=== PATIENT | female | born 1965 | race Caucasian/White ===

== ENCOUNTER 2019-07-26 22:20 | Emergency (ER) | payer MEDICARE, SELFPAY ==
[2019-07-26 22:36] VITALS: BP 127/84; PULSE 87; RESP 20; TEMP 37.1; O2SAT 98; BMI 28.3
--- NOTE | 2019-07-26 22:51 | CT_ITS ---
PROCEDURE: CT THORACIC SPINE WO CON CLINICAL HISTORY: BACK PAIN Posttraumatic pain, right-sided back pain following injury, history of breast cancer COMPARISON: No exams were available for comparison TECHNIQUE: Axial images obtained with sagittal and coronal reformats. All CT scans at the facility use one or more dose reduction, viz: automated exposure control, ma/kV adjustment per patient size (including targeted exams where dose is matched to indication, i.e. head), or iterative reconstruction technique. FINDINGS: Normal alignment. No thoracic fracture or dislocation. There is mild degenerative disc disease from T4 to T11 with small ventral osteophytes. No lytic or blastic change. IMPRESSION: Thoracic spondylosis. No acute fracture of the thoracic spine Dictated by: Bobby Holloway MD 07/27/2019 08:50 Electronically signed by Bobby Holloway MD in [place] 07/27/2019 08:50
--- NOTE | 2019-07-26 22:51 | CT_ITS ---
PROCEDURE: CT LUMBAR SPINE WO CON CLINICAL HISTORY: BACK PAIN Posttraumatic pain right-sided back rib, history of breast cancer COMPARISON: No exams were available for comparison TECHNIQUE: Axial images obtained with sagittal and coronal reformats. All CT scans at the facility use one or more dose reduction, viz: automated exposure control, ma/kV adjustment per patient size (including targeted exams where dose is matched to indication, i.e. head), or iterative reconstruction technique. FINDINGS: Normal alignment. No fracture or dislocation. Mild bulging disc at L3-L4 with mild facet and ligamentum hypertrophy and mild bilateral foraminal narrowing. Bulging disc at L4-5 with facet and ligamentum hypertrophy with bilateral foraminal narrowing and mild bilateral lateral recess narrowing with borderline narrowing of the canal. L5-S1: Bulging disc with facet ligamentum hypertrophic change. IMPRESSION: 1. No acute fracture. 2. Bulging disc from L3-S1 with facet ligamentum hypertrophy Dictated by: Bobby Holloway MD 07/27/2019 08:48 Electronically signed by Bobby Holloway MD in [facility] 07/27/2019 08:48
--- NOTE | 2019-07-26 23:01 | CT_ITS ---
PROCEDURE: CT ABDOMEN PELVIS W CON CLINICAL INDICATION: fall from hammock Posttraumatic pain, fall with injury and pain, blunt trauma, contusion or hematoma, increasing pain, history of breast cancer COMPARISON: ABDPELW/O CT ABD PELVIS W/O CONTRAST from 11/02/2015 TECHNIQUE: IV Contrast: 75ML OPTIRAY 350 Oral Contrast 20ml Gastroview Axial images obtained with sagittal and coronal reformats. All CT scans at the facility use one or more dose reduction, viz: automated exposure control, ma/kV adjustment per patient size (including targeted exams where dose is matched to indication, i.e. head), or iterative reconstruction technique. FINDINGS: There are atelectatic changes in the right lower lobe. There is a nondisplaced right 10th rib fracture posteriorly. No evidence of basilar pneumothorax. Breast implants are present. The liver has an unremarkable appearance. There are post cholecystectomy changes. No perihepatic fluid collection or hepatic laceration. The spleen has an unremarkable appearance. The adrenal glands are unremarkable. There is a 1 cm hypodensity of the right kidney suggesting a renal cyst. Sub cm hypodensity left kidney also suggesting a cyst. Too small to categorize. There is a 5 mm hypodensity in the head of the pancreas anteriorly image 41 series 3 and may be due to small cyst probably unchanged. No intestinal obstruction or free air. No evidence of appendicitis or diverticulitis. No localized fluid collections. No pelvic mass or abnormal fluid collection in the pelvis. Nondisplaced right 10th rib fracture. No other acute bony anomalies evident. IMPRESSION: 1. Nondisplaced right 10th rib fracture. 2. 5 mm hypodensity of the pancreatic head. Recommend six-month follow-up CT or MRI with pancreatic protocol to confirm short term stability Dictated by: Bobby Holloway MD 07/27/2019 08:44 Electronically signed by Bobby Holloway MD in [facility] 07/27/2019 08:44
--- NOTE | 2019-07-26 23:07 | HMH.EDFALL ---
ED Disposition Clinical Impression: Lumbar pain Rib fracture Qualifiers: Encounter type: subsequent encounter Rib fracture type: single rib Fracture type: closed Laterality: right Fracture healing: with routine healing Qualified Code(s): S22.31XD - Fracture of one rib, right side, subsequent encounter for fracture with routine healing Strain of lumbar region Qualifiers: Encounter type: initial encounter Qualified Code(s): S39.012A - Strain of muscle, fascia and tendon of lower back, initial encounter Disposition: Home, Self-Care Condition on Discharge: Good Instructions: DI for Low Back Pain, DI for Rib Fracture Additional Instructions: call pcp in am for follow up Prescriptions: Ketorolac Tromethamine [Toradol 10mg tablet] 10 mg PO Q6H 3 Days #12 tab Transmission Status: Pending to [facility] #[id number] Referrals: Alessandro Trejo [Primary Care Provider] - - Critical Care Critical Care Time: No Attestation: On 07/26/19, the high probability of a clinically significant, sudden or life threatening deterioration of the following system(s) required my full and direct attention, intervention and personal management. The time I documented below is in addition to time spent performing reported procedures but includes the following listed in this critical care notation. Medical Decision Making - Medical Records Medical records reviewed: Yes: I reviewed the patient's medical records. - Jeevan Inquiry Pt receiving controlled substance: No Vital Signs: 07/26/19 22:36 Temperature 98.8 F Temperature Source Oral Pulse Rate [Left Brachial] 87 Respiratory Rate 20 Blood Pressure [Left Arm] 127/84 Blood Pressure Mean [Left Arm] 98 Blood Pressure Source [Left Arm] Automatic Cuff Blood Pressure Position [Left Arm] Sitting 02 Sat by Pulse Oximetry 98 Oxygen Delivery Method Room Air - Lab Data Lab results reviewed: Yes: I reviewed the patient's lab results. Lab Results 07/26/19 23:05: WBC 7.2, RBC 4.84, Hgb 14.0, Hct 40.8, MCV 84.4, MCH 28.9, MCHC 34.2, RDW 14.8, Plt Count 227, MPV 7.3 L, Neut % (Auto) 67.7, Lymph % (Auto) 23.8, Boyd % (Auto) 4.6, Eos % (Auto) 3.5, Baso % (Auto) 0.5, Neut # (Auto) 4.9, Lymph # (Auto) 1.7, Boyd # (Auto) 0.3, Eos # (Auto) 0.3, Baso # (Auto) 0.0 07/26/19 23:05: Sodium 140, Potassium 4.1, Chloride 105, Carbon Dioxide 28, Anion Gap 11.1, BUN 13, Creatinine 0.50 L, Estimated Creat Clear 155, Estimated GFR 128, Est GFR ( Amer) 155, Glucose 112 H, Calcium 9.4, Total Bilirubin 0.3, AST 23, ALT 24, Alkaline Phosphatase 98, Total Protein 7.3, Albumin 4.3, Globulin 3.0, Albumin/Globulin Ratio 1.4 Result diagrams: 07/26/19 23:05 07/26/19 23:05 Orders (Tests/Meds): ED MEDICATIONS Discontinued Medications Generic Name Dose Route Start Last Admin Trade Name Freq PRN Reason Stop Dose Admin Ioversol 75 ml 07/27/19 00:04 07/27/19 00:05 Rad-Optiray 350 100ml Vial IV 07/27/19 00:05 75 ml ONCE ONE Administration Protocol Ketorolac Tromethamine 30 mg 07/26/19 23:10 07/26/19 23:16 Toradol 30mg/Ml Vial IV 07/26/19 23:11 30 mg ONCE ONE Administration Sodium Chloride 10 ml 07/27/19 00:04 07/27/19 00:05 Rad-Saline Flush 10ml Syringe IV 07/27/19 00:05 10 ml ONCE ONE Administration ORDERS Category Date Time Status CT abdomen pelvis w con Stat Cat Scan 07/26/19 23:[address] lumbar spine wo con Stat Cat Scan 07/26/19 22:[address] thoracic spine wo con Stat Cat Scan 07/26/19 22:51 Taken XR pelvis 1-2V Stat Exams 07/27/19 00:01 Taken XR ribs RT min 3V w CXR1V Stat Exams 07/27/19 00:01 Taken Urinalysis and Microscopic Stat Lab 07/26/19 23:01 Ordered - Radiology Data #1 Image(s): Chest, Pelvis Image Reviewed: Yes I reviewed the patient's radiology image Preliminary Findings: Normal/NAD - CT Data CT Scan: Abdomen, Pelvis, T-Spine, L-Spine Time Received: 00:[address] Reviewed: Yes: I have viewed the radiologist
[2019-07-26 23:13] LABS: Basophils % 0.5 % (0.1-2.0); Eosinophils # 0.3 K/mm3 (0.0-0.4); Eosinophils % 3.5 % (0.1-12.0); Hematocrit 40.8 % (37.0-47.0); Lymphocytes # 1.7 K/mm3 (0.7-4.5); Lymphocytes % 23.8 % (10-50); Mean Corpuscular HGB Conc 34.2 g/dL (31.8-35.4); Mean Corpuscular Hemoglobin 28.9 pg (27.0-31.2); Mean Corpuscular Volume 84.4 fl (81-99); Mean Platelet Volume 7.3 fl (7.4-10.4); Monocytes # 0.3 K/mm3 (0.1-1.0); Monocytes % 4.6 % (1.7-9.3); Neutrophils # 4.9 K/mm3 (1.8-7.8); Neutrophils % 67.7 % (37.0-80.0); Platelet Count 227 K/mm3 (142-424); Red Blood Count 4.84 M/mm3 (4.20-5.40); Red Cell Distribution Width 14.8 % (11.5-17.5); White Blood Count 7.2 K/mm3 (4.8-10.8)
[2019-07-26 23:23] LABS: Alanine Aminotransferase 24 U/L (12-78); Albumin Level 4.3 g/dl (3.5-5.0); Albumin/Globulin Ratio 1.4 (1.1-1.8); Alkaline Phosphatase 98 U/L (38-126); Anion Gap 11.1 mEq/L (5-15); Aspartate Amino Transferase 23 U/L (14-36); Bilirubin,Total 0.3 mg/dl (0.2-1.3); Blood Urea Nitrogen 13 mg/dl (7-17); Calcium 9.4 mg/dl (8.4-10.2); Carbon Dioxide 28 mmol/L (22.0-30.0); Chloride 105 mmol/L (98-107); Creatinine Clearance Estimated 155 mL/min (50-200); Estimated Glomerular Filt Rate 128 ml/min (>60); GFR (African American) 155 ML/MIN (>60); Glucose 112 mg/dl (74-100); Potassium 4.1 mmoL/L (3.5-5.1); Sodium 140 mmol/L (136-145); Total Protein,Serum 7.3 g/dl (6.3-8.2)
--- NOTE | 2019-07-27 00:01 | XR_ITS ---
PROCEDURE: XR PELVIS 1-2V CLINICAL INDICATION: fell from hammock Posttraumatic pain COMPARISON: No exams were available for comparison TECHNIQUE: XR Pelvis AP View FINDINGS: No fracture or dislocation is evident. No significant degenerative change. Contrast is present within the urinary bladder both kidneys and ureters. No evidence of contrast extravasation IMPRESSION: No acute findings. Dictated by: Bobby Holloway MD 07/27/2019 08:13 Electronically signed by Bobby Holloway MD in [place] 07/27/2019 08:13
--- NOTE | 2019-07-27 00:01 | XR_ITS ---
PROCEDURE: XR RIBS RT MIN 3V W CXR1V CLINICAL INDICATION: PAIN Worsening right-sided rib pain following injury COMPARISON: CT ABDOMEN PELVIS W CON from 07/26/2019 FINDINGS: Frontal view of the chest shows mild atelectatic changes in the right lower lobe. No displaced fractures are apparent. Six CT abdomen demonstrated nondisplaced fracture of the right 10th rib which is below limits of resolution on these images. IMPRESSION: Right basilar atelectasis. No displaced fractures evident. Known right 10th rib fracture nondisplaced not well delineated on these images Dictated by: Bobby Holloway MD 07/27/2019 08:15 Electronically signed by Bobby Holloway MD in [place] 07/27/2019 08:15
[2019-07-27 00:55] VITALS: BP 127/84; PULSE 87; RESP 20; TEMP 37.1; O2SAT 98
== END 2019-07-27 01:07 | disposition home or self-care (01) ==
PROVIDERS: Emergency Provider Emergency Medicine; PCP Pediatrics
DX: S22.31XA Fracture of one rib, right side, initial encounter for closed fracture (principal); S39.012A Strain of muscle, fascia and tendon of lower back, initial encounter; W08.XXXA Fall from other furniture, initial encounter; Y92.017 Garden or yard in single-family (private) house as the place of occurrence of the external cause; F17.210 Nicotine dependence, cigarettes, uncomplicated; Z88.2 Allergy status to sulfonamides; Z88.5 Allergy status to narcotic agent
CPT/HCPCS: 71101; 72128; 72131; 72170; 74177; 80053; 85025; 96374; 99284; Q9967

== ENCOUNTER → 2021-03-14 15:20 | Outpatient (CLI) | payer MEDICARE, SELFPAY | PROVIDERS: PCP Pediatrics; Visit Provider Nurse Practitioner | DX: U07.1 COVID-19 (principal) | CPT/HCPCS: C9803; U0003; U0005 ==

== ENCOUNTER 2021-03-15 13:20 | Emergency (ER) | payer MEDICARE, SELFPAY ==
[2021-03-15 13:50] VITALS: BP 138/89; PULSE 89; RESP 17; TEMP 36.8; O2SAT 98; BMI 27.8
--- NOTE | 2021-03-15 14:16 | HMH.EDUTC ---
[facility] Disposition Clinical Impression: COVID-19 Disposition: Home, Self-Care Condition on Discharge: Good Instructions: DI for COVID-19 (Suspected or Confirmed ), Preventing the Spread of Coronavirus Discharge Instructions Additional Instructions: ? Start antibiotic today. Be sure to complete entire prescription even if feeling better ? Monitor temp. Tylenol every 4 hours as needed and / or ibuprofen every 6 hours as needed ( As long as your primary care physician has told you that it ok to take both. For fever/aches/pains ER if no less than 101 despite Tylenol or Motrin ? Humidifier/vaporizer or hot steamy shower ? Inhaler every 4-6 hours as needed like we discussed. If unsure how to use it, ask pharmacist to demonstrate how. Should help open airways and improve cough, wheezing, and shortness of breath ? Mucinex for your cough Be sure to drink lots of water. Follow up IMMEDIATELY for new or worsening of symptoms OR no noticeable improvement over the next 48-72 hours. 911 immediately for any life threatening symptoms such as chest pain or difficulty breathing Prescriptions: Albuterol Sulfate [Proventil-HFA 90mcg/puff Inh] 1 - 2 puffs IH Q6HP PRN #1 each PRN Reason: Shortness Of Breath Transmission Status: Pending to [facility] guaiFENesin [Mucinex] 1,200 mg PO Q12HP PRN #10 tab PRN Reason: Congestion Transmission Status: Pending to [facility] methylPREDNISolone [Medrol 4mg tab] 4 mg PO DIRECTED #21 tab Transmission Status: Pending to [facility] Referrals: Alessandro Trejo [Primary Care Provider] - As needed Forms: Work/School Release Time of Disposition: 14:29 Medical Decision Making - Jeevan Inquiry Pt receiving controlled substance: No Jeevan was queried for this patient: No Vital Signs: 03/15/21 13:50 Temperature 98.3 F Temperature Source Oral Pulse Rate [Right Brachial] 89 Respiratory Rate 17 Blood Pressure [Right Arm] 138/89 Blood Pressure Mean [Right Arm] 105 Blood Pressure Source [Right Arm] Automatic Cuff Blood Pressure Position [Right Arm] Sitting 02 Sat by Pulse Oximetry 98 [facility] HPI - General Stated complaint: h/a, congestion Time Seen by Provider: 03/15/21 14:16 Mode of Arrival: Ambulatory Source of Information: Patient Limitations: No Limitations Description of Symptoms (Recalled from Triage Doc. by RN): PATIENT C/O FEVER, CHEST CONGESTION, FATIGUE, AND DIARRHEA SINCE SATURDAY HEENT Symptoms (Recalled from RN notes): Yes Resp Symptoms (Recalled from RN notes): No Skin Symptoms (Recalled from RN notes): No MS Symptoms (Recalled from RN notes): No Functional Status (Recalled from RN notes): WNL - History of Present Illness Provider Complaint: Patient states that she has been having headache, fever on and off and diarrhea since Saturday States that she also feels like she is having some chest congestion States that she was tested for COVID yesterday but hasnt heard anything so she came in to get checked out States that she is suppose to be using an inhaler for asthma but is out - Related Data Home Medications Medication Instructions Recorded Confirmed Bisoprolol Fumarate [Bisoprolol 5 mg PO DAILY 07/26/19 07/26/19 5mg Tablet] Previous Rx's Medication Instructions Recorded Ketorolac Tromethamine [Toradol 10 mg PO Q6H 3 Days #12 tab 07/27/19 10mg tablet] Albuterol Sulfate [Proventil-HFA 1 - 2 puffs IH Q6HP PRN #1 each 03/15/21 90mcg/puff Inh] guaiFENesin [Mucinex] 1,200 mg PO Q12HP PRN #10 tab 03/15/21 methylPREDNISolone [Medrol 4mg 4 mg PO DIRECTED #21 tab 03/15/21 tab] Allergies Allergy/AdvReac Type Severity Reaction Status Date / Time codeine [CODEINE] Allergy Unknown ITCHING Verified 03/23/19 12:28 hydromorphone [From DILAUDID] Allergy Unknown CHEST PAIN Verified 03/23/19 12:28 morphine [MORPHINE] Allergy Unknown ITCHING Verified 03/23/19 12:28 sulfamethoxazole Allergy Unknown UNKNOWN Verified 03/23/19 12:28 [From BACTRI
[2021-03-15 14:38] VITALS: BP 138/89; PULSE 89; RESP 17; TEMP 36.8; O2SAT 98
== END 2021-03-15 15:03 | disposition home or self-care (01) ==
PROVIDERS: Emergency Provider Nurse Practitioner; PCP Pediatrics
DX: U07.1 COVID-19 (principal); Z88.2 Allergy status to sulfonamides; Z88.5 Allergy status to narcotic agent
CPT/HCPCS: G0463; 99202

== ENCOUNTER 2021-07-01 17:54 | Emergency (ER) | payer MEDICARE, SELFPAY ==
[2021-07-01 17:55] VITALS: BP 140/70; PULSE 89; RESP 18; TEMP 36.7; O2SAT 97; BMI 28.3
--- NOTE | 2021-07-01 18:09 | XR_ITS ---
PROCEDURE INFORMATION: Exam: XR Left Hand Exam date and time: 07/01/21 06:07 PM Age: 55 years old Clinical indication: Injury or trauma; Other: Smashed finger; Laceration; Left; Patient HX: Lac to ring finger, smashed it with window TECHNIQUE: Imaging protocol: XR Left hand. Views: 3 or more views. COMPARISON: No relevant prior studies available. FINDINGS: Bones/joints: Normal. Soft tissues: Normal. IMPRESSION: No acute findings.
[2021-07-01 18:24] VITALS: BP 140/70; PULSE 87; O2SAT 97
[2021-07-01 18:30] VITALS: BP 128/75; PULSE 93; O2SAT 97
--- NOTE | 2021-07-01 18:36 | HMH.EDWNDL ---
ED Disposition Clinical Impression: Laceration of left ring finger with damage to nail Qualifiers: Encounter type: initial encounter Foreign body presence: without foreign body Qualified Code(s): S61.315A - Laceration without foreign body of left ring finger with damage to nail, initial encounter Disposition: Home, Self-Care Condition on Discharge: Good Instructions: DI for Laceration Repair Additional Instructions: folow up Ortho/Hand in 7 -10 days, return for worse Prescriptions: Amoxicillin/Potassium Clav [Amox-Clav 875-125 mg Tablet] 1 tab PO BID #20 tab Transmission Status: Received by [facility] Mupirocin [Bactroban 2% Ointment 22gm tube] 1 applicatio TP TID #22 gm Transmission Status: Received by [facility] Referrals: Alessandro Trejo [Primary Care Provider] - Chivo Nugent MD [Staff Physician] - - Critical Care Critical Care Time: No Attestation: On 07/01/21, the high probability of a clinically significant, sudden or life threatening deterioration of the following system(s) required my full and direct attention, intervention and personal management. The time I documented below is in addition to time spent performing reported procedures but includes the following listed in this critical care notation. Medical Decision Making - Medical Records Medical records reviewed: Yes: I reviewed the patient's medical records. - Jeevan Inquiry Pt receiving controlled substance: No Vital Signs: 07/01/21 17:55 07/01/21 18:24 07/01/21 18:30 Temperature 98.1 F Temperature Source Oral Pulse Rate 87 93 H Pulse Rate [Left Radial] 89 Respiratory Rate 18 Blood Pressure 140/70 128/75 Blood Pressure [Right Arm] 140/70 Blood Pressure Mean 104 94 Blood Pressure Mean [Right Arm] 93 Blood Pressure Source [Right Arm] Automatic Cuff Blood Pressure Position [Right Arm] Sitting 02 Sat by Pulse Oximetry 97 97 97 Oxygen Delivery Method Room Air 07/01/21 19:02 Temperature 98.0 F Temperature Source Oral Pulse Rate 83 Pulse Rate [Left Radial] Respiratory Rate 18 Blood Pressure 121/74 Blood Pressure [Right Arm] Blood Pressure Mean Blood Pressure Mean [Right Arm] Blood Pressure Source [Right Arm] Blood Pressure Position [Right Arm] 02 Sat by Pulse Oximetry Oxygen Delivery Method Orders (Tests/Meds): ED MEDICATIONS Discontinued Medications Generic Name Dose Route Start Last Admin Trade Name Freq PRN Reason Stop Dose Admin Amoxicillin/Clavulanate Potassium 1 each 07/01/21 18:40 07/01/21 18:47 Amoxicillin/Pot Clavulan 500mg Tablet PO 07/01/21 18:41 1 each ONCE ONE Administration Bacitracin 1 each 07/01/21 18:40 07/01/21 18:47 Bacitracin Oint 0.9gm Udp TP 07/01/21 18:41 1 each ONCE ONE Administration Tetanus/Reduced Diphtheria/Acell Pertussis 0.5 ml 07/01/21 18:38 07/01/21 18:40 Tet/Diphth/Pert-Adult 0.5ml Syringe IM 07/01/21 18:39 0.5 ml .ONCE ONE Administration Medical Decision Narrative: left ring finger distal phalynx digital block lido 1% plain left ring finger distal phalynx nail removal left ring finger 1.5 laceration distal phalync irrig well, no exposed bone, 4-0 nylon x4 Wound/Laceration HPI - General Chief Complaint: Wound/Laceration Stated Complaint: AO05/14 @1730 left ring finger injury Time Seen by Provider: 07/01/21 17:54 Mode of Arrival: Ambulatory Limitations: No Limitations Description of Symptoms (Recalled from ER Triage Doc. by RN): c/o nail coming off left index finger after getting it smashed by window before arrival. - History of Present Illness HPI narrative: left ring fingernail laceration from window drop/smash [employer] Associated symptoms: pain - Related Data Home Medications Medication Instructions Recorded Confirmed Bisoprolol Fumarate [Bisoprolol 5 mg PO DAILY 07/26/19 07/26/19 5mg Tablet] Previous Rx's Medication Instructions Recorded Ketorolac Tromethamine [Tor
[2021-07-01 19:02] VITALS: BP 121/74; PULSE 83; RESP 18; TEMP 36.7; O2SAT 97
== END 2021-07-01 19:13 | disposition home or self-care (01) ==
PROVIDERS: Emergency Provider Emergency Medicine; PCP Pediatrics
DX: S61.315A Laceration without foreign body of left ring finger with damage to nail, initial encounter (principal); W23.0XXA Caught, crushed, jammed, or pinched between moving objects, initial encounter; Z23 Encounter for immunization
CPT/HCPCS: 11730; 12001; 73130; 90471; 90715; 99283

== ENCOUNTER 2022-01-16 18:21 | Emergency (ER) | payer MEDICARE, SELFPAY ==
--- NOTE | 2022-01-16 20:01 | EXP.UTC ---
Discharge Plan Disposition Patient Disposition: Home, Self-Care Condition: Good Prescriptions Prescriptions: New benzonatate [benzonatate] 100 mg capsule 100 mg PO TIDP PRN (Reason: Cough) Qty: 30 0RF oseltamivir [Tamiflu] 75 mg capsule 75 mg PO BID Qty: 10 0RF methylprednisolone 4 mg Tablets,Dose Pack 4 mg PO DIRECTED Qty: 21 0RF No Action methylprednisolone 4 MG tablet 4 mg PO DIRECTED Qty: 21 0RF Rx Instructions: Take as directed on package instructions albuterol sulfate 200 PUFFS HFA aerosol inhaler 1 - 2 puffs IH Q6HP PRN (Reason: Shortness Of Breath) Qty: 1 0RF guaifenesin 1,200 MG tablet extended release 12hr 1,200 mg PO Q12HP PRN (Reason: Congestion) Qty: 10 0RF bisoprolol fumarate 5 MG tablet 5 mg PO DAILY ketorolac 10 MG tablet 10 mg PO Q6H 3 Days Qty: 12 0RF amoxicillin-pot clavulanate 1 EACH tablet 1 tab PO BID Qty: 20 0RF mupirocin 22 GM ointment 1 applicatio TP TID Qty: 22 0RF Referrals Follow up/Referrals: Alessandro Trejo [Primary Care Provider] - See instructions Activity Restrictions/Add. Instructions Additional Instructions/Restrictions: Drink plenty of fluids. Take tylenol or ibuprofen for pain or fever. Take the medications as directed. Follow up with your regular doctor. GO TO THE ER FOR ANY WORSENING SYMPTOMS Clinical Impressions Clinical Impression: Acute viral syndrome Stand Alone Forms Stand Alone Forms: Work/School Release Instructions Patient Instructions: DI for Influenza -- Adult, DI for Viral Syndrome, Oseltamivir Discharge ED Provider: Dilshad Cardoza [facility] General Stated complaint: DIZZY, CONGESTION, COUGH Time Seen by Provider: 01/16/22 20:01 History of Present Illness Provider Complaint: She states that for the past 2 days she has had body aches, chills, chest congestion and she has felt bad. she has a history of asthma. Related Data Home Medications Medication Instructions Recorded Confirmed bisoprolol fumarate 5 mg tablet 5 mg PO DAILY HEART 07/26/19 07/26/19 Previous Rx's Medication Instructions Recorded ketorolac 10 mg tablet 10 mg PO Q6H 3 days #12 tabs 07/27/19 albuterol sulfate 90 mcg/actuation 1 - 2 puffs IH Q6HP PRN Shortness 03/15/21 aerosol inhaler Of Breath #1 ea guaifenesin 1,200 mg tablet, 1,200 mg PO Q12HP PRN Congestion 03/15/21 extended release 12 hr #10 tabs methylprednisolone 4 mg tablet 4 mg PO DIRECTED #21 tabs 03/15/21 amoxicillin 875 mg-potassium 1 tab PO BID #20 tabs 07/01/21 clavulanate 125 mg tablet mupirocin 2 % topical ointment 1 applicatio topical TID ##22 07/01/21 benzonatate 100 mg capsule 100 mg PO TIDP PRN Cough #30 caps 01/16/22 methylprednisolone 4 mg tablets in 4 mg PO DIRECTED #21 tabs 01/16/22 a dose pack oseltamivir 75 mg capsule (Tamiflu) 75 mg PO BID #10 caps 01/16/22 Allergies Allergy/AdvReac Type Severity Reaction Status Date / Time codeine [CODEINE] Allergy Unknown ITCHING Verified 01/16/22 20:15 hydromorphone [From DILAUDID] Allergy Unknown CHEST PAIN Verified 01/16/22 20:15 morphine [MORPHINE] Allergy Unknown ITCHING Verified 01/16/22 20:15 sulfamethoxazole Allergy Unknown UNKNOWN Verified 01/16/22 20:15 [From BACTRIM] trimethoprim [From BACTRIM] Allergy Unknown UNKNOWN Verified 01/16/22 20:15 Sulfa (Sulfonamide Allergy Verified 01/16/22 20:15 Antibiotics) [facility] Social History Smoking Status: Current every day smoker alcohol intake: never substance use type: denies use current occupational status: other Travel in the last 8 weeks: None household members: family housing: house ROS Obtained: Yes All systems reviewed & no additional complaints except as documented Constitutional Constitutional: Reports chills and Reports fever(s) Eyes Eyes: Denies eye discharge ENT Ears, Nose, Mouth, and Throat: Reports as per HPI Cardi
[2022-01-16 20:13] VITALS: BP 128/73; PULSE 72; RESP 18; TEMP 36.8; O2SAT 96; BMI 29.4
[2022-01-16 20:28] LABS: UTC Influenza A Antigen Negative (Negative); UTC Strep Screen (Rapid) Negative (Negative)
[2022-01-16 20:29] LABS: UTC Influenza B Antigen Negative (Negative)
[2022-01-16 20:48] VITALS: BP 128/73; PULSE 72; RESP 18; TEMP 36.8
[2022-01-16 20:53] LABS: Adenovirus,PCR Not Detected (NotDetected); Bordetella Pertussis Not Detected (NotDetected); Chlamydophila Pneumoniae, PCR Not Detected (NotDetected); Coronavirus 19, PCR Not Detected (NotDetected); Coronavirus 229E Not Detected (NotDetected); Coronavirus NL63 Not Detected (NotDetected); Coronavirus OC43 Not Detected (NotDetected); Coronovirus HKU1,PCR Not Detected (NotDetected); Human Metapneumovirus Not Detected (NotDetected); Influenza A, PCR Not Detected (NotDetected); Influenza AH1, 2009 Not Detected (NotDetected); Influenza AH1, PCR Not Detected (NotDetected); Influenza AH3,PCR Not Detected (NotDetected); Influenza B, PCR Not Detected (NotDetected); Mycoplasma Pneumoniae, PCR Not Detected (NotDetected); Parainfluenza 1, PCR Not Detected (NotDetected); Parainfluenza 2, PCR Not Detected (NotDetected); Parainfluenza 3, PCR Not Detected (NotDetected); Parainfluenza 4, PCR Not Detected (NotDetected); Respiratory Syncytial Virus Not Detected (NotDetected); Rhinovirus/Enterovirus Not Detected (NotDetected)
== END 2022-01-16 20:49 | disposition home or self-care (01) ==
PROVIDERS: Emergency Provider Nurse Practitioner Family; PCP Pediatrics
DX: R42 Dizziness and giddiness (principal); R50.9 Fever, unspecified; R06.02 Shortness of breath; M19.90 Unspecified osteoarthritis, unspecified site; R09.81 Nasal congestion; R05.9 Cough, unspecified; Z20.822 Contact with and (suspected) exposure to COVID-19; J45.909 Unspecified asthma, uncomplicated; F17.200 Nicotine dependence, unspecified, uncomplicated; Z79.51 Long term (current) use of inhaled steroids; Z79.52 Long term (current) use of systemic steroids; Z79.899 Other long term (current) drug therapy; Z88.2 Allergy status to sulfonamides; Z88.5 Allergy status to narcotic agent; Z88.6 Allergy status to analgesic agent; Z88.8 Allergy status to other drugs, medicaments and biological substances
CPT/HCPCS: 87581; 87632; 87798; 87804; 87880; 99213; C9803; G0463; U0003; U0005

== ENCOUNTER 2023-04-12 18:05 | Emergency (ER) | payer MEDICARE, SELFPAY ==
[2023-04-12 18:46] VITALS: BMI 25.0
[2023-04-12 18:47] LABS: Apearance,Urine Cloudy (Clear); Bilirubin,Urine Negative (Negative); Blood, Urine Negative (Negative); Color,Urine Yellow (Yellow); Glucose,Urine (UA) Negative (Negative); Ketones,Urine Negative (Negative); PH,Urine 5.5 (5.0-8.5); Protein,Urine Trace (Negative); Specific Gravity, Urine >= 1.030 (1.005-1.030); UTC Leukocyte Esterase,Urine Negative (Negative); UTC Nitrate,Urine Positive (Negative); Urobilinogen,Urine 0.2 EU/dl (0.2)
[2023-04-12 19:05] VITALS: BP 127/84; PULSE 103; RESP 19; TEMP 36.8; O2SAT 99; BMI 28.2
--- NOTE | 2023-04-12 19:08 | EXP.UTC ---
Discharge Plan Disposition Patient Disposition: Home, Self-Care Condition: Good Prescriptions Prescriptions: New phenazopyridine [Pyridium] 200 mg tablet 200 mg PO Q8H 2 Days Qty: 6 0RF ciprofloxacin HCl [Cipro] 500 mg tablet 500 mg PO BID 7 Days Qty: 14 0RF ondansetron 4 mg Tablet,Disintegrating 4 mg PO Q8H PRN (Reason: Nausea) Qty: 8 0RF nitrofurantoin monohyd/m-cryst [Macrobid] 100 mg Capsule 100 mg PO BID Qty: 10 0RF Rx Instructions: must administer with a meal/food Referrals Follow up/Referrals: Alessandro Trejo [Primary Care Provider] - See instructions Activity Restrictions/Add. Instructions Additional Instructions/Restrictions: Drink plenty of fluids. Take tylenol or ibuprofen for pain or fever. Take the medications as directed. Follow up with your regular doctor. GO TO THE ER FOR ANY WORSENING SYMPTOMS The pyridium will make your urine turn orange, this is an expected side effect. It will stain your clothes if it comes into contact with them. We will culture the urine. That will tell what bacteria is causing your infection and which antibiotics will treat it best. Sometimes the first antibiotic we prescribe turns out to not work against different bacteria. So, make sure you follow up within 3 days if you are not getting better. Clinical Impressions Clinical Impression: UTI (urinary tract infection) Instructions Patient Instructions: Urinary Tract Infection, Urine Culture, DI for Urinary Tract Infection (UTI), Ondansetron, Phenazopyridine Discharge ED Provider: Dilshad Cardoza [facility] General Stated complaint: possible uti Time Seen by Provider: 04/12/23 19:08 History of Present Illness Provider Complaint: She states that for the past 2 days she has had low back pain, dysuria, and urinary frequency. Related Data Previous Rx's Medication Instructions Recorded ciprofloxacin HCl 500 mg tablet 500 mg PO BID 7 days #14 tabs 04/12/23 (Cipro) ondansetron 4 mg disintegrating 4 mg PO Q8H PRN Nausea #8 tabs 04/12/23 tablet phenazopyridine 200 mg tablet 200 mg PO Q8H 2 days #6 tabs 04/12/23 (Pyridium) nitrofurantoin 100 mg PO BID #10 caps 04/14/23 monohydrate/macrocrystals 100 mg capsule (Macrobid) Allergies Allergy/AdvReac Type Severity Reaction Status Date / Time codeine [CODEINE] Allergy Unknown ITCHING Verified 01/16/22 20:15 hydromorphone [From DILAUDID] Allergy Unknown CHEST PAIN Verified 01/16/22 20:15 morphine [MORPHINE] Allergy Unknown ITCHING Verified 01/16/22 20:15 sulfamethoxazole Allergy Unknown UNKNOWN Verified 01/16/22 20:15 [From BACTRIM] trimethoprim [From BACTRIM] Allergy Unknown UNKNOWN Verified 01/16/22 20:15 Sulfa (Sulfonamide Allergy Verified 01/16/22 20:15 Antibiotics) [facility] Disclaimer: The information contained in this section may have been updated after the patient was seen, as this information can be updated by other users. Medical History (Updated 04/12/23 @ 19:31 by Dilshad Cardoza APRN) Asthma Migraine Urinary tract infection Social History Smoking Status: Current every day smoker alcohol intake: never substance use type: denies use current occupational status: other Travel in the last 8 weeks: None household members: family housing: house ROS Obtained: Yes All systems reviewed & no additional complaints except as documented Constitutional Constitutional: Reports system reviewed and no additional complaints, except as documented, Denies chills and Denies fever(s) Eyes Eyes: Denies eye discharge ENT Ears, Nose, Mouth, and Throat: Denies dysphagia, Denies sore throat and Denies throat swelling Cardiovascular Cardiovascular: Denies chest pain and Denies dyspnea Respiratory Respiratory: Denies chest congestion, Denies cough and Denies dyspnea Gastrointestinal Gastrointestingal: Denies abdominal pain, constipation, diarrhea, dysphagia, nausea or vomiting Genitourinary Female Genitourinary: Reports as per HPI, Reports dysuria, Reports urinary frequency, Denies urinary incontinence, Reports urinary hesitancy and Reports urinary urgency Musculoskeletal Musculoskeletal: Denies arthralgias and Reports back pain Integumentary/Breasts Skin/Breast: Denies rash Neurologic Neurologic: Denies paresthesias Allergic/Immunologic Allergic/Immunologic: Denies throat swelling Physical Exam General General appearance: alert and in no apparent distress Head Head exam: atraumatic and normocephalic Eye Eye exam: Present normal appearance, PERRL and EOMI ENT ENT exam: Present normal exam, mucous membranes moist, TM's normal bilaterally and normal external ear exam Neck Neck exam: Present normal inspection, full ROM and trachea midline; Absent tenderness, meningismus or lymphadenopathy Chest Chest inspection: Present normal inspection and symmetric chest wall rise; Absent tenderness Respiratory Respiratory exam: Present normal lung sounds bilaterally; Absent respiratory distress, wheezes or stridor Cardiovascular Cardiovascular exam: Present regular rate, normal rhythm and normal heart sounds Abdominal Exam Abdominal exam: Present soft and normal bowel sounds; Absent distention, tenderness, guarding, rebound, rigidity, incision, psoas sign, obturator sign, heel tap sign, Chin's sign, Rovsing's sign or tenderness at McBurney's Point Extremities Exam Extremities exam: Present normal inspection, full ROM and normal capillary refill; Absent tenderness, edema, joint swelling, calf tenderness or cyanosis Back Exam Back exam: Present normal inspection and full ROM; Absent tenderness, CVA tenderness (R) or CVA tenderness (L) Neurological Exam Neurological exam: Present alert, oriented X3 and normal gait Psychiatric Psychiatric exam: Present normal affect and normal mood Skin Skin exam: Present warm, dry, intact and normal color Lymphatic Lymphatic Findings: no adenopathy Medical Decision Making Medical Records Medical records reviewed: No I reviewed the patient's medical records. Jeevan Inquiry Pt receiving controlled substance: No Lab Data Lab results reviewed: Yes I reviewed the patient's lab results. Lab Results 04/12/23 18:46: Urine Color Yellow, Urine Appearance Cloudy, Urine pH 5.5, Ur Specific [place] >= 1.030, Urine Protein Trace, Urine Glucose (UA) Negative, Urine Ketones Negative, Urine Blood Negative, Urine Nitrate Positive A, Urine Bilirubin Negative, Urine Urobilinogen 0.2, Ur Leukocyte Esterase Negative Orders (Tests/Meds): ORDERS Category Date Time Status Urine Culture Stat Micro 04/12/23 18:46 Ordered
[2023-04-12 19:32] VITALS: BP 127/84; PULSE 103; RESP 19; TEMP 36.8; O2SAT 99
[2023-04-12] MEDS: levoFLOXacin 500MG TAB 500 MG PO (19:39)
== END 2023-04-12 19:40 | disposition home or self-care (01) ==
PROVIDERS: Emergency Provider Nurse Practitioner Family; PCP Pediatrics
DX: N39.0 Urinary tract infection, site not specified (principal); M54.59 Other low back pain; F17.210 Nicotine dependence, cigarettes, uncomplicated
CPT/HCPCS: 81003; 87086; 99212; 99214; G0463

== ENCOUNTER 2023-12-16 12:31 | Emergency (ER) | payer MEDICARE, SELFPAY ==
[2023-12-16 12:32] VITALS: BP 140/87; PULSE 85; RESP 16; TEMP 36.9; O2SAT 96; BMI 28.3
--- NOTE | 2023-12-16 12:33 | ECG_ITS ---
APPROVED REPORT Exam: Resting ECG HR:87 bpm ECG Measurements Heart Rate 87 AXES MO 137 P 54 QRSd 78 QRS 71 QT 347 T 71 QTc 391 Conclusion SINUS RHYTHM NORMAL ECG UNCONFIRMED REPORT Electronically signed by : MIYA RUSSELL, 12/17/2023 05:27:19
--- NOTE | 2023-12-16 12:40 | XR_ITS ---
PROCEDURE INFORMATION: Exam: XR Chest Exam date and time: 12/16/2023 1:01 PM Age: 58 years old Clinical indication: Shortness of breath; Additional info: Chest tightness, SOB TECHNIQUE: Imaging protocol: Radiologic exam of the chest. Views: 2 views. COMPARISON: CR XR RIBS RT MIN 3V W CXR1V 07/27/2019 12:04 AM FINDINGS: Lungs: Stable 3 mm right upper lobe nodule likely a granuloma. No consolidation. Pleural spaces: Unremarkable. No pleural effusion. No pneumothorax. Heart/Mediastinum: Unremarkable. No cardiomegaly. Bones/joints: Unremarkable. IMPRESSION: No acute findings.
[2023-12-16 12:49] LABS: Basophils % 0.7 % (0.1-2.0); Eosinophils # 0.1 K/mm3 (0.0-0.4); Eosinophils % 2.3 % (0.1-12.0); Hematocrit 45.2 % (37.0-47.0); Hemoglobin 15.1 g/dL (12.2-16.2); Lymphocytes # 1.5 K/mm3 (0.7-4.5); Lymphocytes % 26.8 % (10-50); Mean Corpuscular HGB Conc 33.5 g/dL (31.8-35.4); Mean Corpuscular Hemoglobin 28.1 pg (27.0-31.2); Mean Corpuscular Volume 83.9 fl (81-99); Mean Platelet Volume 7.3 fl (7.4-10.4); Monocytes # 0.3 K/mm3 (0.1-1.0); Monocytes % 5.1 % (1.7-9.3); Neutrophils # 3.6 K/mm3 (1.8-7.8); Neutrophils % 65.2 % (37.0-80.0); Platelet Count 201 K/mm3 (142-424); Red Blood Count 5.38 M/mm3 (4.20-5.40); Red Cell Distribution Width 15.5 % (11.5-17.5); White Blood Count 5.5 K/mm3 (4.8-10.8)
--- NOTE | 2023-12-16 12:54 | PC.NURSE ---
Dr Azevedo at bedside. skin pink warm and dry Resp full and easy Pt states she has no recent fever or coughs worse than normal Pt in sinus rythm per continuous heart monitor. FELDER x4 Pedal pulses strong and equal no peripheral edama noted.
[2023-12-16 12:57] LABS: Albumin Level 4.4 g/dl (3.5-5.0); Chloride 108 mmol/L (98-107); Potassium 3.8 mmoL/L (3.5-5.1); Sodium 140 mmol/L (136-145)
[2023-12-16 13:00] LABS: Alanine Aminotransferase 44 U/L (12-78); Albumin/Globulin Ratio 1.5 (1.1-1.8); Alkaline Phosphatase 115 U/L (38-126); Anion Gap 11.8 mEq/L (5-15); Aspartate Amino Transferase 32 U/L (14-36); Bilirubin,Total 0.6 mg/dl (0.2-1.3); Blood Urea Nitrogen 11 mg/dl (7-17); Calcium 9.1 mg/dl (8.4-10.2); Carbon Dioxide 24 mmol/L (22.0-30.0); Creatinine Clearance Estimated 146 mL/min (50-200); Estimated Glomerular Filt Rate 126 ml/min (>60); GFR (African American) 152 ML/MIN (>60); Glucose 82 mg/dl (74-100); Total Protein,Serum 7.4 g/dl (6.3-8.2)
[2023-12-16] MEDS: IBUPROFEN 600 MG TABLET PO (13:03)
[2023-12-16 13:10] LABS: NT Pro Brain Natriuretic Pep. < 20.0 pg/mL (0-125)
[2023-12-16 13:19] LABS: Troponin I < 0.01 ng/ml (0.00-0.034)
[2023-12-16 13:30] VITALS: BP 126/71; PULSE 77; RESP 13; O2SAT 95
[2023-12-16 14:00] VITALS: BP 124/74; PULSE 74; RESP 18; O2SAT 93
[2023-12-16 14:18] LABS: HIV (1&2) Antibody Rapid NONREACTIVE (NONREACTIVE)
--- NOTE | 2023-12-16 14:37 | ED_ITS ---
Discharge Plan Disposition Patient Disposition: Home, Self-Care Condition: Good Prescriptions Prescriptions: No Action phenazopyridine [Pyridium] 200 mg tablet 200 mg PO Q8H 2 Days Qty: 6 0RF ciprofloxacin HCl [Cipro] 500 mg tablet 500 mg PO BID 7 Days Qty: 14 0RF ondansetron 4 mg Tablet,Disintegrating 4 mg PO Q8H PRN (Reason: Nausea) Qty: 8 0RF nitrofurantoin monohyd/m-cryst [Macrobid] 100 mg Capsule 100 mg PO BID Qty: 10 0RF Rx Instructions: must administer with a meal/food Referrals Follow up/Referrals: Provider,Referral, MD [Primary Care Provider] - See instructions Clinical Impressions Clinical Impression: Upper respiratory infection, viral, Acute viral syndrome, Chest tightness Print Language Print Language: Greenlandic Discharge ED Provider: Christopher Azevedo HPI General Chief Complaint: Chest Pain Stated Complaint: Chest Pain Time Seen by Provider: 12/16/23 12:35 Mode of Arrival: Ambulatory Source of Information: Patient Limitations: No Limitations Description of Symptoms (Recalled from ER Triage Doc. by RN): Pt states she had mid sternal chest pain on Saturday and today feels weaker and more short of breath than normal. Describes chest tightness a 0 on a 1-10 scale History of Present Illness HPI narrative: 58yoF patient presents with a chief complaint of chest tightness that began on Saturday. She describes experiencing chest and side pain on the same day, though the pain has since subsided. Currently, the patient reports a sensation of her heart beating harder than usual. Additionally, the patient has been feeling weaker than usual, with symptoms including shortness of breath and increased fatigue starting from Saturday. She also experienced diarrhea last Saturday, which has resolved and is not considered related to her current symptoms. The patient's past medical history includes cardiomyopathy, being 14 years cancer-free from breast cancer, and asthma. She suspects she may have early- onset dementia, although this has not been formally diagnosed. She denies any history of blood clots or leg swelling. Lifestyle factors include smoking. The patient has not received vaccinations for flu, pneumonia, or COVID-19. She reports a cough, which she describes as consistent with her usual cough, and denies recent fevers, runny nose, or stuffy nose. Related Data Previous Rx's ?Medication ?Instructions ?Recorded ciprofloxacin HCl 500 mg tablet 500 mg PO BID 7 days #14 tabs 04/12/23 (Cipro) ondansetron 4 mg disintegrating 4 mg PO Q8H PRN Nausea #8 tabs 04/12/23 tablet phenazopyridine 200 mg tablet 200 mg PO Q8H 2 days #6 tabs 04/12/23 (Pyridium) nitrofurantoin 100 mg PO BID #10 caps 04/14/23 monohydrate/macrocrystals 100 mg capsule (Macrobid) Allergies Allergy/AdvReac Type Severity Reaction Status Date / Time codeine [CODEINE] Allergy Unknown ITCHING Verified 01/16/22 20:15 hydromorphone [From DILAUDID] Allergy Unknown CHEST PAIN Verified 01/16/22 20:15 morphine [MORPHINE] Allergy Unknown ITCHING Verified 01/16/22 20:15 sulfamethoxazole Allergy Unknown UNKNOWN Verified 01/16/22 20:15 [From BACTRIM] trimethoprim [From BACTRIM] Allergy Unknown UNKNOWN Verified 01/16/22 20:15 Sulfa (Sulfonamide Allergy Verified 01/16/22 20:15 Antibiotics) [facility] Disclaimer: The information contained in this section may have been updated after the patient was seen, as this information can be updated by other users. Medical History (Updated 12/16/23 @ 14:46 by Christopher Azevedo DO) Urinary tract infection Migraine Asthma Social History Smoking Status: Current every day smoker alcohol intake: never substance use type: denies use current occupational status: other Travel in the last 8 weeks: None household members: family housing: house Other Medical History Have you received the Flu Vaccine for this season: No Have you received the Pneumonia Vaccine: No ROS Obtained: Yes Systems reviewed as appropriate & no additional complaints except as documented Physical Exam General General appearance: alert and in no apparent distress Head Head exam: atraumatic and normocephalic Eye Eye exam: Present normal appearance and EOMI ENT ENT exam: Present normal exam Neck Neck exam: Present normal inspection Chest Chest inspection: Present normal inspection and symmetric chest wall rise; Absent tenderness Respiratory Respiratory exam: Present normal lung sounds bilaterally; Absent respiratory distress Cardiovascular Cardiovascular exam: Present regular rate, normal rhythm and normal heart sounds Abdominal Exam Abdominal exam: Present soft and normal bowel sounds; Absent distention, tenderness or guarding Extremities Exam Extremities exam: Present normal inspection, full ROM and normal capillary refill; Absent tenderness or edema Back Exam Back exam: Present normal inspection Neurological Exam Neurological exam: Present alert and oriented X3 Psychiatric Psychiatric exam: Present normal affect and normal mood Skin Skin exam: Present warm, dry, intact and normal color; Absent rash HEART Score HEART Score HEART Score assessment performed?: Yes History (anamnesis): Slightly suspicious ECG: Normal Age: >65 years Risk factors: 1-2 risk factors Troponin: </= normal limit HEART Score: 3 Critical Care Critical Care Time Critical Care Time: No Medical Decision Making Medical Records Medical records reviewed: Yes I reviewed the patient's medical records. Jeevan Inquiry Pt receiving controlled substance: No Jeevan was queried for this patient: No Vital Signs Vital Signs: 12/16/23 12:32 12/16/23 13:30 12/16/23 14:00 Temperature 98.4 F Temperature Source Oral Pulse Rate 77 74 Pulse Rate [Brachial] 85 Respiratory Rate 16 13 18 Blood Pressure 126/71 124/74 Blood Pressure [Left Arm] 140/87 Blood Pressure Mean [Left Arm] 104 Blood Pressure Source Blood Pressure Source [Left Arm] Automatic Cuff Blood Pressure Position 02 Sat by Pulse Oximetry 96 95 93 L Oxygen Delivery Method Room Air Room Air Room Air 12/16/23 14:46 Temperature 98.7 F Temperature Source Oral Pulse Rate 84 Pulse Rate [Brachial] Respiratory Rate 18 Blood Pressure 129/73 Blood Pressure [Left Arm] Blood Pressure Mean [Left Arm] Blood Pressure Source Automatic Cuff Blood Pressure Source [Left Arm] Blood Pressure Position Supine 02 Sat by Pulse Oximetry Oxygen Delivery Method Room Air Lab Data Labs: Lab Results 12/16/23 12:36: WBC 5.5, RBC 5.38, Hgb 15.1, Hct 45.2, MCV 83.9, MCH 28.1, MCHC 33.5, RDW 15.5, Plt Count 201, MPV 7.3 L, Neut % (Auto) 65.2, Lymph % (Auto) 26.8, [place] % (Auto) 5.1, Eos % (Auto) 2.3, Baso % (Auto) 0.7, Neut # (Auto) 3.6, Lymph # (Auto) 1.5, [place] # (Auto) 0.3, Eos # (Auto) 0.1, Baso # (Auto) 0.0, Sodium 140, Potassium 3.8, Chloride 108 H, Carbon Dioxide 24, Anion Gap 11.8, BUN 11, Creatinine 0.50 L, Estimated Creat Clear 146, Estimated GFR 126, Est GFR ( Amer) 152, Glucose 82, Calcium 9.1, Total Bilirubin 0.6, AST 32, ALT 44, Alkaline Phosphatase 115, Troponin I < 0.01, NT-Pro-B Natriuret Pep < 20.0, Total Protein 7.4, Albumin 4.4, Globulin 3.0, Albumin/Globulin Ratio 1.5, HIV 1&2 Antibody Rapid Nonreactive 12/16/23 14:44: SARS-CoV-2 (PCR) Not detected, Influenza A Untype (PCR) Not detected, Influenza Type B (PCR) Not detected 12/16/23 12:36 12/16/23 12:36 Response Orders (Tests/Meds): ED MEDICATIONS Discontinued Medications Generic Name Dose Route Start Last Admin Trade Name Freq PRN Reason Stop Dose Admin Ibuprofen 600 mg 12/16/23 12:40 12/16/23 13:03 Ibuprofen 600 Mg Tablet PO 12/16/23 12:41 600 mg ONCE ONE Administration ORDERS Category Date Time Status XR chest 2V Stat Exams 12/16/23 12:40 Completed Complete Blood Count Auto Diff Stat Lab 12/16/23 12:36 Completed Comprehensive Metabolic Panel Stat Lab 12/16/23 12:36 Completed HIV (1&2) Antibody Rapid Stat Lab 12/16/23 12:36 Completed Hep C Ab with Reflex to RNA Stat Lab 12/16/23 12:36 Received NT Pro Brain Natriuretic Pep. Stat Lab 12/16/23 12:36 Completed Rapid PCR Covid and Flu A/B Stat Lab 12/16/23 14:44 Completed Troponin I Stat Lab 12/16/23 12:36 Completed ECG Data Tracing #1: Attestation: I reviewed this ECG and interpreted as documented below: ECG Narrative: Normal sinus rhythm, normal axis, normal intervals, no noted ST elevation MDM Narrative Medical Decision Narrative: Patient with history and exam per above presenting for evaluation of shortness of breath, chest tightness Diagnoses considered include ACS, upper respiratory virus, PE?patient low risk Wells score, pneumonia ED workup and treatment included: As above Labs were independently interpreted by me, significant for no significant electrolyte abnormality, negative troponin, BNP negative, no noted leukocytosis, no anemia Imaging was independently visualized and interpreted by me, significant for no noted acute cardiopulmonary process on chest x-ray Please refer to radiology report for full details. My clinical impression at this time is most consistent with upper respiratory virus, viral syndrome. Immediately prior to discharge patient requested COVID- 19 swab, this has been ordered. ED staff will call patient with results. Patient agreeable with this plan. Given instructions to follow-up with primary care provider. Patient to return to ED if symptoms worsen. Patient agreeable. Discharged home in hemodynamically stable vitals I discussed my clinical impression with patient and answered all questions. At this time, the evidence for any other entities in the differential is insufficient to warrant any further testing or ED observation. This was explained to the patient. The patient was advised that persistent or worsening symptoms require further evaluation.
[2023-12-16 14:46] VITALS: BP 129/73; PULSE 84; RESP 18; TEMP 37.1; O2SAT 95
[2023-12-16 14:48] LABS: Coronavirus 19, PCR Not Detected (NotDetected); Influenza A, PCR Not Detected (NotDetected); Influenza B, PCR Not Detected (NotDetected)
[2023-12-17 09:38] LABS: HCV Ab Non Reactive (Non Reactive)
== END 2023-12-16 14:51 | disposition home or self-care (01) ==
PROVIDERS: Emergency Provider Student in an Organized Health Care Education/Training Program
DX: B34.9 Viral infection, unspecified (principal); J06.9 Acute upper respiratory infection, unspecified; R07.89 Other chest pain; R07.9 Chest pain, unspecified; R06.02 Shortness of breath; R53.1 Weakness; R53.83 Other fatigue
CPT/HCPCS: 71046; 80053; 83880; 84484; 85025; 86803; 87389; 87636; 93005; 99284

== ENCOUNTER 2024-01-22 19:20 | Emergency (ER) | payer MEDICARE, SELFPAY ==
--- OUTSIDE RECORDS SUMMARY | 2024-01-22 19:50 | XMS_ITS | Clinical Summary ---
Author Organization [facility] Address [address] [place] [address] Care Team Providers Care Development Planner Name Role Phone Alessandro Trejo MD Primary Care Provider + [phone] Allergies Active Allergy Reactions Criticality Noted Date Comments Sulfamethoxazole-Trimethoprim Other (See Comments) Medium 11/07/2015 pruritus Codeine Nausea Only Medium 11/07/2015 Lisinopril Other (See Comments) Low 11/07/2015 fatigue Acebutolol Hcl Other (See Comments) Low 11/07/2015 fatigue Medications multivitamin with minerals tablet tablet Take 1 tablet by mouth Daily. Active cholecalciferol (VITAMIN D3) 25 MCG (1000 UT) tablet Take 1 tablet by mouth Daily. Active vitamin B-12 (CYANOCOBALAMIN) 100 MCG tablet Take 50 mcg by mouth Daily. Active bisoprolol (ZEBeta) 5 MG tablet Take 1 tablet by mouth Daily. 30 tablet 11 07/27/2021 Active Active Problems Problem Noted Date Diagnosed Date Dizziness 05/10/2022 Palpitations 05/10/2022 Tobacco use 07/27/2021 Nonischemic cardiomyopathy Overview (11/07/2015): 1. 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 Echocardiogram, 2004, revealing mild intra-atrial septal aneurysm, normal valves and ejection fraction of 50% to 55%. b. Echocardiogram, November 2007, Dr. Allison, revealing mild mitral regurgitation, mild tricuspid regurgitation, normal ejection fraction with frequent premature ventricular contractions. No evidence of atrial septal defect. c. Limited 2-dimensional echocardiogram revealing ejection fraction of 25% to 30%. d. Echocardiogram, 06/28/2008: Left ventricular ejection fraction of 40% to 45% with mild mitral regurgitation and mild tricuspid regurgitation. e. Echocardiogram, 09/30/2008: Left ventricular ejection fraction of 40% to 45% with trace mitral regurgitation and trace tricuspid regurgitation. f. Stress echocardiogram 02/06/2010: Expected exercise duration of 8 minutes and 30 seconds with an actual duration of 6 minutes and 20 seconds. Normal left ventricular systolic function and wall motion. g. Echocardiogram 04/07/2013: LVEF 55% to 60% with trace MR, trace TR. Lower extremity edema Carcinoma of right breast Overview (11/07/2015): 1. Right breast carcinoma: a. Diagnosis by abnormal mammogram. b. Mastectomy, 02/05/2009. c. 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 Thoracic outlet syndrome Family History * Patient is adopted Medical History Relation Name Comments Cancer Father Breast cancer Maternal Aunt 1 40'S Ovarian cancer Maternal Aunt 2 40'S Arrhythmia Mother Relation Name Status Comments Brother Alive Father Maternal Aunt 1 Maternal Aunt 2 Mother Social History Tobacco Use Types Packs/Day Years Used Date Smoking Tobacco: Every Day Cigarettes Smokeless Tobacco: Never Alcohol Use Standard Drinks/Week Comments No 0 (1 standard drink = 0.6 oz pur e alcohol) Abuse Screen Answer Date Recorded Unsafe at Home or Work/School Not on file Feels Threatened by Someone? Not on file 10/2022 Does Anyone Keep You from Co ntacting Others or Doint Things Outside the Home? Not on file 11/26/2022 Physical Sign of Abuse Present Not on file 1 Housing Stability Answer Date Recorded Current Living Arrangements Not on file 10/2022 Potentially Unsafe Housing Conditions Not on juan e 11/26/2022 Family and Community Support Answer Nicola e Recorded Help with Day-to-Day Activities Not on file 11/26/2022 Lonely or Isolated Not on file 11/26/2022 Employment Answer Date Recorded Do you want help finding or keeping work or a keagan b? Not on file 11/26/2022 Disabilities Answer Date Recorded Concentrating, Remembering, or Making Decisions Difficulty Not on file 11/26/2022 Doing Errands Independently Difficulty Not on fi le 11/26/2022 Education Answer Date Recorded Help with school or training? Not on file Preferred Language Not on file 11/26/2022 Comments No Sex and Gender Information Value Date Recorded Sex Assigned at Not on file Legal Sex Female 10:15 AM EDT Gender Identity Not on file Sexual Orientation Not on file Last Filed Vital Signs Vital Sign Reading Time Taken Comments Blood Pressure 140/92 06/07/2022 9:07 AM EDT Pulse 105 05/10/2022 10:08 AM EDT Temperature - - Respiratory Rate - - Oxygen Saturation 95% 05/10/2022 10: 08 AM EDT Inhaled Oxygen Concentration - - Weight 80.6 kg (177 lb 11.1 oz) 06/07/2022 9:07 AM EDT Height 166.4 cm (5' 5.51 ) 06/07/2022 9:07 AM ED T Body Mass Index 29.11 06/07/2022 9:07 AM EDT Plan of Treatment Health Maintenance Due Date Last Done Comments Annual Gynecologic Pelvic an d Breast Exam 1965 COLOGUARD 1965 COLON CANCER SCREENING 5 YEA R SIGMOIDOSCOPY 1963 COLONOSCOPY 1963 COLORECTAL CANCER SCREENING 1963 CT COLONOGRAPHY 1963 FECAL OCCULT BLOOD TEST 1963 FIT Testing (1 year) 1965 Pneumococcal Vaccine 0-64 (1 of 2 - PCV) 10/08/1969 ZOSTER VACCINE (1 of 2) 10/08/2013 ANNUAL WELLNESS VISIT 09/11/2017 HEPATITIS C SCREENING 09/11/2017 PAP SMEAR 09/11/2017 MAMMOGRAM 11/15/2022 11/15/2020, 09/19, 06/06/2016 INFLUENZA VACCINE 08/19/2023 COVID-19 Vaccine ( season) 2023 TDAP/TD VACCINES (3 - Td or Tdap) 07/02/2031 022, 10/15/2017 Procedures Procedure Name Priority Date/Time Associated Diagnosis Comments MAMMO DIAGNOSTIC DIGITAL TOMOSYNTHESIS LEFT W CAD Routine 11/15/2020 2:08 PM EDT Abnormal mammogram from Last 3 Months or Most Recently Relevant to Health Maintenance Results * (ABNORMAL) Mammo Diagnostic Digital Tomosynthesis Left With CAD (11/15/2020 2:08 PM EDT) Anatomical Region Laterality Modality Breast Left Mammography 11/15/2020 3:01 PM EDT Impressions 11/15/2020 4:11 PM EDT 1. Persistent 0.6 cm mass in the left lower outer quadrant periareolar region. This correlates to a 0.6 cm mass sonographically. This could represent an area of fibrocystic change but does appear new or increased on the mammogram and therefore further evaluation with ultrasound-guided core biopsy is recommended. 2. 0.5 cm mass in the left 3:00 position is felt to correlate to a small cyst on ultrasound imaging. RECOMMENDATION: ??Recommend ultrasound-guided core biopsy of a 0.6 cm mass in the left 4:00 position as described above. ACR BI-RADS CATEGORY: ??4, SUSPICIOUS. CAD was utilized. The standard false-negative rate of mammography is between 10% and 25%. Complex patterns or increased breast density will markedly elevate the false-negative rate of mammography. ?? A letter, in lay terminology, with the results of this exam was given to the patient at the time of the visit. At our facility, a triangular marker is positioned over a palpable area of concern indicated by the patient. A [place] marker is placed over a visible skin lesion. A linear marker indicates a scar. Physician Order Ultrasound Guided Breast Biopsy Diagnosis: Abnormal Mammogram This report was finalized on 11/15/2020 4:[address] Anuradha Wood MD. Narrative 11/15/2020 4:11 PM EDT LEFT DIAGNOSTIC MAMMOGRAM WITH TOMOSYNTHESIS AND A LEFT BREAST ULTRASOUND: CLINICAL INDICATION: ??55-year-old patient recalled from screening study done on 10/13/2020 for further evaluation of the left breast. TECHNIQUE: Left MLO focal compression views were performed as well as a left ML view with tomosynthesis. Also, ultrasound imaging of the left breast was performed. COMPARISON: 10/13/2020, 06/06/2016, 06/10/2014, 12/09/2013, 06/09/2013. FINDINGS: ??There is a persistent mildly lobulated isodense mass with partially obscured borders present in the anterior-inferior breast. This is not as well seen on the CC projection but appears to be located slightly laterally based on the tomographic views. It measures approximately 0.6 cm in size. There is also a persistent oval isodense mass with partially obscured borders in the mid approximately 3:00 position measuring approximately 0.5 cm in size. No spiculated masses or areas of architectural distortion are seen. Ultrasound imaging of the left breast was also performed for further evaluation. Located in the 3:00 position, 4 cm from the nipple, is a 0.5 cm cyst. This is felt to correlate to the mammographic mass in this region. Located in the 4:00 position, 2 cm from the nipple, is an oval slightly hypoechoic mass with circumscribed borders measuring 0.6 cm in size. This is felt to correlate to the mass noted on the mammogram. Anabel Meier MD IMG MAMMOGRAPHY ORDERABLES Fi nal Result from Last 3 Months or Most Recently Relevant to Health Maintenance Insurance Care Teams Development Planner Relationship Specialty Start Date End Date Alessandro Trejo MD PCP - General 10/12/14
--- OUTSIDE RECORDS SUMMARY | 2024-01-22 19:50 | XMS_ITS | Encounter Summary ---
[facility] Address [address] [place] [address] Care Team Providers Care Parent Partner Name Role Phone Alessandro Trejo MD Primary Care Provider + [phone] Encounter Details Date Type Department Care Team (Late st Contact Info) Description 06/14/2022 Documentation [facility] [address] [facility] [address] [place] [address] Ivette Collins, STEPHAN [address] [facility] [address] [place] [address] Social History Tobacco Use Types Packs/Day Years Used Date Smoking Tobacco: Every Day Cigarettes Smokeless Tobacco: Never Alcohol Use Standard Drinks/Week Comments No 0 (1 standard drink = 0.6 oz pur e alcohol) Comments No Sex and Gender Information Value Date Recorded Sex Assigned at Not on file Legal Sex Female 10:15 AM EDT Gender Identity Not on file Sexual Orientation Not on file documented as of this encounter Progress Notes * Ivette Collins APRN - 06/14/2022 10:56 AM EDT I contacted Anuradha to let her know her echocardiogram was within normal limits. She wore a 2-week monitor and says it is in her car and she is forgot to mail it back in. She did wear it for a little over a week but had a reaction to the patches. She said she had 1 spell while wearing it. She has not had any further spells since. We will contact her once we know the results of the monitor. Ivette Collins APRN documented in this encounter Plan of Treatment Not on file documented as of this encounter Visit Diagnoses Not on filedocumented in this encounter Additional Health Concerns Infection Onset Date Last Indicated Resolved Time COVID Screen (preop/placement) 06/15/2021 07/10/2021 04/11/2023 12:11 PM EST documented as of this encounter Care Teams Parent Partner Relationship Specialty Start Date End Date Alessandro Trejo MD PCP - General 10/12/14 documented as of this encounter
--- OUTSIDE RECORDS SUMMARY | 2024-01-22 19:51 | XMS_ITS | Encounter Summary ---
[facility] Address [address] [place] [address] Care Team Providers Care Folder Machine Adjuster Name Role Phone Alessandro Trejo MD Primary Care Provider + [phone] Encounter Details Date Type Department Care Team (Late st Contact Info) Description 12/21/2021 Telephone [facility] [address] [place] [phone] Connie Mondragon Social History Tobacco Use Types Packs/Day Years [...] on file documented as of this encounter Miscellaneous Notes * Telephone Encounter - Connie Mondragon - 12/21/2021 11:19 AM EDTSummary: Genetic Counseling Patient failed to keep her scheduled/confrimed appointment today with the Genetic Counselor. Reached out to the patient this morning but was unable to leave a message since the voice mail was full. Of note, the patient also no showed her genetic appointment in Mar 2021. documented in this encounter Plan of Treatment Not on file documented as of this encounter Visit Diagnoses Not on filedocumented in this encounter Additional Health Concerns Infection Onset Date Last Indicated Resolved Time COVID Screen (preop/placement) 06/15/2021 07/10/2021 04/11/2023 12:11 PM EST documented as of this encounter Care Teams Folder Machine Adjuster Relationship Specialty Start Date End Date Alessandro Trejo MD PCP - General 10/12/14 documented as of this encounter
--- OUTSIDE RECORDS SUMMARY | 2024-01-22 19:51 | XMS_ITS | Encounter Summary ---
Author Organization [facility] Address [address] [place] [address] Care Team Providers Care Make Up Operator Helper Name Role Phone Alessandro Trejo MD Primary Care Provider + [phone] Reason for Referral * (Routine) - Closed Specialty Diagnoses / Procedures Referred By Tonie leigh Referred To Contact Radiology Diagnoses Benign mammary dysplasia, unspecified laterality Family history of malignant neoplasm of breast Personal history of malignant neoplasm of breast Procedures Mammo Post Clip Placement Left Fariba Wood MD Phone: tel: fax: Referral ID Status Reason Start Date Expiration Date Visits Re quested Visits Authorized [id number] Closed 07/12/2021 07/12/2022 1 1 Reason for Visit * (Routine) - Closed Specialty Diagnoses / Procedures Referred By Tonie leigh Referred To Contact Radiology Diagnoses Benign mammary dysplasia, unspecified laterality Family history of malignant neoplasm of breast Personal history of malignant neoplasm of breast Procedures Mammo Post Clip Placement Left Fariba Wood MD Phone: tel: fax: Referral ID Status Reason Start Date Expiration Date Visits Re quested Visits Authorized [id number] Closed 07/12/2021 07/12/2022 1 1 Encounter Details Date Type Department Care Team (Latest Contact Info) Description 07/12/2021 8:21 AM EDT - 07/12/2021 11:59 PM EDT Hospital Encounter [facility] [address] [place] [phone] Benign mammary dysplasia, unspecified laterality; Family history of malignant neoplasm of breast; Personal history of malignant neoplasm of breast Discharge Disposition: Home or Self Care Social History Tobacco Use Types Packs/Day Years [...] on file documented as of this encounter Medications at Time of Discharge bisoprolol (ZEBeta) 5 MG tabletIndications:No nischemic cardiomyopathy take 1 tablet by mouth once daily 90 tablet 12/11/2016 2 HYDROcodone-acetamin ophen (NORCO) 5-325 MG per tablet Take 1 tablet by mouth Every 8 (Eight) Hours As Needed. 6 tablet 07/12/2021 1:25 PM EDT 07/12/2021 2 triamterene-hydrochl orothiazide (MAXZIDE-25) 37.5-25 MG per tabletIndications:No nischemic cardiomyopathy TAKE 1 TABLET BY MOUTH DAILY 90 tablet 12/11/2016 2 documented as of this encounter Plan of Treatment Not on file documented as of this encounter Procedures Procedure Name Priority Date/Time Associated Diagnosis Comments MAMMO POST DEVICE PLACEMENT LEFT Routine 07/12/2021 9:56 AM EDT Benign mammary dysplasia, unspecified laterality Family history of malignant neoplasm of breast Personal history of malignant neoplasm of breast documented in this encounter Results * Mammo Post Clip Placement Left (07/12/2021 9:56 AM EDT) Anatomical Region Laterality Modality Breast Left Mammography 07/18/2021 11:5 0 AM EDT Narrative 07/18/2021 3:39 PM EDT STEREOTACTIC NEEDLE LOCALIZATION: LEFT BREAST (2 SITES) WITH SPECIMEN RADIOGRAPH AND POST WIRE DIAGNOSTIC LEFT MAMMOGRAM HISTORY: ??2 sites of atypia in the left anterior central breast for needle localization and excision PROCEDURE: After obtaining informed consent and performing time out the patient was placed on the stereotactic biopsy table. The left breast was prepped and draped in the usual sterile fashion. A reverse CC approach was taken for placement of 2 9 cm Kopans needle. The needles were placed to the appropriate depth adjacent to the postbiopsy marking clips located in the 4:00 position and the clip located just medial to the 4:00 clip and approximately the 5:30 to 6:00 position placed following MRI guided biopsy. A wires were placed through the needles and the needles were removed from the breast. ??Stereotactic images demonstrated the postbiopsy marking clip to be located at the distal thick portion of each wire. Full size CC, and ML digital mammographic images were then obtained. These images confirmed the clip to to be located at the distal thick portions of each wire to CM from the inferior skin edge. The patient tolerated the procedure well. No immediate complications occurred. The patient was transferred to the operating room along with her mammographic images. SPECIMEN RADIOGRAPH: Specimen radiograph revealed the wires, clips, and tissue of concern within the specimen radiograph. SUMMARY: Successful stereotactic needle localization of a post biopsy marking clips located in the inferior central left breast.. Dr. Wood will perform the surgical procedure. PATHOLOGY: Prior biopsy sites identified. Fibrocystic changes with fibrosis, focal sclerosing adenosis, small cyst formation, and usual type ductal hyperplasia. Calcifications present associated with fibrocystic change. Focal atypical lobular hyperplasia. Micropapilloma. No invasive or in situ carcinoma identified. Findings are concordant. The patient is being followed by [facility]. This report was finalized on 07/18/2021 3:[address] Anabel Meier MD. Anabel Meier MD IMG MAMMOGRAPHY ORDERABLES Fi nal Result documented in this encounter Visit Diagnoses Diagnosis Benign mammary dysplasia, unspecified laterality Family history of malignant neoplasm of breast Personal history of malignant neoplasm of breast documented in this encounter Additional Health Concerns Infection Onset Date Last Indicated Resolved Time COVID Screen (preop/placement) 06/15/2021 07/10/2021 04/11/2023 12:11 PM EST documented as of this encounter Care Teams Make Up Operator Helper Relationship Specialty Start Date End Date Alessandro Trejo MD PCP - General 10/12/14 documented as of this encounter
--- OUTSIDE RECORDS SUMMARY | 2024-01-22 19:51 | XMS_ITS | Encounter Summary ---
[facility] Address [address] [place] [address] Care Team Providers Care Conservation Or Heritage Architect Name Role Phone Alessandro Trejo MD Primary Care Provider + [phone] Encounter Details Date Type Department Care Team (Late st Contact Info) Description 06/05/2021 Telephone [place] [id number] Opal Brock, RN MSN Social History Tobacco Use Types Packs/Day Years [...] encounter Miscellaneous Notes * Telephone Encounter - pOal Brock RN MSN - 06/05/2021 10:56 AM EDT Patient notified of pathology results and recommendations. Verbalizes understanding. Denies discomfort. Denies signs and symptoms of infection. Patient desires Dr DANITA Wood for surgical consult. Patient previously made appointment on 06.08.21 @ [phone]. Patient verbalized understanding. documented in this encounter Plan of Treatment Not on file documented as of this encounter Visit Diagnoses Not on filedocumented in this encounter Care Teams Conservation Or Heritage Architect Relationship Specialty Start Date End Date Alessandro Trejo MD PCP - General 10/12/14 documented as of this encounter
--- OUTSIDE RECORDS SUMMARY | 2024-01-22 19:51 | XMS_ITS | Encounter Summary ---
[facility] Address [address] [place] [address] Care Team Providers Care Residential Carpet Installer Name Role Phone Alessandro Trejo MD Primary Care Provider + [phone] Encounter Details Date Type Department Care Team (Late st Contact Info) Description 12/26/[address] [place] [address] Pippa Chamberlain RN Social History Tobacco Use Types Packs/Day Years [...] encounter Miscellaneous Notes * Telephone Encounter - Pippa Chamberlain RN - 12/26/2020 10:02 AM EST Attempted to notify patient of surgical consult appointment with Dr. DANITA Wood. Left message for patient to return my call. documented in this encounter Plan of Treatment Not on file documented as of this encounter Visit Diagnoses Not on filedocumented in this encounter Care Teams Residential Carpet Installer Relationship Specialty Start Date End Date Alessandro Trejo MD PCP - General 10/12/14 documented as of this encounter
--- OUTSIDE RECORDS SUMMARY | 2024-01-22 19:51 | XMS_ITS | Encounter Summary ---
[facility] Address [address] [place] [address] Care Team Providers Care Rock Picker Name Role Phone Alessandro Trejo MD Primary Care Provider + [phone] Encounter Details Date Type Department Care Team (Late st Contact Info) Description 01/19/2021 Telephone [facility] [address] [phone] Jody Dean Social History Tobacco Use Types Packs/Day Years [...] encounter Miscellaneous Notes * Telephone Encounter - Jody Dean - 01/19/2021 3:50 PM ESTSummary: Second look ultrasound breast appointment confirmed Confirmed the date and time for the second look ultrasound with possible biopsy of the breast wouldwork for patient. 02/07/21 at 10:00 she is available for this appointment time. She confirmed that she is not on blood thinners. I passed this information along to Sherrie Nagel. documented in this encounter Plan of Treatment Not on file documented as of this encounter Visit Diagnoses Not on filedocumented in this encounter Care Teams Rock Picker Relationship Specialty Start Date End Date Alessandro Trejo MD PCP - General 10/12/14 documented as of this encounter
--- OUTSIDE RECORDS SUMMARY | 2024-01-22 19:51 | XMS_ITS | Encounter Summary ---
[facility] Organization [facility] Address [address] [place] [address] Care Team Providers Care Senior Manager Asset Protection Name Role Phone Alessandro Trejo MD Primary Care Provider + [phone] Encounter Details Date Type Department Care Team (Late st Contact Info) Description 03/20/2021 Telephone [facility] [address] [phone] Mine Welsh Social History Tobacco Use Types Packs/Day Years [...] encounter Miscellaneous Notes * Telephone Encounter - Mine Welsh - 03/20/2021 1:11 PM EST Called patient with MRI Breast biopsy reschedule date of 2021 at 8:00. Pt had cancelled previously due to Covid. Pt not on BT. Pt expressed understanding and was encouraged to call with any further questions or concerns. documented in this encounter Plan of Treatment Not on file documented as of this encounter Visit Diagnoses Not on filedocumented in this encounter Care Teams Senior Manager Asset Protection Relationship Specialty Start Date End Date Alessandro Trejo MD PCP - General 10/12/14 documented as of this encounter
--- OUTSIDE RECORDS SUMMARY | 2024-01-22 19:51 | XMS_ITS | Encounter Summary ---
[facility] Address [address] [place] [address] Care Team Providers Care Satellite Installation Technician Name Role Phone Alessandro Trejo MD Primary Care Provider + [phone] Reason for Referral * Diagnostic Imaging (Routine) - Closed Specialty Diagnoses / Procedures Referred By Contac t Referred To Contact Radiology Diagnoses Postmenopausal Procedures DEXA Bone Density Axial Abhay Velasquez MD [address] [place] [address] Phone: tel: fax: [place] [address] Phone: tel: Referral ID Status Reason Start Date Expiration Date Visits Re quested Visits Authorized [id number] Closed 10/10/2021 10/10/2022 1 1 Reason for Visit * Diagnostic Imaging (Routine) - Closed Specialty Diagnoses / Procedures Referred By Contac t Referred To Contact Radiology Diagnoses Postmenopausal Procedures DEXA Bone Density Axial Abhay Velasquez MD [address] [place] [address] Phone: tel: fax: [address] [address] Phone: tel: Referral ID Status Reason Start Date Expiration Date Visits Re quested Visits Authorized [id number] Closed 10/10/2021 10/10/2022 1 1 Encounter Details Date Type Department Care Team (Latest Contact Info) Description 12/18/2021 11:00 AM EDT - 12/18/2021 11:59 PM EDT Hospital Encounter [facility] [address] [place] [address] Abhay Velasquez MD [address] [place] [address] Postmenopausal Discharge Disposition: Home or Self Care Social [...] Time of Discharge bisoprolol (ZEBeta) 5 MG tablet Take 1 tablet by mouth Daily. 30 tablet 11 07/27/2021 cholecalciferol (VITAMIN D3) 25 MCG (1000 UT) tablet Take 1 tablet by mouth Daily. multivitamin with minerals tablet tablet Take 1 tablet by mouth Daily. vitamin B-12 (CYANOCOBALAMIN) 100 MCG tablet Take 50 mcg by mouth Daily. documented as of this encounter Plan of Treatment Not on file documented as of this encounter Procedures Procedure Name Priority Date/Time Associated Diagnosis Comments DEXA BONE DENSITY AXIAL Routine 12/18/2021 11:41 AM EDT Postmenopausal documented in this encounter Results * DEXA Bone Density Axial (12/18/2021 11:41 AM EDT) Anatomical Region Laterality Modality Wrist, Hip, L-spine N/A Other 12/18/2021 3:35 PM EDT Impressions 12/18/2021 4:17 PM EDT Bone mineral density results are within normal limits. The ten year fracture risk assessment was not calculated because all T scores were at or above -1.0. All the treatment decisions require clinical judgment and consideration of individual patient factors, including patient preferences, co-morbidities, previous drug use, risk factors not captured in the FRAX model (frailty, falls, vitamin D deficiency, increased bone turnover, interval significant decline in bone density) and possible under or over estimation of fracture risk by FRAX. Approaches to reduce osteoporosis related fracture risk include optimizing calcium and vitamin D status, appropriate weight bearing exercises and fall-prevention measurements. The National Osteoporosis Foundation recommends (http://www.nof.org/hcp/practice/gncvlsvj-nip-trvcrpdn-guidelines/clinic ans-guide) that FDA-approved medical therapies be considered in postmenopausal women and men aged equal or greater than 50 years with : a) hip or vertebral (clinical or morphometric) fracture; b) T-score of -2.5 or less at the spine or hip; c) Ten-year fracture probability by FRAX of greater than 3% for hip fracture of greater than 20% for major osteoporotic fracture. ?? Secondary causes of bone loss should be evaluated if clinically indicated since the etiology of low BMD cannot be determined by BMD measurement alone. FOLLOWUP: Consider repeating the study in 2-3 years to reassess the patient's status or sooner if there is some new clinical indication. INTERVAL CHANGE: ?? There were no equivalent studies available for comparison. ?? At this facility, the least significant change in the BMD at the left hip with 95% confidence is 0.495566 gm/cm2 at the hip and 0.192579 g/cm2 at the lumbar spine. This report was finalized on 12/18/2021 4:17 PM by Eliezer Murillo MD. Narrative 12/18/2021 4:17 PM EDT DUAL-ENERGY X-RAY ABSORPTIOMETRY (DXA) INDICATION: ??Postmenopausal, screening for osteoporosis, history of glucocorticoids, cancer, asthma or emphysema COMPARISON: There are no equivalent studies available for comparison PROCEDURE: A DXA scan was performed using a Hologic densitometer. The lumbar spine L1-L4 was evaluated as well as bilateral total hip. The T-score compares the patient's bone mineral density with the peak bone mass of young normal patients. ??According to criteria established by the World Health Organization, patients with T-scores ??between 1.0 and 2.5 standard deviations BELOW the mean are osteopenic (low bone mass). ??Patients with T-scores EQUAL TO OR GREATER than 2.5 standard deviations below the mean are osteoporotic. The Z-score compares the patient bone mineral density with age and sex matched peers. ??According to the International Society for Clinical Densitometry's 2007 consensus conference: ??In women prior to menopause and men less than age 50, Z-scores, not T-scores are preferred. ??A Z-score of -2.0 or lower is defined as below the expected range for age and a Z-score above -2.0 is within the expected range for age. The WHO diagnostic criteria may be applied in women in the menopausal transition. ??Osteoporosis cannot be diagnosed in men under age 50 on the basis of BMD alone. TECHNICAL QUALITY: ??The study is of good technical quality. RESULTS: Lumbar Spine: ??The BMD measured in the L1-L4 region is 1.043 g/cm2. ??The average T-score is 0.0. ??The Z-score is 1.2. Total Hip: ??The BMD measured at the left total proximal femur is 0.971 g/cm2. ??The T-score is 0.2. ??The Z-score is 1.1. Femoral Neck: ??The BMD measured at the left femoral neck is 0.785 g/cm2. The T-score is -0.6. ??The Z-score is 0.6. Total Hip: ??The BMD measured at the right total proximal femur is 0.950 g/cm2. ??The T-score is 0.1. ??The Z-score is 0.9. Femoral neck: The BMD measured at the right femoral neck is 0.779 g/cm2. The T score is -0.6. The Z score is 0.6. Procedure Note Dee Sifuentes PA - 12/18/2021 DUAL-ENERGY X-RAY ABSORPTIOMETRY (DXA) INDICATION: Postmenopausal, screening for osteoporosis, history of glucocorticoids, cancer, asthma or emphysema COMPARISON: There are no equivalent studies available for comparison PROCEDURE: A DXA scan was performed using a Hologic densitometer. The lumbar spine L1-L4 was evaluated as well as bilateral total hip. The T-score compares the patient's bone mineral density with the peak bone mass of young normal patients. According to criteria established by the World Health Organization, patients with T-scores between 1.0 and 2.5 standard deviations BELOW the mean are osteopenic (low bone mass). Patients with T-scores EQUAL TO OR GREATER than 2.5 standard deviations below the mean are osteoporotic. The Z-score compares the patient bone mineral density with age and sex matched peers. According to the International Society for Clinical Densitometry's 2007 consensus conference: In women prior to menopause and men less than age 50, Z-scores, not T-scores are preferred. A Z-score of -2.0 or lower is defined as below the expected range for age and a Z-score above -2.0 is within the expected range for age. The WHO diagnostic criteria may be applied in women in the menopausal transition. Osteoporosis cannot be diagnosed in men under age 50 on the basis of BMD alone. TECHNICAL QUALITY: The study is of good technical quality. RESULTS: Lumbar Spine: The BMD measured in the L1-L4 region is 1.043 g/cm2. The average T-score is 0.0. The Z-score is 1.2. Total Hip: The BMD measured at the left total proximal femur is 0.971 g/cm2. The T-score is 0.2. The Z-score is 1.1. Femoral Neck: The BMD measured at the left femoral neck is 0.785 g/cm2. The T-score is -0.6. The Z-score is 0.6. Total Hip: The BMD measured at the right total proximal femur is 0.950 g/cm2. The T-score is 0.1. The Z-score is 0.9. Femoral neck: The BMD measured at the right femoral neck is 0.779 g/cm2. The T score is -0.6. The Z score is 0.6. IMPRESSION: Bone mineral density results are within normal limits. The ten year fracture risk assessment was not calculated because all T scores were at or above -1.0. All the treatment decisions require clinical judgment and consideration of individual patient factors, including patient preferences, co-morbidities, previous drug use, risk factors not captured in the FRAX model (frailty, falls, vitamin D deficiency, increased bone turnover, interval significant decline in bone density) and possible under or over estimation of fracture risk by FRAX. Approaches to reduce osteoporosis related fracture risk include optimizing calcium and vitamin D status, appropriate weight bearing exercises and fall-prevention measurements. The National Osteoporosis Foundation recommends (http://www.nof.org/hcp/practice/hzuoniuu-xun-qfkyziiu-guidelines/clinic ans-guide) that FDA-approved medical therapies be considered in postmenopausal women and men aged equal or greater than 50 years with : a) hip or vertebral (clinical or morphometric) fracture; b) T-score of -2.5 or less at the spine or hip; c) Ten-year fracture probability by FRAX of greater than 3% for hip fracture of greater than 20% for major osteoporotic fracture. Secondary causes of bone loss should be evaluated if clinically indicated since the etiology of low BMD cannot be determined by BMD measurement alone. FOLLOWUP: Consider repeating the study in 2-3 years to reassess the patient's status or sooner if there is some new clinical indication. INTERVAL CHANGE: There were no equivalent studies available for comparison. At this facility, the least significant change in the BMD at the left hip with 95% confidence is 0.791017 gm/cm2 at the hip and 0.857767 g/cm2 at the lumbar spine. This report was finalized on 12/18/2021 4:17 PM by Eliezer Murillo MD. Abhay Velasquez MD IMG DXA ORDERABLES Final Res ult documented in this encounter Visit Diagnoses Diagnosis Postmenopausal Asymptomatic postmenopausal status (age-related) (natural) documented in this encounter Additional Health Concerns Infection Onset Date Last Indicated Resolved Time COVID Screen (preop/placement) 06/15/2021 07/10/2021 04/11/2023 12:11 PM EST documented as of this encounter Care Teams Satellite Installation Technician Relationship Specialty Start Date End Date Alessandro Trejo MD PCP - General 10/12/14 documented as of this encounter
--- OUTSIDE RECORDS SUMMARY | 2024-01-22 19:51 | XMS_ITS | Encounter Summary ---
[facility] [address] [place] [address] Care Team Providers Care Skein Tier Name Role Phone Alessandro Trejo MD Primary Care Provider + [phone] Encounter Details Date Type Department Care Team (Late st Contact Info) Description 03/03/2021 Telephone [facility] MRI AT [address] [phone] Mine Welsh Social History Tobacco [...] * Telephone Encounter - Mine Welsh - 03/03/2021 8:36 AM EST Called pt to move her MRI Biopsy to Mar [address] Meier being out of town. Pt understood. documented in this encounter Plan of Treatment Not on file documented as of this encounter Visit Diagnoses Not on filedocumented in this encounter Care Teams Skein Tier Relationship Specialty Start Date End Date Alessandro Trejo MD PCP - General 10/12/14 documented as of this encounter
--- OUTSIDE RECORDS SUMMARY | 2024-01-22 19:51 | XMS_ITS | Encounter Summary ---
Author Organization [facility] Address [address] [place] [address] Care Team Providers Care Material Control Associate Name Role Phone Alessandro Trejo MD Primary Care Provider + [phone] Encounter Details Date Type Department Care Team (Late st Contact Info) Description 07/26/2021 Documentation [facility] [address] [facility] [address] [place] [address] Cindy Allison MD [address] [facility] [address] [place] [address] Social History Tobacco Use Types Packs/Day Years [...] as of this encounter Progress Notes * Rose Mary Fragoso RN - 07/26/2021 10:55 AM EDT [facility] 2016- epic [place] ??- requested recs [place]- recs under media pcp under media- requested lipid Echo under media Lm on vm to call back to confirm appt documented in this encounter Plan of Treatment Not on file documented as of this encounter Visit Diagnoses Not on filedocumented in this encounter Additional Health Concerns Infection Onset Date Last Indicated Resolved Time COVID Screen (preop/placement) 06/15/2021 07/10/2021 04/11/2023 12:11 PM EST documented as of this encounter Care Teams Material Control Associate Relationship Specialty Start Date End Date Alessandro Trejo MD PCP - General 10/12/14 documented as of this encounter
--- OUTSIDE RECORDS SUMMARY | 2024-01-22 19:51 | XMS_ITS | Encounter Summary ---
Author Organization [facility] Address [address] [place] [address] Care Team Providers Care Hydraulic And Plumbing Installer Name Role Phone Alessandro Trejo MD Primary Care Provider + [phone] Reason for Visit * Diagnostic Imaging (Routine) - Closed Specialty Diagnoses / Procedures Referred By Contac t Referred To Contact Radiology Diagnoses Abnormal mammogram Procedures US Breast Bilateral Limited US Guided Breast Biopsy With & Without Device initial Fariba Wood MD Phone: tel: fax: Referral ID Status Reason Start Date Expiration Date Visits Re quested Visits Authorized [id number] Closed 01/19/2021 01/19/2022 1 1 Encounter Details Date Type Department Care Team (Latest Contact Info) Description 02/07/2021 10:00 AM EST - 02/07/2021 11:59 PM [facility] Hospital Encounter [facility] [address] [facility] [address] [place] [address] Anabel Meier MD [address] [facility] [address] [place] [address] Abnormal mammogram Discharge Disposition: Home or Self Care Social [...] mouth once daily 90 tablet 12/11/2016 2 triamterene-hydrochl orothiazide (MAXZIDE-25) 37.5-25 MG per tabletIndications:No nischemic cardiomyopathy TAKE 1 TABLET BY MOUTH DAILY 90 tablet 12/11/2016 2 documented as of this encounter Plan of Treatment Not on file documented as of this encounter Procedures Procedure Name Priority Date/Time Associated Diagnosis Comments US BREAST BILATERAL LIMITED Routine 02/07/2021 11:47 AM EST Abnormal mammogram documented in this encounter Results * (ABNORMAL) US Breast Bilateral Limited (02/07/2021 11:47 AM EST) Anatomical Region Laterality Modality Breast Bilateral Ultrasound 02/07/2021 11:4 6 AM EST Impressions 02/07/2021 11:54 AM EST Concerning lymph node in the right axilla. No definite sonographic correlate to the MRI area of concern in the subareolar region on the left. BI-RADS CATEGORY: ??4, SUSPICIOUS RECOMMENDATION: ??Ultrasound-guided fine-needle aspiration of the right axillary lymph node to be sent for flow cytometry and cytology. Attempt at MRI guided biopsy of the subareolar dominant focus as no definite correlate is seen sonographically. This would be a difficult MRI guided biopsy given the location and inability to compress, but attempt is recommended. A letter, in lay terminology, with the results of this exam was given to the patient at the time of the visit. This report was finalized on 02/07/2021 11:[address] Anabel Meier MD. Narrative 02/07/2021 11:54 AM EST BILATERAL BREAST ULTRASOUND CLINICAL INDICATION: ??Recent left 4:00 ultrasound-guided biopsy on 12/20/2020 revealing at least atypical ductal hyperplasia. The patient has a history of a right mastectomy in 2010 for invasive ductal carcinoma. Preoperative MRI on 01/18/2021 revealed a prominent level 1 axillary lymph node on the RIGHT as as well as a 6 mm subareolar dominant focus of enhancement on the LEFT. TECHNIQUE: ??Images of the area of concern at the right axilla and left subareolar region were obtained in both sagittal and transverse planes. COMPARISON: Prior sonography, most recently 12/20/2020 and 11/15/2020. Prior MRI 01/18/2021 and MRI from 05/18/2010 FINDINGS: ??The lymph node in the right axilla, noted on MRI retains a fatty hilum. However there is cortical thickening up to 1 cm. Given the history of breast cancer on the right in 2009, ultrasound-guided fine-needle aspiration is recommended to be sent for cytology and flow cytometry. On the left the area previously biopsied at the 4:00 position was labeled at the 5:30 position today. The clip was able to be seen within this mass from the previous biopsy. A definite mass in the immediate subareolar region to correlate with the dominant focus seen by MRI is not visualized sonographically. us Anabel Meier MD IMG US ORDERABLES Final Resul t documented in this encounter Visit Diagnoses Diagnosis Abnormal mammogram Abnormal mammogram, unspecified documented in this encounter Care Teams Hydraulic And Plumbing Installer Relationship Specialty Start Date End Date Alessandro Trejo MD PCP - General 10/12/14 documented as of this encounter
--- OUTSIDE RECORDS SUMMARY | 2024-01-22 19:51 | XMS_ITS | Encounter Summary ---
[facility] Organization [facility] Address [address] [place] [address] Care Team Providers Care Mortgage Loan Officer Originator Name Role Phone Alessandro Trejo MD Primary Care Provider + [phone] Encounter Details Date Type Department Care Team (Late st Contact Info) Description 05/10/2022 11:40 AM EDT Lab [facility] [address] [place] [phone] Healthcare maintenance; Nonischemic cardiomyopathy Social History Tobacco Use Types Packs/Day Years [...] on file documented as of this encounter Plan of Treatment Not on file documented as of this encounter Procedures Procedure Name Priority Date/Time Associated Diagnosis Comments CBC WITH AUTO DIFFERENTIAL Routine 05/10/2022 11:09 AM EDT Nonischemic cardiomyopathy CBC AND DIFFERENTIAL Routine 05/10/2022 11:09 AM EDT Nonischemic cardiomyopathy TSH Routine 05/10/2022 11:09 AM EDT Healthcare maintenance LIPID PANEL Routine 05/10/2022 11:09 AM EDT Healthcare maintenance COMPREHENSIVE METABOLIC PANEL Routine 05/10/2022 11:09 AM EDT Nonischemic cardiomyopathy documented in this encounter Results * (ABNORMAL) CBC Auto Differential (05/10/2022 11:09 AM EDT) WBC 9.66 3.40 - 10.80 10*3/mm3 05/10/2022 2:15 PM EDT [facility] RBC 5.02 3.77 - 5.28 10*6/mm3 05/10/2022 2:15 PM EDT [facility] Hemoglobin 13.9 12.0 - 15.9 g/dL 05/10/2022 2:15 PM EDT [facility] Hematocrit 41.4 34.0 - 46.6 % 05/10/2022 2:15 PM EDT [facility] MCV 82.5 79.0 - 97.0 fL 05/10/2022 2:15 PM EDT [facility] MCH 27.7 26.6 - 33.0 pg 05/10/2022 2:15 PM EDT [facility] MCHC 33.6 31.5 - 35.7 g/dL 05/10/2022 2:15 PM EDT [facility] RDW 14.2 12.3 - 15.4 % 05/10/2022 2:15 PM EDT [facility] RDW-SD 42.6 37.0 - 54.0 fl 05/10/2022 2:15 PM EDT [facility] MPV 9.4 6.0 - 12.0 fL 05/10/2022 2:15 PM EDT [facility] Platelets 240 140 - 450 10*3/mm3 05/10/2022 2:15 PM EDT [facility] Neutrophil % 77.6(H) 42.7 - 76.0 % 05/10/2022 2:15 PM EDT [facility] Lymphocyte % 15.7(L) 19.6 - 45.3 % 05/10/2022 2:15 PM EDT [facility] Monocyte % 5.2 5.0 - 12.0 % 05/10/2022 2:15 PM EDT [facility] Eosinophil % 0.8 0.3 - 6.2 % 05/10/2022 2:15 PM EDT [facility] Basophil % 0.3 0.0 - 1.5 % 05/10/2022 2:15 PM EDT [facility] Immature Grans % 0.4 0.0 - 0.5 % 05/10/2022 2:15 PM EDT [facility] Neutrophils, Absolute 7.49(H) 1.70 - 7.00 10*3/mm3 05/10/2022 2:15 PM EDT [facility] Lymphocytes, Absolute 1.52 0.70 - 3.10 10*3/mm3 05/10/2022 2:15 PM EDT [facility] Monocytes, Absolute 0.50 0.10 - 0.90 10*3/mm3 05/10/2022 2:15 PM EDT [facility] Eosinophils, Absolute 0.08 0.00 - 0.40 10*3/mm3 05/10/2022 2:15 PM EDT [facility] Basophils, Absolute 0.03 0.00 - 0.20 10*3/mm3 05/10/2022 2:15 PM EDT [facility] Immature Grans, Absolute 0.04 0.00 - 0.05 10*3/mm3 05/10/2022 2:15 PM EDT [facility] nRBC 0.0 0.0 - 0.2 /100 WBC 05/10/2022 2:15 PM EDT [facility] Blood Venipuncture / Unknown 05/10/2022 11:09 AM EDT 05/10/2022 11:09 AM EDT us Ivette Collins APRN LAB BLOOD ORDERABLES Madeline yohan Result [facility]
[address] [place] [address], * (ABNORMAL) Lipid Panel (05/10/2022 11:09 AM EDT) Total Cholesterol 195 0 - 200 mg/dL 05/10/2022 2:33 PM EDT [facility] Triglycerides 140 0 - 150 mg/dL 05/10/2022 2:33 PM EDT [facility] HDL Cholesterol 50 40 - 60 mg/dL 05/10/2022 2:33 PM EDT [facility] LDL Cholesterol 120(H) 0 - 100 mg/dL 05/10/2022 2:33 PM EDT [facility] VLDL Cholesterol 25 5 - 40 mg/dL 05/10/2022 2:33 PM EDT [facility] LDL/HDL Ratio 2.34 05/10/2022 2:33 PM T [facility] Blood Venipuncture / Unknown 05/10/2022 11:09 AM EDT 05/10/2022 11:09 AM EDT Narrative [facility] - 05/10/2022 2:33 PM EDT Cholesterol Reference Ranges (U.S. Department of Health and Human Services ATP III Classifications) Desirable ?<200 mg/dL Borderline High ?200-239 mg/dL High Risk ?>240 mg/dL Triglyceride Reference Ranges (U.S. Department of Health and Human Services ATP III Classifications) Normal ? <150 mg/dL Borderline High ??150-199 mg/dL High ? 200-499 mg/dL Very High ?>500 mg/dL HDL Reference Ranges (U.S. Department of Health and Human Services ATP III Classifications) Low ? <40 mg/dl (major risk factor for CHD) High ?>60 mg/dl ('negative' risk factor for CHD) LDL Reference Ranges (U.S. Department of Health and Human Services ATP III Classifications) Optimal ?<100 mg/dL Near Optimal ? 100-129 mg/dL Borderline High ??130-159 mg/dL High ? 160-189 mg/dL Very High ?>189 mg/dL us Ivette Collins ARCHEOLOGY PROFESSOR LAB BLOOD ORDERABLES Madeline almanzar Result [facility]
[address] [place] [address], * (ABNORMAL) Comprehensive Metabolic Panel (05/10/2022 11:09 AM EDT) Pathologist [facility] Glucose 86 65 - 99 mg/dL 05/10/2022 2:33 PM EDT [facility] BUN 12 6 - 20 mg/dL 05/10/2022 2:33 PM EDT [facility] Creatinine 0.56(L) 0.57 - 1.00 mg/dL 05/10/2022 2:33 PM EDT [facility] Sodium 142 136 - 145 mmol/L 05/10/2022 2:33 PM EDT [facility] Potassium 4.1 3.5 - 5.2 mmol/L 05/10/2022 2:33 PM EDT [facility] Chloride 102 98 - 107 mmol/L 05/10/2022 2:33 PM EDT [facility] CO2 26.8 22.0 - 29.0 mmol/L 05/10/2022 2:33 PM EDT [facility] Calcium 10.1 8.6 - 10.5 mg/dL 05/10/2022 2:33 PM EDT [facility] Total Protein 7.0 6.0 - 8.5 g/dL 05/10/2022 2:33 PM EDT [facility] Albumin 4.4 3.5 - 5.2 g/dL 05/10/2022 2:33 PM EDT [facility] ALT (SGPT) 27 1 - 33 U/L 05/10/2022 2:33 PM EDT [facility] AST (SGOT) 17 1 - 32 U/L 05/10/2022 2:33 PM EDT [facility] Alkaline Phosphatase 99 39 - 117 U/L 05/10/2022 2:33 PM EDT [facility] Total Bilirubin 0.4 0.0 - 1.2 mg/dL 05/10/2022 2:33 PM EDT [facility] Globulin 2.6 gm/dL 05/10/2022 2:33 PM EDT [facility] A/G Ratio 1.7 g/dL 05/10/2022 2:33 PM EDT [facility] BUN/Creatinine Ratio 21.4 7.0 - 25.0 05/10/2022 2:33 PM EDT [facility] Anion Gap 13.2 5.0 - 15.0 mmol/L 05/10/2022 2:33 PM EDT [facility] eGFR 105.9 >60.0 mL/min/1.7 3 05/10/2022 2:33 PM EDT [facility] Blood Venipuncture / Unknown 05/10/2022 11:09 AM EDT 05/10/2022 11:09 AM EDT Narrative [facility] - 05/10/2022 2:33 PM EDT GFR Normal >60 Chronic Kidney Disease <60 Kidney Failure <15 Ivette Collins ARCHEOLOGY PROFESSOR LAB BLOOD ORDERABLES Madeline l Result [facility]
[address] [place] [address], * TSH (05/10/2022 11:09 AM EDT) TSH 1.180 0.270 - 4.200 uIU/mL 05/10/2022 2:37 PM EDT [facility] Blood Venipuncture / Unknown 05/10/2022 11:09 AM EDT 05/10/2022 11:09 AM EDT Ivette Collins ARCHEOLOGY PROFESSOR LAB BLOOD ORDERABLES Madeline almanzar Result [facility]
[address] [place] [address], documented in this encounter Visit Diagnoses Diagnosis Healthcare maintenance Nonischemic cardiomyopathy Other primary cardiomyopathies documented in this encounter Additional Health Concerns Infection Onset Date Last Indicated Resolved Time COVID Screen (preop/placement) 06/15/2021 07/10/2021 04/11/2023 12:11 PM EST documented as of this encounter Care Teams Mortgage Loan Officer Originator Relationship Specialty Start Date End Date Alessandro Trejo MD PCP - General 10/12/14 documented as of this encounter
--- OUTSIDE RECORDS SUMMARY | 2024-01-22 19:51 | XMS_ITS | Encounter Summary ---
Author Organization [facility] Address [address] [place] [address] Care Team Providers Care Political Science Faculty Member Name Role Phone Alessandro Trejo MD Primary Care Provider + [phone] Encounter Details Date Type Department Care Team (Late st Contact Info) Description 12/23/[address] [place] [address] Pippa Chamberlain RN Social History Tobacco Use [...] Telephone Encounter - Pippa Chamberlain RN - 12/23/2020 5:06 PM EDT Attempted to notify patient of results and recommendation. Left message for patient to return my call. documented in this encounter Plan of Treatment Not on file documented as of this encounter Visit Diagnoses Not on filedocumented in this encounter Care Teams Political Science Faculty Member Relationship Specialty Start Date End Date Alessandro Trejo MD PCP - General 10/12/14 documented as of this encounter
--- OUTSIDE RECORDS SUMMARY | 2024-01-22 19:51 | XMS_ITS | Encounter Summary ---
[facility] Organization [facility] Address [address] [place] [address] Care Team Providers Care Textile Chemist Name Role Phone Alessandro Trejo MD Primary Care Provider + [phone] Encounter Details Date Type Department Care Team (Late st Contact Info) Description 07/10/2021 10:00 AM EDT Lab [facility] COVID19 [facility] [address] [place] [address] Encounter for screening for viral disease Social History Tobacco Use Types Packs/Day Years [...] Procedure Name Priority Date/Time Associated Diagnosis Comments COVID-19, APTIMA PANTHER 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 Range HOLOGIC PANTHER 07/10/2021 8:58 PM EDT [facility] Swab Nasopharyngeal structure / Unknown Collection / Unknown 07/10/2021 10:24 AM EDT 07/10/2021 10:25 AM EDT Narrative [facility] - 07/10/2021 8:58 PM EDT Fact sheet for providers: https://www.fda.gov/media/583578/download Fact sheet for patients: https://www.fda.gov/media/158069/download Test performed by RT PCR. us Fariba Wood MD MICROBIOLOGY - GENERAL ORDERAB LES Final Result [facility]
[address] [place] [address], documented in this encounter Visit Diagnoses Diagnosis Encounter for screening for viral disease documented in this encounter Additional Health Concerns Infection Onset Date Last Indicated Resolved Time COVID Screen (preop/placement) 06/15/2021 07/10/2021 04/11/2023 12:11 PM EST documented as of this encounter Care Teams Textile Chemist Relationship Specialty Start Date End Date Alessandro Trejo MD PCP - General 10/12/14 documented as of this encounter
--- OUTSIDE RECORDS SUMMARY | 2024-01-22 19:51 | XMS_ITS | Encounter Summary ---
Author Organization [facility] Address [address] [place] [address] Care Team Providers Care Bacteriologist Food Name Role Phone Alessandro Trejo MD Primary Care Provider + [phone] Reason for Referral * (Routine) - Closed Specialty Diagnoses / Procedures Referred By Tonie leigh Referred To Contact Radiology Diagnoses Abnormal mammogram Procedures Mammo Post Clip Placement Right Fariba Wood MD Phone: tel: fax: Referral ID Status Reason Start Date Expiration Date Visits Re quested Visits Authorized [id number] Closed 02/20/2021 02/20/2022 1 1 Reason for Visit * (Routine) - Closed Specialty Diagnoses / Procedures Referred By Tonie leigh Referred To Contact Radiology Diagnoses Abnormal mammogram Procedures Mammo Post Clip Placement Right Fariba Wood MD Phone: tel: fax: Referral ID Status Reason Start Date Expiration Date Visits Re quested Visits Authorized [id number] Closed 02/20/2021 02/20/2022 1 1 Encounter Details Date Type Department Care Team (Latest Contact Info) Description 02/20/2021 11:41 AM EST - 02/20/2021 11:59 PM EST Hospital Encounter [place] [id number] Abnormal mammogram Discharge Disposition: Home or Self [...] Associated Diagnosis Comments MAMMO POST DEVICE PLACEMENT RIGHT Routine 02/20/2021 1:00 PM EST Abnormal mammogram documented in this encounter Results * Mammo Post Clip Placement Right (02/20/2021 1:00 PM EST) Anatomical Region Laterality Modality Breast Right Mammography 02/20/2021 11:5 6 AM EST Impressions 02/22/2021 4:17 PM EST Fine needle aspiration of a level 1 right axillary lymph node. A single view right MLO was performed revealing the clip within the prominent right axillary lymph node. PATHOLOGY: Benign reactive lymph node. Six-month follow-up axillary sonogram is recommended. This report was finalized on 02/22/2021 4:[address] Anabel Meier MD. Narrative 02/22/2021 4:17 PM EST RIGHT AXILLARY LYMPH NODE ULTRASOUND GUIDED FNA WITH ULTRASOUND-GUIDED TITANIUM CLIP PLACEMENT AND POST CLIP DIAGNOSTIC RIGHT MAMMOGRAM CLINICAL INDICATION: Prominent right axillary lymph node. History of right mastectomy PROCEDURE: ??The procedure was explained to the patient and acknowledgement of understanding was made. ??A time out was observed to verify patient's identity and correct location of the breast abnormality. ??Written consent was obtained. The presence of the mass was confirmed with a 12 MHz linear transducer. The breast/axilla was prepped and draped in the usual sterile fashion. 5 mL 1% buffered Lidocaine solution without epinephrine was used for local anesthesia. A 22 gauge needle attached to a syringe was placed into the lymph node under direct sonographic guidance. ??Position within the lymph node was confirmed with orthogonal views. ??A total of 4 aspirations were then performed. ??The aspirations were placed in the appropriate fixative solution and transported to the pathology department. 2 samples were sent for cytology, 2% for flow cytometry. A titanium clip was placed under ultrasound guidance. Upon completion of the procedure, the overlying skin was cleaned with hydrogen peroxide and the biopsy site bandaged. Anabel Meier MD IMG MAMMOGRAPHY ORDERABLES Fi nal Result documented in this encounter Visit Diagnoses Diagnosis Abnormal mammogram Abnormal mammogram, unspecified documented in this encounter Care Teams Bacteriologist Food Relationship Specialty Start Date End Date Alessandro Trejo MD PCP - General 10/12/14 documented as of this encounter
--- OUTSIDE RECORDS SUMMARY | 2024-01-22 19:51 | XMS_ITS | Encounter Summary ---
[facility] Organization [facility] Address [address] [place] [address] Care Team Providers Care Appeals Nurse Name Role Phone Alessandro Trejo MD Primary Care Provider + [phone] Encounter Details Date Type Department Care Team (Late st Contact Info) Description 05/15/2022 Documentation [facility] [address] [facility] [address] [place] [address] Ivette Collins, STEPHAN [address] [facility] [address] [place] [id number] Social History Tobacco Use Types Packs/Day Years [...] Progress Notes * Ivette Collins APRN - 05/15/2022 9:11 AM EDT I contacted Anuradha to let her know the results of her blood work. All of the blood work looks good with the exception of her LDL was a little elevated at 120. She should try to eat a healthier diet. She reports still having palpitations and lightheaded spells. She had a spell after leaving our office. She has an echocardiogram ordered but has not been performed yet. I am going to mail her a 2-week monitor. I will contact her once the results are known. Ivette Collins APRN documented in this encounter Plan of Treatment Not on file documented as of this encounter Visit Diagnoses Not on filedocumented in this encounter Additional Health Concerns Infection Onset Date Last Indicated Resolved Time COVID Screen (preop/placement) 06/15/2021 07/10/2021 04/11/2023 12:11 PM EST documented as of this encounter Care Teams Appeals Nurse Relationship Specialty Start Date End Date Alessandro Trejo MD PCP - General 10/12/14 documented as of this encounter
--- OUTSIDE RECORDS SUMMARY | 2024-01-22 19:51 | XMS_ITS | Encounter Summary ---
Author Organization [facility] Address [address] [place] [address] Care Team Providers Care Geriatric Physician Name Role Phone Alessandro Trejo MD Primary Care Provider + [phone] Reason for Visit * (Routine) - Closed Specialty Diagnoses / Procedures Referred By Contac t Referred To Contact Radiology Diagnoses Benign mammary dysplasia, unspecified laterality Family history of malignant neoplasm of breast Personal history of malignant neoplasm of breast Procedures Mammo Stereotactic Breast Device Placement Initial Without Bx Mammo Breast Placement Device Initial Without Biopsy Fariba Wood MD Phone: tel: fax: Referral ID Status Reason Start Date Expiration Date Visits Re quested Visits Authorized [id number] Closed 07/03/2021 07/03/2022 1 1 Encounter Details Date Type Department Care Team (Latest Contact Info) Description 07/12/2021 8:15 AM EDT - 07/12/2021 11:59 PM EDT Hospital Encounter [facility] [address] [place] [address] Benign mammary dysplasia, unspecified laterality; Family history [...] Name Priority Date/Time Associated Diagnosis Comments MAMMO STEREOTACTIC BREAST DEVICE PLACEMENT INITIAL WO BX Routine 07/12/2021 9:53 AM EDT Benign mammary dysplasia, unspecified laterality Family history of malignant neoplasm of breast Personal history of malignant neoplasm of breast documented in this encounter Results * Mammo Stereotactic Breast Device Placement Initial Without Bx (07/12/2021 9:53 AM EDT) Anatomical Region Laterality Modality Breast N/A Mammography 07/18/2021 11:5 0 AM EDT Narrative [...] concordant. The patient is being followed by [facility]. This report was finalized on 07/18/2021 3:[address] Anabel Meier MD. Fariba Wood MD IMG MAMMOGRAPHY ORDERABLES Fin al Result documented in this encounter Visit Diagnoses Diagnosis Benign mammary dysplasia, unspecified laterality Family history of malignant neoplasm of breast Personal history of malignant neoplasm of breast documented in this encounter Additional Health Concerns Infection Onset Date Last Indicated Resolved Time COVID Screen (preop/placement) 06/15/2021 07/10/2021 04/11/2023 12:11 PM EST documented as of this encounter Care Teams Geriatric Physician Relationship Specialty Start Date End Date Alessandro Trejo MD PCP - General 10/12/14 documented as of this encounter
--- OUTSIDE RECORDS SUMMARY | 2024-01-22 19:51 | XMS_ITS | Encounter Summary ---
[facility] Address [address] [place] [address] Care Team Providers Care Steward/Stewardess Chief Cargo Vessel Name Role Phone Alessandro Trejo MD Primary Care Provider + [phone] Encounter Details Date Type Department Care Team (Late st Contact Info) Description 12/26/2020 [place] [address] Pippa Chamberlain RN Social History Tobacco Use [...] Encounter - Pippa Chamberlain RN - 12/26/2020 10:46 AM EST Pt notified of surgical consult appointment with Dr DANITA Wood on 01/04/21 @ 1400/1430 . Pt given office contact & location information. Told to bring photo ID, list of prescription & OTC medications, insurance information, must wear a mask. Encouraged pt to call back or contact surgeon's office with further questions. Pt verbalized understanding. documented in this encounter Plan of Treatment Not on file documented as of this encounter Visit Diagnoses Not on filedocumented in this encounter Care Teams Steward/Stewardess Chief Cargo Vessel Relationship Specialty Start Date End Date Alessandro Trejo MD PCP - General 10/12/14 documented as of this encounter
--- OUTSIDE RECORDS SUMMARY | 2024-01-22 19:51 | XMS_ITS | Encounter Summary ---
[facility] Address [address] [place] [address] Care Team Providers Care Drum Reel Cutter Name Role Phone Alessandro Trejo MD Primary Care Provider + [phone] Encounter Details Date Type Department Care Team (Late st Contact Info) Description 02/27/2021 Telephone [facility] MRI AT [address] [phone] Mine Welsh Social History Tobacco [...] * Telephone Encounter - Mine Welsh - 02/27/2021 9:11 AM EST Called patient with MRI Breast results. Recommended MRI Bx scheduled for 03/09 at 8:00. Pt expressedunderstanding and was encouraged to call with any further questions or concerns. documented in this encounter Plan of Treatment Not on file documented as of this encounter Visit Diagnoses Not on filedocumented in this encounter Care Teams Drum Reel Cutter Relationship Specialty Start Date End Date Alessandro Trejo MD PCP - General 10/12/14 documented as of this encounter
--- OUTSIDE RECORDS SUMMARY | 2024-01-22 19:51 | XMS_ITS | Encounter Summary ---
Author Organization [facility] Address [address] [place] [address] Care Team Providers Care Branding Specialist Name Role Phone Alessandro Trejo MD Primary Care Provider + [phone] Reason for Visit * Reason Comments Dizziness Shortness of Breath Irregular Heart Beat * Consultation (Routine) - Closed Specialty Diagnoses / Procedures Referred By Contac t Referred To Contact Cardiology Diagnoses Cardiomyopathy LOANS CONSULTANT DX CARDIOMYOPATHY REF E ANDRES (PREV CARD [facility]) Procedures NEW PATIENT Alessandro Trejo MD Phone: tel: fax: Cindy Allison MD [address] [place] [address] Phone: tel: fax: Referral ID Status Reason Start Date Expiration Date Visits Re quested Visits Authorized [id number] Closed 07/27/2021 07/27/2022 1 1 Encounter Details Date Type Department Care Team (Late st Contact Info) Description 07/27/2021 2:[address] PM EDT Office Visit [facility] C[facility]OLOG[facility] [address] [place] [address] Cindy Allison MD [address] [place] [address] Nonischemic cardiomyopathy (Primary Dx); Tobacco use Social History Tobacco Use Types Packs/Day Years [...] on file documented as of this encounter Last Filed Vital Signs Vital Sign Reading Time Taken Comments Blood Pressure 126/72 07/27/2021 2:12 PM EDT Pulse 98 07/27/2021 2:12 PM EDT Temperature - - Respiratory Rate - - Oxygen Saturation 97% 07/27/2021 2:12 PM EDT Inhaled Oxygen Concentration - - Weight 82.1 kg (181 lb) 07/27/2021 2:12 PM EDT Height 166.4 cm (5' 5.5 ) 07/27/2021 2:12 PM EDT Body Mass Index 29.66 07/27/2021 2:12 PM EDT documented in this encounter Progress Notes * Cindy Allison MD - 07/27/2021 2:00 PM EDTAssociated Order(s): ECG 12 Lead [facility] Subjective: Encounter Date:07/27/2021 Patient ID: Anuradha Cui is a 55 y.o. female. Referring provider: Alessandro Trejo MD Reason for consultation: Chief Complaint Patient presents with ??? Dizziness ??? Shortness of Breath ??? Irregular Heart Beat PROBLEM LIST: 1. 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 Echocardiogram, [...] of 8 minutes and 30 seconds with anactual duration of 6 minutes and 20 seconds. Normal left ventricular systolic function and wall motion. g. Echocardiogram 04/07/2013: LVEF 55% to 60% with trace MR, trace TR. h. Echocardiogram 05/13/14: EF 55-60%, trace MR,TR, AR i. Echo 11/29/20, [facility]: EF 55 +/- 5%, no sig VHD. 2. Hyperlipidemia 1. FLP 09/29/20: TC 216, HDL 49, LDL 128, Trig 194. 3. Right breast carcinoma: a. Diagnosis by abnormal mammogram. b. Mastectomy, 02/05/2009. c. Complication with methicillin-resistant Staphylococcus aureus infection and subsequent explantation of business performance analyst prosthesis. 4. Thoracic outlet syndrome. 5. Restless Leg Syndrome. 6. Tobacco Abuse 1. 1 ppd, started x 25 yrs (2021) 7. Surgical history: a. Endometriosis, exploratory laparoscopies in 1983 and 2003. b. Cholecystectomy in 2004. HPI: Anuradha Cui is a 55 y.o. female who is seen in consultation today at the request of Alessandro Trejo MD to reestablish care for her cardiomyopathy. She was diagnosed with cardiomyopathy duringpregnancy in 2006. She was lost to follow up and has since stopped taking her beta oh. She feels better on beta oh and notes that she was able to go up stairs with less SOA on bisoprolol. No PND, orthopnea, edema, CP, SOA. BP controlled. She continues to smoke. Medications and Allergies: Allergies Allergen Reactions ??? Bactrim [Sulfamethoxazole-Trimethoprim] Other (See Comments) pruritus ??? Codeine Nausea Only ??? Lisinopril Other (See Comments) fatigue ??? Sectral [Acebutolol Hcl] Other (See Comments) fatigue Current Outpatient Medications: ??? cholecalciferol (VITAMIN D3) 25 MCG (1000 UT) tablet, Take 1,000 Units by mouth Daily., Disp: ,Rfl: ??? multivitamin with minerals (MULTIVITAMIN ADULT PO), Take 1 tablet by mouth Daily., Disp: , Rfl: ??? vitamin B-12 (CYANOCOBALAMIN) 100 MCG tablet, Take 50 mcg by mouth Daily., Disp: , Rfl: ??? bisoprolol (ZEBeta) 5 MG tablet, Take 1 tablet by mouth Daily., Disp: 30 tablet, Rfl: 11 Social History: Social History Tobacco Use ??? Smoking status: Current Every Day Smoker Packs/day: 1.00 Types: Cigarettes ??? Smokeless tobacco: Never Used Substance Use Topics ??? Alcohol use: No Family History: family history includes Arrhythmia in her mother; Breast cancer in her maternal aunt; Cancer in herfather; Ovarian cancer in her maternal aunt. She was adopted. Review of Systems: Pertinent positives in HPI The following portions of the patient's history were reviewed and updated as appropriate: allergies, current medications and problem list. Objective: Vitals: 07/27/21 1412 BP: 126/72 Pulse: 98 SpO2: 97% GENERAL: This is a well-developed, well-nourished, female who is in no acute distress. SKIN: [place] and warm without rash or abnormality noted. HEENT: Head is normocephalic and atraumatic. Pupils are equal and reactive to light bilaterally. Mucous membranes are pink and moist. NECK: Supple without lymphadenopathy or thyromegaly. There is no jugular venous distention at 30??. LUNGS: Clear to auscultation bilaterally without wheezing, rhonchi, or rales noted. CARDIOVASCULAR: The heart has a regular rate with a normal S1 and S2. There is no murmur, gallop, rub, or click appreciated. The PMI is nondisplaced. Carotid upstrokes are 2+ and symmetrical without bruits. ABDOMEN: Soft and nondistended with positive bowel sounds x4. The patient denies tenderness of palpitation. MUSCULOSKELETAL: There are no obvious bony abnormalities. Normal range of tenderness to palpation. NEUROLOGICAL: Nonfocal. Alert and oriented x3. PERIPHERAL VASCULAR: Femoral pulses are 2+ and symmetrical without bruits. Posterior tibial and dorsalis pedis pulses are 2+ and symmetrical. There is no peripheral edema. PSYCH: Normal mood and affect. ECG 12 Lead Date/Time: 07/27/2021 2:41 PM Performed by: Denisse Villavicencio APRN Authorized by: Denisse Villavicencio APRN Previous ECG: no previous ECG available Rhythm: sinus rhythm BPM: 98 Advance Care Planning ACP discussion was declined by the patient. Patient does not have an advance directive, informationprovided. ASSESSMENT ICD-10-CM ICD-9-CM 1. Nonischemic cardiomyopathy (HCC) I42.8 425.4 2. Tobacco use Z72.0 305.1 PLAN 1. Bisoprolol 5 mg po daily for history of non ischemic cardiomyopathy and to help with rate control. 2. I have educated her on the risk of diseases from using tobacco products such as cancer, COPD andheart disease. I advised her to quit and she is not willing to quit. I spent 3 minutes counseling the patient. 3. Patient was counseled to begin aerobic exercise 30 min per day for at least 4 days per week. 4. Follow-up in Return in about 6 months (around 01/26/2022)., sooner as needed. Scribed for Cindy Allison MD by Vickie Villavicencio APRN. 07/27/2021 14:47 EDT I Cindy Allison MD personally performed the services described in this documentation as scribed by the above individual in my presence, and it is both accurate and complete. Cindy Allison MD, FACC documented in this encounter Plan of Treatment Not on file documented as of this encounter Procedures Procedure Name Priority Date/Time Associated Diagnosis Comments ECG 12-LEAD Routine 07/27/2021 Nonischemic cardiomyopathy documented in this encounter Results * ECG 12-LEAD (07/27/2021) Narrative 07/27/2021 Cindy Allison MD ? 07/27/2021 ??3:00 PM ECG 12 Lead Date/Time: 07/27/2021 2:41 PM Performed by: Denisse Villavicencio APRN Authorized by: Denisse Villavicencio APRN Previous ECG: no previous ECG available Rhythm: sinus rhythm BPM: 98 Procedure Note Cindy Allison MD - 07/27/2021 2:00 PM EDT [facility] Subjective: Encounter Date:07/27/2021 Patient ID: Anuradha Cui is a 55 y.o. female. Referring provider: Alessandro Trejo MD Reason for consultation: Chief Complaint Patient presents with ? ? Dizziness ? ? Shortness of Breath ? ? Irregular Heart Beat PROBLEM LIST: 1. 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 Echocardiogram, 2004, revealing mild intra-atrial septal aneurysm,normal valves and ejection fraction of 50% to 55%. b. Echocardiogram, November 2007, Dr. Allison, revealing mild mitralregurgitation, mild tricuspid regurgitation, normal ejection fraction withfrequent premature ventricular contractions. No evidence of atrial septaldefect. c. Limited 2-dimensional echocardiogram revealing ejection fraction of 25%to 30%. d. Echocardiogram, 06/28/2008: Left ventricular ejection fraction of 40%to 45% with mild mitral regurgitation and mild tricuspid regurgitation. e. Echocardiogram, 09/30/2008: Left ventricular ejection fraction of 40%to 45% with trace mitral regurgitation and trace tricuspidregurgitation. f. Stress echocardiogram 02/06/2010: Expected exercise duration of 8minutes and 30 seconds with an actual duration of 6 minutes and 20seconds. Normal left ventricular systolic function and wall motion. g. Echocardiogram 04/07/2013: LVEF 55% to 60% with trace MR, trace TR. h. Echocardiogram 05/13/14: EF 55-60%, trace MR,TR, AR i. Echo 11/29/20, [facility]: EF 55 +/- 5%, no sig VHD. 2. Hyperlipidemia 1. FLP 09/29/20: TC 216, HDL 49, LDL 128, Trig 194. 3. Right breast carcinoma: a. Diagnosis by abnormal mammogram. b. Mastectomy, 02/05/2009. c. Complication with methicillin-resistant Staphylococcus aureus infectionand subsequent explantation of business performance analyst prosthesis. 4. Thoracic outlet syndrome. 5. Restless Leg Syndrome. 6. Tobacco Abuse 1. 1 ppd, started x 25 yrs (2021) 7. Surgical history: a. Endometriosis, exploratory laparoscopies in 1983 and 2003. b. Cholecystectomy in 2004. HPI: Anuradha Cui is a 55 y.o. female who is seen in consultation today atthe request of Alessandro Trejo MD to reestablish care for hercardiomyopathy. She was diagnosed with cardiomyopathy during [id number]. She was lost to follow up and has since stopped taking her betablocker. She feels better on beta oh and notes that she was able togo up stairs with less SOA on bisoprolol. No PND, orthopnea, edema, CP,SOA. BP controlled. She continues to smoke. Medications and Allergies: Allergies Allergen Reactions ? ? Bactrim [Sulfamethoxazole-Trimethoprim] Other (See Comments) pruritus ? ? Codeine Nausea Only ? ? Lisinopril Other (See Comments) fatigue ? ? Sectral [Acebutolol Hcl] Other (See Comments) fatigue Current Outpatient Medications: ? ? cholecalciferol (VITAMIN D3) 25 MCG (1000 UT) tablet, Take 1,000 Unitsby mouth Daily., Disp: , Rfl: ? ? multivitamin with minerals (MULTIVITAMIN ADULT PO), Take 1 tablet bymouth Daily., Disp: , Rfl: ? ? vitamin B-12 (CYANOCOBALAMIN) 100 MCG tablet, Take 50 mcg by mouthDaily., Disp: , Rfl: ? ? bisoprolol (ZEBeta) 5 MG tablet, Take 1 tablet by mouth Daily., Disp:30 tablet, Rfl: 11 Social History: Social History Tobacco Use ? ? Smoking status: Current Every Day Smoker Packs/day: 1.00 Types: Cigarettes ? ? Smokeless tobacco: Never Used Substance Use Topics ? ? Alcohol use: No Family History: family history includes Arrhythmia in her mother; Breast cancer in hermaternal aunt; Cancer in her father; Ovarian cancer in her maternal aunt.She was adopted. Review of Systems: Pertinent positives in HPI The following portions of the patient's history were reviewed and updatedas appropriate: allergies, current medications and problem list. Objective: Vitals: 07/27/21 1412 BP: 126/72 Pulse: 98 SpO2: 97% GENERAL: This is a well-developed, well-nourished, female who is in noacute distress. SKIN: [place] and warm without rash or abnormality noted. HEENT: Head is normocephalic and atraumatic. Pupils are equal and reactiveto light bilaterally. Mucous membranes are pink and moist. NECK: Supple without lymphadenopathy or thyromegaly. There is no jugularvenous distention at 30??. LUNGS: Clear to auscultation bilaterally without wheezing, rhonchi, orrales noted. CARDIOVASCULAR: The heart has a regular rate with a normal S1 and S2.There is no murmur, gallop, rub, or click appreciated. The PMI isnondisplaced. Carotid upstrokes are 2+ and symmetrical without bruits. ABDOMEN: Soft and nondistended with positive bowel sounds x4. The patientdenies tenderness of palpitation. MUSCULOSKELETAL: There are no obvious bony abnormalities. Normal range oftenderness to palpation. NEUROLOGICAL: Nonfocal. Alert and oriented x3. PERIPHERAL VASCULAR: Femoral pulses are 2+ and symmetrical without bruits.Posterior tibial and dorsalis pedis pulses are 2+ and symmetrical. Thereis no peripheral edema. PSYCH: Normal mood and affect. ECG 12 Lead Date/Time: 07/27/2021 2:41 PM Performed by: Denisse Villavicencio APRN Authorized by: Denisse Villavicencio APRN Previous ECG: no previous ECG available Rhythm: sinus rhythm BPM: 98 Advance Care Planning ACP discussion was declined by the patient. Patient does not have anadvance directive, information provided. ASSESSMENT ICD-10-CM ICD-9-CM 1. Nonischemic cardiomyopathy (HCC) I42.8 425.4 2. Tobacco use Z72.0 305.1 PLAN 1. Bisoprolol 5 mg po daily for history of non ischemic cardiomyopathy andto help with rate control. 2. I have educated her on the risk of diseases from using tobacco productssuch as cancer, COPD and heart disease. I advised her to quit and she isnot willing to quit. I spent 3 minutes counseling the patient. 3. Patient was counseled to begin aerobic exercise 30 min per day for atleast 4 days per week. 4. Follow-up in Return in about 6 months (around 01/26/2022)., sooner asneeded. Scribed for Cindy Allison MD by Vickie Villvaicencio APRN.07/27/2021 14:47 EDT I Cindy Allison MD personally performed the services described inthis documentation as scribed by the above individual in my presence, andit is both accurate and complete. Cindy Allison MD, FACC Denisse B [employer] PUPPY TRAINER ECG ORDERABLES Final Result documented in this encounter Visit Diagnoses Diagnosis Nonischemic cardiomyopathy- Primary Other primary cardiomyopathies Tobacco use documented in this encounter Additional Health Concerns Infection Onset Date Last Indicated Resolved Time COVID Screen (preop/placement) 06/15/2021 07/10/2021 04/11/2023 12:11 PM EST documented as of this encounter Care Teams Branding Specialist Relationship Specialty Start Date End Date Alessandro Trejo MD PCP - General 10/12/14 documented as of this encounter
--- OUTSIDE RECORDS SUMMARY | 2024-01-22 19:51 | XMS_ITS | Encounter Summary ---
Author Organization [facility] Address [address] [place] [address] Care Team Providers Care Cottage Parent Name Role Phone Alessandro Trejo MD Primary Care Provider + [phone] Reason for Referral * (Routine) - Closed Specialty Diagnoses / Procedures Referred By Contac t Referred To Contact Radiology Diagnoses Benign mammary dysplasia, unspecified laterality Family history of malignant neoplasm of breast Personal history of malignant neoplasm of breast Procedures Mammo Breast Specimen Fariba Wood MD Phone: tel: fax: Referral ID Status Reason Start Date Expiration Date Visits Re quested Visits Authorized [id number] Closed 07/12/2021 07/12/2022 1 1 Reason for Visit * (Routine) - Closed Specialty Diagnoses / Procedures Referred By Contac t Referred To Contact Radiology Diagnoses Benign mammary dysplasia, unspecified laterality Family history of malignant neoplasm of breast Personal history of malignant neoplasm of breast Procedures Mammo Breast Specimen Fariba Wood MD Phone: tel: fax: Referral ID Status Reason Start Date Expiration Date Visits Re quested Visits Authorized [id number] Closed 07/12/2021 07/12/2022 1 1 Encounter Details Date Type Department Care Team (Latest Contact Info) Description 07/12/2021 8:20 AM EDT - 07/12/2021 11:59 PM EDT Hospital Encounter [facility] [address] [place] [id number] Benign mammary dysplasia, unspecified laterality; Family history [...] Name Priority Date/Time Associated Diagnosis Comments MAMMO BREAST SPECIMEN Routine 07/12/2021 12:10 PM EDT Benign mammary dysplasia, unspecified laterality Family history of malignant neoplasm of breast Personal history of malignant neoplasm of breast documented in this encounter Results * Mammo Breast Specimen (07/12/2021 12:10 PM EDT) Anatomical Region Laterality Modality Breast N/A Other 07/18/2021 11:5 0 AM EDT Narrative 07/18/2021 [...] concordant. The patient is being followed by [facility]. This report was finalized on 07/18/2021 [...] documented as of this encounter Care Teams Cottage Parent Relationship Specialty Start Date End Date Alessandro Trejo MD PCP - General 10/12/14 documented as of this encounter
--- OUTSIDE RECORDS SUMMARY | 2024-01-22 19:51 | XMS_ITS | Encounter Summary ---
Author Organization [facility] Address [address] [place] [address] Care Team Providers Care Poultry Hatchery Manager Name Role Phone Alessandro Trejo MD Primary Care Provider + [phone] Reason for Referral * Hospital - Outpatient (Routine) - Closed Specialty Diagnoses / Procedures Referred By Tonie leigh Referred To Contact Radiology Diagnoses Abnormal mammogram Procedures US Fine Needle Aspiration BX 1ST Lesion Fariba Wood MD Phone: tel: fax: Referral ID Status Reason Start Date Expiration Date Visits Re quested Visits Authorized [id number] Closed 02/07/2021 02/07/2022 1 1 Reason for Visit * Hospital - Outpatient (Routine) - Closed Specialty Diagnoses / Procedures Referred By Tonie leigh Referred To Contact Radiology Diagnoses Abnormal mammogram Procedures US Fine Needle Aspiration BX 1ST Lesion Fariba Wood MD Phone: tel: fax: Referral ID Status Reason Start Date Expiration Date Visits Re quested Visits Authorized [id number] Closed 02/07/2021 02/07/2022 1 1 Encounter Details Date Type Department Care Team (Latest Contact Info) Description 02/20/2021 10:00 AM EST - 02/20/2021 11:59 PM EST Hospital Encounter [facility] [address] [address] Abnormal mammogram Discharge Disposition: Home or Self [...] Name Priority Date/Time Associated Diagnosis Comments US FINE NEEDLE ASPIRATION BX 1ST LESION Routine 02/20/2021 11:38 AM EST Abnormal mammogram NON-GYNECOLOGIC CYTOLOGY Routine 02/20/2021 11:37 AM EST documented in this encounter Results * US Fine Needle Aspiration BX 1st Lesion (02/20/2021 11:38 AM EST) Anatomical Region Laterality Modality Ultrasound 02/20/2021 11:5 6 AM EST Impressions 02/22/2021 [...] hydrogen peroxide and the biopsy site bandaged. Fariba Wood MD [facility] ORDERABLES Final Result * Non-gynecologic Cytology (02/20/2021 11:37 AM EST) Case Report Non-gynecologi c Cytology ?Case: [id number] ? Authorizing Provider: ??Anabel Meier MD ? Collected: ? 02/20/2021 11:37 AM ? Ordering Location: ? [facility] ?? Received: ?02/20/2021 11:57 AM ? [facility] [address] ? ULTRASOUND ? Pathologist: ? Cyn Bowden DO ? Specimen: ?Lymph Node, RIGHT AXILLARY LYMPH NODE WITH CORTICAL THICKENING (HX RIGHT BREAST ? CANCER0 ? 02/22/2021 12:52 PM [facility] Final Diagnosis AXILLARY NODE FNA, RIGHT: Negative for metastatic carcinoma Slides reviewed and diagnosis rendered by Cyn Bowden D.O., F.C.A.P. Testing performed at outside laboratory. See scanned report. 02/22/2021 12:52 PM [facility] Flow Cytometry Summary Testing performed at outside laboratory and reported in the cytology report. 02/22/2021 12:52 PM [facility] Body Fluid Lymph node specimen / Unknown Collection / Unknown 02/20/2021 11:37 AM EST 02/20/2021 11:57 AM EST us Anabel Meier MD PATHOLOGY/CYTOLOGY ORDERABLES Final Result [facility]
[address] [place] [address], documented in this encounter Visit Diagnoses Diagnosis Abnormal mammogram Abnormal mammogram, unspecified documented in this encounter Administered Medications Inactive Administered Medications - up to 3 most recent administrations Medication Order MAR Action Action Date Dose Rate Site lidocaine (XYLOCAINE) 1 % injection 5 mL 5 mL, Injection, Once, On Sat02/20/21 at 1024, For 1 dose Given 02/20/2021 11:36 AM EST 5 mL documented in this encounter Care Teams Poultry Hatchery Manager Relationship Specialty Start Date End Date Alessandro Trejo MD PCP - General 10/12/14 documented as of this encounter
--- OUTSIDE RECORDS SUMMARY | 2024-01-22 19:51 | XMS_ITS | Encounter Summary ---
Author Organization [facility] Address [address] [place] [address] Care Team Providers Care Deck Molder Name Role Phone Alessandro Trejo MD Primary Care Provider + [phone] Reason for Visit * Monitoring (Routine) - Closed Specialty Diagnoses / Procedures Referred By Tonie leigh Referred To Contact Diagnoses Palpitations Procedures Holter Monitor - 72 Hour Up To 15 Days Ivette Collins APRN [facility] [address] [address] Phone: tel: fax: Referral ID Status Reason Start Date Expiration Date Visits Re quested Visits Authorized [id number] Closed 05/15/2022 05/15/2023 1 1 Encounter Details Date Type Department Care Team (Latest Contact Info) Description 05/15/2022 9:30 AM EDT Ancillary Procedure [facility] CARDIOLOG[facility] [address] [address] Palpitations Social History Tobacco Use Types Packs/Day Years [...] as of this encounter Plan of Treatment Pending Results Name Type Priority Associated Diagnoses Date /Time Holter Monitor - 72 Hour Up To 15 Days Cardiac Services Routine Palpitations 05/15/2022 9:18 AM EDT documented as of this encounter Visit Diagnoses Diagnosis Palpitations documented in this encounter Additional Health Concerns Infection Onset Date Last Indicated Resolved Time COVID Screen (preop/placement) 06/15/2021 07/10/2021 04/11/2023 12:11 PM EST documented as of this encounter Care Teams Deck Molder Relationship Specialty Start Date End Date Alessandro Trejo MD PCP - General 10/12/14 documented as of this encounter
--- OUTSIDE RECORDS SUMMARY | 2024-01-22 19:51 | XMS_ITS | Encounter Summary ---
Author Organization [facility] Address [address] [place] [address] Care Team Providers Care Pet Sitting Name Role Phone Alessandro Trejo MD Primary Care Provider + [phone] Reason for Referral * Diagnostic Imaging (Routine) - Closed Specialty Diagnoses / Procedures Referred By Tonie leigh Referred To Contact Radiology Diagnoses Personal history of malignant neoplasm of breast Family history of malignant neoplasm of breast Benign mammary dysplasia of left breast Procedures MRI Breast Biopsy Initial With & Without Device MRI Breast Biopsy Initial With & Without Device Fariba Wood MD Phone: tel: fax: Referral ID Status Reason Start Date Expiration Date Visits Re quested Visits Authorized [id number] Closed 02/27/2021 02/27/2022 1 1 Reason for Visit * Diagnostic Imaging (Routine) - Closed Specialty Diagnoses / Procedures Referred By Tonie leigh Referred To Contact Radiology Diagnoses Personal history of malignant neoplasm of breast Family history of malignant neoplasm of breast Benign mammary dysplasia of left breast Procedures MRI Breast Biopsy Initial With & Without Device MRI Breast Biopsy Initial With & Without Device Fariba Wood MD Phone: tel: fax: Referral ID Status Reason Start Date Expiration Date Visits Re quested Visits Authorized [id number] Closed 02/27/2021 02/27/2022 1 1 Encounter Details Date Type Department Care Team (Latest Contact Info) Description 06/01/2021 8:30 AM EDT - 06/01/2021 11:59 PM EDT Hospital Encounter [facility] MRI AT [address] [id number] Personal history of malignant neoplasm of breast; Family history of malignant neoplasm of breast; Benign mammary dysplasia of left breast Discharge Disposition: Home or Self Care [...] Procedure Name Priority Date/Time Associated Diagnosis Comments MRI BREAST BIOPSY INITIAL W WO DEVICE Routine 06/01/2021 10:20 AM EDT Personal history of malignant neoplasm of breast Family history of malignant neoplasm of breast Benign mammary dysplasia of left breast TISSUE PATHOLOGY EXAM Routine 06/01/2021 9:57 AM EDT documented in this encounter Results * MRI Breast Biopsy Initial With & Without Device (06/01/2021 10:20 AM EDT) Anatomical Region Laterality Modality Breast N/A Magnetic Resonan ce 06/01/2021 10:5 1 AM EDT Impressions 06/03/2021 8:52 PM EDT MRI guided core needle biopsy of the left breast as described above. ??A post biopsy marking clip was placed. The pathology results are pending at time of dictation. PATHOLOGY: Fibrocystic changes with focal atypical lobular hyperplasia. Background florid epithelial hyperplasia. Microcalcifications identified. Negative for in situ and invasive carcinoma. Findings are concordant. The patient will be referred to [facility] for excision of this as well as the previously biopsied abnormal 4:00 lesion. This report was finalized on 06/03/2021 8:[address] Anabel Meier MD. Narrative 06/03/2021 8:52 PM EDT MRI GUIDED LEFT BREAST BIOPSY: WITH POST CLIP DIAGNOSTIC LEFT MAMMOGRAM CLINICAL HISTORY: ??The patient is a 55-year-old female with a history of right mastectomy in 2009. Most recently the patient was diagnosed with at least atypical ductal hyperplasia following biopsy under ultrasound guidance of a 6 mm mass in the 4:00 position of the left breast anteriorly. A preoperative breast MRI revealed a subareolar 6 mm focus of enhancement separate from the previously biopsied 4:00 lesion. Given that this was the only abnormality seen enhancing on the left breast MRI biopsy is recommended. COMPARISON: ??The prior breast MRI 01/18/2021. Prior mammography 02/20/2021 11/15/2020 and 10/13/2020 TECHNIQUE: ??The risks and benefits of the procedure were explained to the patient and informed consent was obtained. ?? Time-out was performed to verify patient's identity and correct location of the breast abnormality. The area of concern was in a different position on today's examination, or did not enhance. The change is possibly due to positioning, and the enhancing lesion seen today and may represent the same lesion given the difference in positioning for biopsy versus diagnostic MRI. It was not in the immediate subareolar region but in the slightly lateral mid depth left breast. This was a dominant focus of enhancement on today's examination and therefore was selected for biopsy. After placement of an intravenous line the patient was placed prone of the MR scanner. The left breast was positioned with mild compression within the breast biopsy coil. ??A fixed fiducial marker was placed on the skin through the guidance grid at position C4 to aid in the determination of lesion location. ??An [employer] CAD system was utilized for biopsy planning. ??Precontrast and postcontrast images were obtained in the axial and sagittal planes. Next, dynamic views in the axial and sagittal planes were obtained following the administration of 16 ml of gadolinium. ??The lesion to undergo biopsy was confirmed on subtraction images and lesion position, including depth, was determined. ??The patient was removed from the bore of the MR magnet. ??The appropriate cube within the guidance grid was localized and the underlying skin was prepped with Betadine. ??After administration of local anesthesia (5 mL 1% lidocaine for superficial and 10 mL 1% lidocaine with epinephrine for deeper), the needle guide block was placed into the guidance grid. ??An introducer and trocar were then placed into the breast from a lateral approach to the pre-determined depth of 3.1 cm. ??The trocar was removed and a localizing obturator was placed through the introducer. ??Axial images revealed the tip of the obturator to be located [at/anterior to/posterior to] the lesion. ??The patient was again removed from the bore of the magnet. ??The obturator was removed and a 10g SenoRx MRI compatible vacuum assisted core needle biopsy device was placed through the cannula to the appropriate depth. ?A total of 6 samples were obtained. ?? A marking clip was then deployed. ??The patient tolerated the procedure and there were no immediate complications. ??Post-biopsy CC and ML views of the left breast were obtained for clip location. The clip is in the mid depth left breast slightly medial to the nipple near the clip from the prior 4:00 mass biopsy which revealed at least atypical ductal hyperplasia. Procedure Note Anabel Meier MD - 06/03/2021 MRI GUIDED LEFT BREAST BIOPSY: WITH POST CLIP DIAGNOSTIC LEFT MAMMOGRAM CLINICAL HISTORY: The patient is a 55-year-old female with a history of right mastectomy in 2009. Most recently the patient was diagnosed with at least atypical ductal hyperplasia following biopsy under ultrasound guidance of a 6 mm mass in the 4:00 position of the left breast anteriorly. A preoperative breast MRI revealed a subareolar 6 mm focus of enhancement separate from the previously biopsied 4:00 lesion. Given that this was the only abnormality seen enhancing on the left breast MRI biopsy is recommended. COMPARISON: The prior breast MRI 01/18/2021. Prior mammography 02/20/2021 11/15/2020 and 10/13/2020 TECHNIQUE: The risks and benefits of the procedure were explained to the patient and informed consent was obtained. Time-out was performed to verify patient's identity and correct location of the breast abnormality. The area of concern was in a different position on today's examination, or did not enhance. The change is possibly due to positioning, and the enhancing lesion seen today and may represent the same lesion given the difference in positioning for biopsy versus diagnostic MRI. It was not in the immediate subareolar region but in the slightly lateral mid depth left breast. This was a dominant focus of enhancement on today's examination and therefore was selected for biopsy. After placement of an intravenous line the patient was placed prone of the MR scanner. The left breast was positioned with mild compression within the breast biopsy coil. A fixed fiducial marker was placed on the skin through the guidance grid at position C4 to aid in the determination of lesion location. An [employer] CAD system was utilized for biopsy planning. Precontrast and postcontrast images were obtained in the axial and sagittal planes. Next, dynamic views in the axial and sagittal planes were obtained following the administration of 16 ml of gadolinium. The lesion to undergo biopsy was confirmed on subtraction images and lesion position, including depth, was determined. The patient was removed from the bore of the MR magnet. The appropriate cube within the guidance grid was localized and the underlying skin was prepped with Betadine. After administration of local anesthesia (5 mL 1% lidocaine for superficial and 10 mL 1% lidocaine with epinephrine for deeper), the needle guide block was placed into the guidance grid. An introducer and trocar were then placed into the breast from a lateral approach to the pre-determined depth of 3.1 cm. The trocar was removed and a localizing obturator was placed through the introducer. Axial images revealed the tip of the obturator to be located [at/anterior to/posterior to] the lesion. The patient was again removed from the bore of the magnet. The obturator was removed and a 10g SenoRx MRI compatible vacuum assisted core needle biopsy device was placed through the cannula to the appropriate depth. A total of 6 samples were obtained. A marking clip was then deployed. The patient tolerated the procedure and there were no immediate complications. Post-biopsy CC and ML views of the left breast were obtained for clip location. The clip is in the mid depth left breast slightly medial to the nipple near the clip from the prior 4:00 mass biopsy which revealed at least atypical ductal hyperplasia. IMPRESSION: MRI guided core needle biopsy of the left breast as described above. A post biopsy marking clip was placed. The pathology results are pending at time of dictation. PATHOLOGY: Fibrocystic changes with focal atypical lobular hyperplasia. Background florid epithelial hyperplasia. Microcalcifications identified. Negative for in situ and invasive carcinoma. Findings are concordant. The patient will be referred to [facility] for excision of this as well as the previously biopsied abnormal 4:00 lesion. This report was finalized on 06/03/2021 8:[address] Anabel Meier MD. us Fariba Wood MD IMG MRI ORDERABLES Final Resul t * Tissue Pathology Exam (06/01/2021 9:57 AM EDT) Case Report Surgical Pathology Report ? Case: [id number] ? Authorizing Provider: ??Anabel Meier MD ? Collected: ? 06/01/2021 09:57 AM ? Ordering Location: ? [facility] ?? Received: ?06/01/2021 01:41 PM ? MRI AT [facility] ? Pathologist: ? Roderick Leon MD ? Specimen: ?Breast, Left, Left SA Mass ? 06/02/2021 8:47 AM EDT [facility] Clinical Information Personal history of malignant neoplasm of breast, family history of malignant neoplasm of breast, benign mammary dysplasia of left breast, left subareolar mass 06/02/2021 8:47 AM EDT [facility] Final Diagnosis LEFT BREAST SUBAREOLAR MASS, MRI GUIDED CORE BIOPSY: Proliferative fibrocystic change with focal atypical lobular hyperplasia Background florid epithelial hyperplasia Microcalcification s identified Negative for in situ and invasive carcinoma 06/02/2021 8:47 AM [facility] Comment This report was sent to the radiologist at [facility] on 06/02/21. 06/02/2021 8:47 AM EDT [facility] Gross Description 1. Breast, Left. Received in formalin labeled left subareolar mass is a left MRI biopsy consisting of a 2.5 x 2 x 0.4 cm aggregate of fibroadipose breast tissue fragments, submitted entirely in block 1A. Time in formalin: 9:57 on 06/01/2021. Cold ischemic time is less than 60 minutes and total time in formalin is greater than 6 and less than 72 hours. LDP 06/02/2021 8:47 AM EDT [facility] Microscopic Description The slides are reviewed and demonstrate histopathologic features supporting the above rendered diagnosis. 06/02/2021 8:47 AM T [facility] Tissue Left breast structure / Unknown Collection / Unknown 06/01/2021 9:57 AM EDT 06/01/2021 1:41 PM EDT Comment:Left SA Mass Anabel Meier MD PATHOLOGY/CYTOLOGY ORDERABLES Final Result [facility]
[address] [place] [address], documented in this encounter Visit Diagnoses Diagnosis Personal history of malignant neoplasm of breast Family history of malignant neoplasm of breast Benign mammary dysplasia of left breast documented in this encounter Administered Medications Inactive Administered Medications - up to 3 most recent administrations Medication Order MAR Action Action Date Dose Rate Site gadobenate dimeglumine (MULTIHANCE) injection 16 mL 16 mL, Intravenous, Once in Imaging, On [place] 06/01/21 at 1141, For 1 dose, Vesicant; admin as rapid bolus; flush with 5 mL NS after admin or 20 mL for renal or aortoiliofemoral vasculature Given 06/01/2021 11:39 AM EDT 16 mL lidocaine (XYLOCAINE) 1 % injection 5 mL 5 mL, Injection, Once in Imaging, On [place] 06/01/21 at 1142, For 1 dose Given 06/01/2021 11:40 AM EDT 5 mL lidocaine 1% - EPINEPHrine 1:[id number] (XYLOCAINE W/EPI) 1 %-1:270855 injection 10 mL 10 mL, Injection, Once in Imaging, On [place] 06/01/21 at 1142, For 1 dose Given 06/01/2021 11:40 AM EDT 10 mL documented in this encounter Care Teams Pet Sitting Relationship Specialty Start Date End Date Alessandro Trejo MD PCP - General 10/12/14 documented as of this encounter
--- OUTSIDE RECORDS SUMMARY | 2024-01-22 19:51 | XMS_ITS | Encounter Summary ---
Author Organization [facility] Address [address] [place] [address] Care Team Providers Care Car Pincher Name Role Phone Alessandro Trejo MD Primary Care Provider + [phone] Encounter Details Date Type Department Care Team (Late st Contact Info) Description 12/26/2020 Telephone [place] [phone] Pippa Chamberlain RN Social History Tobacco Use [...] Encounter - Pippa Chamberlain RN - 12/26/2020 8:46 AM EST Pt notified of pathology results and recommendations. Verbalizes understanding. Denies discomfort. Denies signs and symptoms of infection. Patient desires first available surgeon between Dr Jose R Quijano and Dr DANITA Wood for surgical consult. Patient will be notified of appointment. Pt verbalized understanding. documented in this encounter Plan of Treatment Not on file documented as of this encounter Visit Diagnoses Not on filedocumented in this encounter Care Teams Car Pincher Relationship Specialty Start Date End Date Alessandro Trejo MD PCP - General 10/12/14 documented as of this encounter
--- OUTSIDE RECORDS SUMMARY | 2024-01-22 19:51 | XMS_ITS | Encounter Summary ---
Author Organization [facility] Address [address] [place] [address] Care Team Providers Care Inventory Checker Name Role Phone Alessandro Trejo MD Primary Care Provider + [phone] Reason for Referral * (Routine) - Closed Specialty Diagnoses / Procedures Referred By Tonie leigh Referred To Contact Radiology Diagnoses Abnormal mammogram Procedures Mammo Post Clip Placement Left Alessandro Trejo MD Phone: tel: fax: Referral ID Status Reason Start Date Expiration Date Visits Re quested Visits Authorized [id number] Closed 12/20/2020 12/20/2021 1 1 Reason for Visit * (Routine) - Closed Specialty Diagnoses / Procedures Referred By Tonie leigh Referred To Contact Radiology Diagnoses Abnormal mammogram Procedures Mammo Post Clip Placement Left Alessandro Trejo MD Phone: tel: fax: Referral ID Status Reason Start Date Expiration Date Visits Re quested Visits Authorized [id number] Closed 12/20/2020 12/20/2021 1 1 Encounter Details Date Type Department Care Team (Latest Contact Info) Description 12/20/2020 2:02 PM EDT - 12/20/2020 11:59 PM EDT Hospital Encounter [place] [phone] Abnormal mammogram Discharge Disposition: Home or Self [...] Comments MAMMO POST DEVICE PLACEMENT LEFT Routine 12/20/2020 3:12 PM EDT Abnormal mammogram documented in this encounter Results * Mammo Post Clip Placement Left (12/20/2020 3:12 PM EDT) Anatomical Region Laterality Modality Breast Left Mammography 12/20/2020 5:20 PM EDT Addenda Addendum by Anuradha Wood MD on 12/26/2020 10:14 AM EST PATHOLOGY: At least atypical ductal hyperplasia. Negative for invasive carcinoma. The pathology results are felt to be concordant with the imaging findings. RECOMMENDATION: ??Recommend surgical consultation for excisional biopsy. Also, recommend preoperative breast MRI. The patient will be notified of the results/recommendations by our breast imaging nurse. E: 12/23/2020 This report was finalized on 12/26/2020 10:[address] Anuradha Wood MD. Narrative 12/21/2020 10:21 AM EDT 14G ELEVATION VACUUM-ASSISTED ULTRASOUND GUIDED CORE BIOPSY LEFT BREAST: HISTORY: 0.6 cm mass 4:00 left breast. PROCEDURE: Written and verbal consent was obtained for ultrasound guided core biopsy of a 0.6 cm left breast mass located in the 4:00 position. Time out was observed to verify the patient's identity and correct location of the breast abnormality. The presence of the lesion was confirmed with ultrasound and a lateral approach was chosen. The breast was prepped and draped in the usual sterile fashion and 1% lidocaine with (3 cc) and without (4 cc) epinephrine was utilized for local anesthesia. A small skin incision was made with a scalpel and a 14-gauge needle was introduced into the breast under direct sonographic guidance. The needle was placed through the mass. A total of 4 core samples were obtained. The specimens were placed in formalin and forwarded to the pathology department. A post biopsy marking clip was placed. Post biopsy mammographic images were obtained. Upon completion of the procedure, compression was applied to the biopsy site until all appreciable bleeding subsided and a sterile dressing was applied. Post biopsy instructions were reviewed with the patient by our clinical breast imaging staff. A written copy of these instructions was also given to the patient. The patient tolerated the procedure well and no immediate complications occurred. SUMMARY: 14-gauge ultrasound guided and vacuum assisted core biopsy of a 0.6cm left breast mass located in the 4:00 position. ??A post biopsy marking clip was placed. Pathology results are pending. This report was finalized on 12/21/2020 10:[address] Anuradha Wood MD. Anuradha Wood MD IMG MAMMOGRAPHY ORDERABLES Ed ited Result - Final documented in this encounter Visit Diagnoses Diagnosis Abnormal mammogram Abnormal mammogram, unspecified documented in this encounter Care Teams Inventory Checker Relationship Specialty Start Date End Date Alessandro Trejo MD PCP - General 10/12/14 documented as of this encounter
--- OUTSIDE RECORDS SUMMARY | 2024-01-22 19:51 | XMS_ITS | Encounter Summary ---
Author Organization [facility] Address [address] [place] [address] Care Team Providers Care Jumpbasting Canvas Baster Name Role Phone Alessandro Trejo MD Primary Care Provider + [phone] Encounter Details Date Type Department Care Team (Late st Contact Info) Description 01/19/2021 Telephone [facility] MRI AT [address] [phone] Jody Dean Social History Tobacco [...] Telephone Encounter - Jody Dean - 01/19/2021 2:46 PM ESTSummary: Patient received results from MRI bilateral breast exam Patient received results from bilateral MRI breast exam. Second look ultrasound recommended. Will call patient back when appointment time for ultrasound is confirmed. Patient is aware that ultrasoundis recommended. documented in this encounter Plan of Treatment Not on file documented as of this encounter Visit Diagnoses Not on filedocumented in this encounter Care Teams Jumpbasting Canvas Baster Relationship Specialty Start Date End Date Alessandro Trejo MD PCP - General 10/12/14 documented as of this encounter
--- OUTSIDE RECORDS SUMMARY | 2024-01-22 19:51 | XMS_ITS | Encounter Summary ---
[facility] Address [address] [place] [address] Care Team Providers Care Supervisor Baking Name Role Phone Alessandro Trejo MD Primary Care Provider + [phone] Reason for Referral * Diagnostic Imaging (Routine) - Closed Specialty Diagnoses / Procedures Referred By Contac t Referred To Contact Diagnoses Nonischemic cardiomyopathy Dizziness Procedures Adult Transthoracic Echo Complete W/ Cont if Necessary Per Protocol Ivette Collins APRN [address] [facility] [address] [place] [address] Phone: tel: fax: [address] [phone] Phone: tel: Referral ID Status Reason Start Date Expiration Date Visits Re quested Visits Authorized [id number] Closed 06/01/2022 08/30/2022 1 1 Reason for Visit * Reason Comments nicm Encounter Details Date Type Department Care Team (Late st Contact Info) Description 05/10/2022 9:40 AM EDT Office Visit [facility] [address] [place] [phone] Ivette Collins APRN [address] [facility] [address] [place] [address] Nonischemic cardiomyopathy (Primary Dx); Tobacco use; Dizziness; Palpitations; Healthcare maintenance Social History Tobacco Use Types Packs/Day Years [...] Sign Reading Time Taken Comments Blood Pressure 110/70 05/10/2022 10:08 AM EDT Pulse 105 05/10/2022 10:08 AM EDT Temperature - - Respiratory Rate - - Oxygen Saturation 95% 05/10/2022 10:08 AM EDT Inhaled Oxygen Concentration - - Weight 80.6 kg (177 lb 9.6 oz) 05/10/2022 10:08 AM EDT Height 166.4 cm (5' 5.51 ) 05/10/2022 10:08 AM E DT Body Mass Index 29.09 05/10/2022 10:08 AM EDT documented in this encounter Progress Notes * Ivette Collins APRN - 05/10/2022 9:40 AM EDTAssociated Order(s): ECG 12 Lead Post-Procedure Diagnose(s): Nonischemic cardiomyopathy [facility] Cardiology Subjective: Encounter Date:05/10/2022 Patient ID: Anuradha Cui is a 56 y.o. female. Referring provider: No ref. provider found Reason for consultation: Chief Complaint Patient presents with ??? nicm PROBLEM LIST: 1. Nonischemic cardiomyopathy, presumed peripartum: [...] trace MR,TR, AR i. Echo 11/29/20, [facility]: EF 55 +/- 5%, no sig VHD. 2. Hyperlipidemia 3. Palpitations 1. Reports occasional fluttering and palpitations on 05/10/2022 4. Dizziness 1. Reported episode of dizziness that occurred on 05/08/2022 5. Right breast carcinoma: a. Diagnosis by abnormal mammogram. b. Mastectomy, 02/05/2009. c. Complication with methicillin-resistant Staphylococcus aureus infection and subsequent explantation of counter pocket sewer prosthesis. 6. Thoracic outlet syndrome. 7. Restless Leg Syndrome. 8. Tobacco Abuse 1. 1 ppd, started x 25 yrs (2021) 9. Surgical history: a. Endometriosis, exploratory laparoscopies in 1983 and 2003. b. Cholecystectomy in 2004. HPI: Anuradha Cui is a 56 y.o. female who presents today for follow-up of her nonischemic cardiomyopathy and cardiac risk factors. At last visit she was restarted on her bisoprolol. She denies any chest pain/pressure/tightness or heaviness. She denies worsening shortness of breath. She does get alittle winded with activities but attributes it to her asthma and smoking. She did have an episode 2 days ago after dropping her children off at school and busy working around the house she became dizzy. She overall did not feel well and had to lie down in the bed. By the next day she felt better and she has not had a reoccurrence. She has never had an episode such as this before. She did not pass out but did feel weak. She thinks it is due to stress as she has been under a lot of stress dealing with her mother's estate who is now in a group home. She is also raising 2 teenage children ages18 and 14. She has not had any recent blood work. She does report occasional palpitations where shewill feel her heart have hard thumps or flutter but she did not have the symptoms when she had her dizziness. Her palpitations have been unchanged over the years. She is a longtime smoker for over 20 years and smokes 1 pack/day. EKG today shows normal sinus rhythm with no acute ischemic changes. Medications and Allergies: Allergies Allergen Reactions ??? Bactrim [Sulfamethoxazole-Trimethoprim] Other (See Comments) pruritus ??? Codeine Nausea Only ??? Lisinopril Other (See Comments) fatigue ??? Sectral [Acebutolol Hcl] Other (See Comments) fatigue Current Outpatient Medications: ??? bisoprolol (ZEBeta) 5 MG tablet, Take 1 tablet by mouth Daily., Disp: 30 tablet, Rfl: 11 ??? cholecalciferol (VITAMIN D3) 25 MCG (1000 UT) tablet, Take 1 tablet by mouth Daily., Disp: , Rfl: ??? multivitamin with minerals tablet tablet, Take 1 tablet by mouth Daily., Disp: , Rfl: ??? vitamin B-12 (CYANOCOBALAMIN) 100 MCG tablet, Take 50 mcg by mouth Daily., Disp: , Rfl: Social History: Social History Tobacco Use ??? Smoking status: Every Day Packs/day: 1.00 Types: Cigarettes ??? Smokeless tobacco: Never Substance Use Topics ??? Alcohol use: No Family History: family history includes Arrhythmia in her mother; Breast cancer in her maternal aunt; Cancer in herfather; Ovarian cancer in her maternal aunt. She was adopted. Review of Systems: Pertinent positives in HPI The following portions of the patient's history were reviewed and updated as appropriate: allergies, current medications and problem list. Objective: Vitals: 05/10/22 1008 BP: 110/70 Pulse: 105 SpO2: 95% GENERAL: This is a well-developed, well-nourished, female who is in no acute distress. SKIN: Chillum and warm without rash or abnormality noted. [...] mood and affect. ECG 12 Lead Date/Time: 05/10/2022 10:45 AM Performed by: Ivette Collins APRN Authorized by: Ivette Collins APRN Comparison: compared with previous ECG from 07/27/2021 Similar to previous ECG Comparison to previous ECG: No change from prior EKG Rhythm: sinus rhythm BPM: 93 Clinical impression: normal ECG Comments: QT/QTc 344/427 MS Advance Care Planning ACP discussion was declined by the patient. Patient does not have an advance directive, informationprovided. ASSESSMENT ICD-10-CM ICD-9-CM 1. Nonischemic cardiomyopathy (HCC) I42.8 425.4 2. Tobacco use Z72.0 305.1 3. Dizziness R42 780.4 4. Palpitations R00.2 785.1 5. Healthcare maintenance Z00.00 V70.0 PLAN 1. Obtain CBC, TSH, CMP and lipid profile today 2. Obtain echocardiogram for dizzy episode. We will contact patient once results are known 3. If palpitations progress or worsen would recommend monitor but will defer for now. 4. Recommend smoking cessation 5. Return in about 6 months (around 11/10/2022), or if symptoms worsen or fail to improve, for f/u [facility] sooner as needed. Ivette Collins APRN documented in this encounter Plan of Treatment Not on file documented as of this encounter Procedures Procedure Name Priority Date/Time Associated Diagnosis Comments ECG 12-LEAD Routine 05/10/2022 Nonischemic cardiomyopathy documented in this encounter Results * ECHO COMPLETE W/ DOPPLER AND COLOR FLOW (06/07/2022 9:07 AM EDT) Target HR (85%) 138 bpm Max. Pred. HR (100%) 162 bpm EF(MOD-bp) 56.4 % LVIDd 4.6 cm LVIDs 2.8 cm IVSd 0.74 cm LVPWd 0.60 cm FS 38.3 % IVS/LVPW 1.23 cm ESV(cubed) 22.4 ml EDV(cubed) 95.4 ml LVOT area 3.1 cm2 LV mass(C)d 93.4 grams LVOT diam 1.98 cm EDV(MOD-sp2) 52.8 ml EDV(MOD-sp4) 91.2 ml ESV(MOD-sp2) 22.1 ml ESV(MOD-sp4) 40.4 ml SV(MOD-sp2) 30.7 ml SV(MOD-sp4) 50.8 ml EF(MOD-sp2) 58.1 % EF(MOD-sp4) 55.7 % MV E max kale 66.0 cm/sec MV A max kale 95.1 cm/sec MV dec time 0.24 msec MV E/A 0.69 LA ESV Index (BP) 18.4 ml/m2 Med Peak E' Kale 6.2 cm/sec Lat Peak E' Kale 6.5 cm/sec Avg E/e' ratio 10.39 SV(LVOT) 72.6 ml RV Base 3.3 cm RV Mid 2.20 cm RV Length 7.0 cm TAPSE (>1.6) 2.5 cm RV S' 12.4 cm/sec LA dimension (2D) 3.5 cm LV V1 max 103.3 cm/sec LV V1 max PG 4.3 mmHg LV V1 mean PG 2.37 mmHg LV V1 VTI 23.6 cm Ao pk kale 140.1 cm/sec Ao max PG 7.8 mmHg Ao mean PG 4.1 mmHg Ao V2 VTI 29.8 cm MORE(I,D) 2.44 cm2 MV P1/2t 57.0 msec MVA(P1/2t) 3.9 cm2 MV dec slope 446.5 cm/sec2 PA acc time 0.10 sec PA pr(Accel) 36.2 mmHg PI end-d kale 99.1 cm/sec Ao root diam 2.9 cm Ao root area (BSA corrected) 1.5 cm2 Ascending aorta 2.6 cm Echo EF Estimated 55.0 % Anatomical Region Laterality Modality Ultrasound Narrative 06/11/2022 4:26 PM EDT ?Left ventricular systolic function is normal. Estimated left ventricular EF = 55% ?Left ventricular diastolic function was normal. ?Trace mitral and tricuspid regurgitation. Left Ventricle Left ventricular systolic function is normal. Estimated left ventricular EF = 55% Normal left ventricular cavity size and wall thickness noted. All left ventricular wall segments contract normally. Left ventricular diastolic function was normal. Right Ventricle Normal right ventricular cavity size, wall thickness and systolic function noted. Left Atrium Normal left atrial size and volume noted. Right Atrium Normal right atrial cavity size noted. The inferior vena cava is normally sized. The diameter of the inferior vena cava is 1.9 cm. Normal IVC inspiratory collapse of greater than 50% noted. Mitral Valve The mitral valve is structurally normal with no significant stenosis present. Trace mitral valve regurgitation is present. Tricuspid Valve The tricuspid valve is structurally normal with no significant stenosis present. Trace tricuspid valve regurgitation is present. Insufficient TR velocity profile to estimate the right ventricular systolic pressure. Aortic Valve The aortic valve is structurally normal. The aortic valve appears trileaflet. No significant aortic valve regurgitation is present. No hemodynamically significant aortic valve stenosis is present. Pulmonic Valve The pulmonic valve is structurally normal with no significant stenosis present. There is trace pulmonic valve regurgitation present. Pericardium The pericardium is normal. There is no evidence of pericardial effusion. . Greater Vessels No dilation of the aortic root is present. No dilation of the sinuses of Valsalva is present. No dilation of the ascending aorta is present. Study Quality The study is technically good for diagnosis. Ivette Collins APRN CV ECHO ORDERABLES Final Result * (ABNORMAL) Lipid Panel (05/10/2022 11:09 AM EDT) Total Cholesterol 195 0 - 200 mg/dL 05/10/2022 2:33 PM EDT [facility] Triglycerides 140 0 - 150 mg/dL 05/10/2022 2:33 PM EDT [facility] HDL Cholesterol 50 40 - 60 mg/dL 05/10/2022 2:33 PM EDT [facility] LDL Cholesterol 120(H) 0 - 100 mg/dL 05/10/2022 2:33 PM EDT [facility] VLDL Cholesterol 25 5 - 40 mg/dL 05/10/2022 2:33 PM EDT [facility] LDL/HDL Ratio 2.34 05/10/2022 2:33 PM EDT [facility] Blood Venipuncture / Unknown 05/10/2022 11:09 AM EDT 05/10/2022 11:09 AM EDT [facility] - 05/10/2022 2:33 PM EDT Cholesterol [...] Very High ?>189 mg/dL us Ivette Collins STATISTICAL MACHINE MECHANIC LAB BLOOD ORDERABLES Madeline yohan Result [facility]
[address] [place] [address], * (ABNORMAL) Comprehensive Metabolic Panel (05/10/2022 11:09 AM EDT) Glucose 86 65 - 99 mg/dL 05/10/2022 2:33 PM EDT [facility] BUN 12 6 - 20 mg/dL 05/10/2022 2:33 PM EDT [facility] Creatinine 0.56(L) 0.57 - 1.00 mg/dL 05/10/2022 2:33 PM EDT [facility] Sodium 142 136 - 145 mmol/L 05/10/2022 2:33 PM EDT [facility] Potassium 4.1 3.5 - 5.2 mmol/L 05/10/2022 2:33 PM EDT [facility] Chloride 102 98 - 107 mmol/L 05/10/2022 2:33 PM EDT [facility] CO2 26.8 22.0 - 29.0 mmol/L 05/10/2022 2:33 PM EDT [facility] Calcium 10.1 8.6 - 10.5 mg/dL 05/10/2022 2:33 PM EDT [facility] Total Protein 7.0 6.0 - 8.5 g/dL 05/10/2022 2:33 PM EDT [facility] Albumin 4.4 3.5 - 5.2 g/dL 05/10/2022 2:33 PM EDT [facility] ALT (SGPT) 27 1 - 33 U/L 05/10/2022 2:33 PM EDT [facility] AST (SGOT) 17 1 - 32 U/L 05/10/2022 2:33 PM EDT [facility] Alkaline Phosphatase 99 39 - 117 U/L 05/10/2022 2:33 PM EDT [facility] Total Bilirubin 0.4 0.0 - 1.2 mg/dL 05/10/2022 2:33 PM EDT [facility] Globulin 2.6 gm/dL 05/10/2022 2:33 PM EDT [facility] A/G Ratio 1.7 g/dL 05/10/2022 2:33 PM EDT [facility] BUN/Creatinine Ratio 21.4 7.0 - 25.0 05/10/2022 2:33 PM EDT [facility] Anion Gap 13.2 5.0 - 15.0 mmol/L 05/10/2022 2:33 PM EDT [facility] eGFR 105.9 >60.0 mL/min/1.7 3 05/10/2022 2:33 PM EDT [facility] Blood Venipuncture / Unknown 05/10/2022 11:09 AM EDT 05/10/2022 11:09 AM EDT Narrative [facility] - 05/10/2022 2:33 PM EDT GFR Normal >60 Chronic Kidney Disease <60 Kidney Failure <15 [employer] STATISTICAL MACHINE MECHANIC LAB BLOOD ORDERABLES Madeline l Result Performing Organization Address City/[facility]/ZIP Co de Phone Number [facility]
[address] [place] [address], * TSH (05/10/2022 11:09 AM EDT) TSH 1.180 0.270 - 4.200 uIU/mL 05/10/2022 2:37 PM EDT [facility] Blood Venipuncture / Unknown 05/10/2022 11:09 AM EDT 05/10/2022 11:09 AM EDT [employer] STATISTICAL MACHINE MECHANIC LAB BLOOD ORDERABLES Madeline l Result [facility]
[address] [place] [address], * ECG 12-LEAD (05/10/2022) Narrative 05/10/2022 Ivette Collins APRN ? 05/10/2022 10:49 AM ECG 12 Lead Date/Time: 05/10/2022 10:45 AM Performed by: Ivette Collins APRN Authorized by: Ivette Collins APRN Comparison: compared with previous ECG from 07/27/2021 Similar to previous ECG Comparison to previous ECG: No change from prior EKG Rhythm: sinus rhythm BPM: 93 Clinical impression: normal ECG Comments: QT/QTc 344/427 MS Procedure Note Ivette Collins APRN - 05/10/2022 9:40 AM EDT [facility] Cardiology Subjective: Encounter Date:05/10/2022 Patient ID: Anuradha Cui is a 56 y.o. female. Referring provider: No ref. provider found Reason for consultation: Chief Complaint Patient presents with ? ? nicm PROBLEM LIST: 1. Nonischemic cardiomyopathy, presumed peripartum: [...] +/- 5%, no sig VHD. 2. Hyperlipidemia 3. Palpitations 1. Reports occasional fluttering and palpitations on 05/10/2022 4. Dizziness 1. Reported episode of dizziness that occurred on 05/08/2022 5. Right breast carcinoma: a. Diagnosis by abnormal mammogram. b. Mastectomy, 02/05/2009. c. Complication with methicillin-resistant Staphylococcus aureus infectionand subsequent explantation of counter pocket sewer prosthesis. 6. Thoracic outlet syndrome. 7. Restless Leg Syndrome. 8. Tobacco Abuse 1. 1 ppd, started x 25 yrs (2021) 9. Surgical history: a. Endometriosis, exploratory laparoscopies in 1983 and 2003. b. Cholecystectomy in 2004. HPI: Anuradha Cui is a 56 y.o. female who presents today for follow-upof her nonischemic cardiomyopathy and cardiac risk factors. At last visitshe was restarted on her bisoprolol. She denies any chestpain/pressure/tightness or heaviness. She denies worsening shortness ofbreath. She does get a little winded with activities but attributes it toher asthma and smoking. She did have an episode 2 days ago after droppingher children off at school and busy working around the house she becamedizzy. She overall did not feel well and had to lie down in the bed. Bythe next day she felt better and she has not had a reoccurrence. She hasnever had an episode such as this before. She did not pass out but didfeel weak. She thinks it is due to stress as she has been under a lot ofstress dealing with her mother's estate who is now in a group home. Sheis also raising 2 teenage children ages 18 and 14. She has not had anyrecent blood work. She does report occasional palpitations where she willfeel her heart have hard thumps or flutter but she did not have thesymptoms when she had her dizziness. Her palpitations have been unchangedover the years. She is a longtime smoker for over 20 years and smokes 1pack/day. EKG today shows normal sinus rhythm with no acute ischemicchanges. Medications and Allergies: Allergies Allergen Reactions ? ? Bactrim [Sulfamethoxazole-Trimethoprim] Other (See Comments) pruritus ? ? Codeine Nausea Only ? ? Lisinopril Other (See Comments) fatigue ? ? Sectral [Acebutolol Hcl] Other (See Comments) fatigue Current Outpatient Medications: ? ? bisoprolol (ZEBeta) 5 MG tablet, Take 1 tablet by mouth Daily., Disp:30 tablet, Rfl: 11 ? ? cholecalciferol (VITAMIN D3) 25 MCG (1000 UT) tablet, Take 1 tablet bymouth Daily., Disp: , Rfl: ? ? multivitamin with minerals tablet tablet, Take 1 tablet by mouthDaily., Disp: , Rfl: ? ? vitamin B-12 (CYANOCOBALAMIN) 100 MCG tablet, Take 50 mcg by mouthDaily., Disp: , Rfl: Social History: Social History Tobacco Use ? ? Smoking status: Every Day Packs/day: 1.00 Types: Cigarettes ? ? Smokeless tobacco: Never Substance Use Topics ? ? Alcohol use: No Family History: family history includes Arrhythmia in her mother; Breast cancer in hermaternal aunt; Cancer in her father; Ovarian cancer in her maternal aunt.She was adopted. Review of Systems: Pertinent positives in HPI The following portions of the patient's history were reviewed and updatedas appropriate: allergies, current medications and problem list. Objective: Vitals: 05/10/22 1008 BP: 110/70 Pulse: 105 SpO2: 95% GENERAL: This is a well-developed, well-nourished, female who is in noacute distress. SKIN: Chillum and warm without rash or abnormality noted. [...] mood and affect. ECG 12 Lead Date/Time: 05/10/2022 10:45 AM Performed by: Ivette Collins APRN Authorized by: Ivette Collins APRN Comparison: compared with previous ECG from 07/27/2021 Similar to previous ECG Comparison to previous ECG: No change from prior EKG Rhythm: sinus rhythm BPM: 93 Clinical impression: normal ECG Comments: QT/QTc 344/427 MS Advance Care Planning ACP discussion was declined by the patient. Patient does not have anadvance directive, information provided. ASSESSMENT ICD-10-CM ICD-9-CM 1. Nonischemic cardiomyopathy (HCC) I42.8 425.4 2. Tobacco use Z72.0 305.1 3. Dizziness R42 780.4 4. Palpitations R00.2 785.1 5. Healthcare maintenance Z00.00 V70.0 PLAN 1. Obtain CBC, TSH, CMP and lipid profile today 2. Obtain echocardiogram for dizzy episode. We will contact patient onceresults are known 3. If palpitations progress or worsen would recommend monitor but willdefer for now. 4. Recommend smoking cessation 5. Return in about 6 months (around 11/10/2022), or if symptoms worsen orfail to improve, for f/u eliza., sooner as needed. Ivette Collins APRN Ivette Collins APRN ECG ORDERABLES Final Res ult documented in this encounter Visit Diagnoses Diagnosis Nonischemic cardiomyopathy- Primary Other primary cardiomyopathies Tobacco use Dizziness Dizziness and giddiness Palpitations Healthcare maintenance Nonischemic cardiomyopathy Other primary cardiomyopathies Dizziness Dizziness and giddiness documented in this encounter Additional Health Concerns Infection Onset Date Last Indicated Resolved Time COVID Screen (preop/placement) 06/15/2021 07/10/2021 04/11/2023 12:11 PM EST documented as of this encounter Care Teams Supervisor Baking Relationship Specialty Start Date End Date Alessandro Trejo MD PCP - General 10/12/14 documented as of this encounter
--- OUTSIDE RECORDS SUMMARY | 2024-01-22 19:51 | XMS_ITS | Encounter Summary ---
Author Organization [facility] Address [address] [place] [address] Care Team Providers Care Junior [employer] Name Role Phone Alessandro Trejo MD Primary Care Provider + [phone] Reason for Visit * (Routine) - Closed Specialty Diagnoses / Procedures Referred By Contac t Referred To Contact Radiology Diagnoses Benign mammary dysplasia, unspecified laterality Family history of malignant neoplasm of breast Personal history of malignant neoplasm of breast Procedures Mammo Stereotactic Breast Device Placement Additional Without Bx Mammo Breast Placement Device Add Without Biopsy Fariba Wood MD Phone: tel: fax: Referral ID Status Reason Start Date Expiration Date Visits Re quested Visits Authorized [id number] Closed 07/03/2021 07/03/2022 1 1 Encounter Details Date Type Department Care Team (Latest Contact Info) Description 07/12/2021 8:15 AM EDT - 07/12/2021 11:59 PM EDT Hospital Encounter [facility] [address] [place] [address] Benign mammary dysplasia, unspecified laterality; Family history [...] Diagnosis Comments MAMMO STEREOTACTIC BREAST DEVICE PLACEMENT ADDITIONAL WO BX Routine 07/12/2021 9:55 AM EDT Benign mammary dysplasia, unspecified laterality Family history of malignant neoplasm of breast Personal history of malignant neoplasm of breast documented in this encounter Results * Mammo Stereotactic Breast Device Placement Additional Without Bx (07/12/2021 9:55 AM EDT) Anatomical Region Laterality Modality Breast [...] concordant. The patient is being followed by [facility]. This report was finalized on 07/18/2021 [...] documented as of this encounter Care Teams Junior [employer] Dba Relationship Specialty Start Date End Date Alessandro Trejo MD PCP - General 10/12/14 documented as of this encounter
--- OUTSIDE RECORDS SUMMARY | 2024-01-22 19:51 | XMS_ITS | Encounter Summary ---
[facility] Address [address] [place] [address] Care Team Providers Care Private Tutor Name Role Phone Alessandro Trejo MD Primary Care Provider + [phone] Encounter Details Date Type Department Care Team (Late st Contact Info) Description 02/23/2021 Telephone [place] [phone] Pippa Chamberlain RN Social History Tobacco Use [...] Telephone Encounter - Pippa Chamberlain RN - 02/23/2021 10:04 AM EST Pt notified of cytology results and recommendation. Verbalizes understanding. Denies discomfort. Denies signs and symptoms of infection. Questions answered, verbalized understanding. Patient stated she is aware she will be called for an appointment to follow up from breast MRI. documented in this encounter Plan of Treatment Not on file documented as of this encounter Visit Diagnoses Not on filedocumented in this encounter Care Teams Private Tutor Relationship Specialty Start Date End Date Alessandro Trejo MD PCP - General 10/12/14 documented as of this encounter
--- OUTSIDE RECORDS SUMMARY | 2024-01-22 19:51 | XMS_ITS | Encounter Summary ---
[facility] Organization [facility] Address [address] [place] [id number] Care Team Providers Care Data Transcriber Name Role Phone Alessandro Trejo MD Primary Care Provider + [phone] Reason for Referral * Diagnostic Imaging (Routine) - Closed Specialty Diagnoses / Procedures Referred By Contac t Referred To Contact Diagnoses Nonischemic cardiomyopathy Dizziness Procedures Adult Transthoracic Echo Complete W/ Cont if Necessary Per Protocol Ivette Collins APRN [address] [facility] [place] [address] Phone: tel: fax: [place] [address] Phone: tel: Referral ID Status Reason Start Date Expiration Date Visits Re quested Visits Authorized [id number] Closed 06/01/2022 08/30/2022 1 1 Reason for Visit * Diagnostic Imaging (Routine) - Closed Specialty Diagnoses / Procedures Referred By Contac t Referred To Contact Diagnoses Nonischemic cardiomyopathy Dizziness Procedures Adult Transthoracic Echo Complete W/ Cont if Necessary Per Protocol Ivette Collins APRN [address] [place] [address] Phone: tel: fax: [place] [phone] Phone: tel: Referral ID Status Reason Start Date Expiration Date Visits Re quested Visits Authorized [id number] Closed 06/01/2022 08/30/2022 1 1 Encounter Details Date Type Department Care Team (Late st Contact Info) Description 06/07/2022 8:00 AM EDT - 06/07/2022 11:59 PM EDT Hospital Encounter [facility] NONINVASIVE LAB [address] [place] [address] Ivette Collins, STEPHAN [address] [facility] [address] [place] [address] Nonischemic cardiomyopathy; Dizziness Discharge Disposition: Home or Self Care Social [...] Pressure 140/92 06/07/2022 9:07 AM EDT Pulse - - Temperature - - Respiratory Rate - - Oxygen Saturation - - Inhaled Oxygen Concentration - - Weight 80.6 kg (177 lb 11.1 oz) 06/07/2022 9:07 AM EDT Height 166.4 cm (5' 5.51 ) 06/07/2022 9:07 AM ED T Body Mass Index 29.11 06/07/2022 9:07 AM EDT documented in this encounter Medications at Time of Discharge [...] Procedure Name Priority Date/Time Associated Diagnosis Comments ECHO COMPLETE W/ DOPPLER AND COLOR FLOW Routine 06/07/2022 9:07 AM EDT Nonischemic cardiomyopathy Dizziness documented in this encounter Results * ECHO [...] Collins APRN CV ECHO ORDERABLES Final Result documented in this encounter Visit Diagnoses Diagnosis Nonischemic cardiomyopathy Other primary cardiomyopathies Dizziness Dizziness and giddiness documented in this encounter Additional Health Concerns Infection Onset Date Last Indicated Resolved Time COVID Screen (preop/placement) 06/15/2021 07/10/2021 04/11/2023 12:11 PM EST documented as of this encounter Care Teams Data Transcriber Relationship Specialty Start Date End Date Alessandro Trejo MD PCP - General 10/12/14 documented as of this encounter
--- OUTSIDE RECORDS SUMMARY | 2024-01-22 19:51 | XMS_ITS | Encounter Summary ---
Author Organization [facility] Address [address] [place] [address] Care Team Providers Care Apple Sorter Name Role Phone Alessandro Trejo MD Primary Care Provider + [phone] Reason for Referral * Diagnostic Imaging (Routine) - Closed Specialty Diagnoses / Procedures Referred By Tonie leigh Referred To Contact Radiology Diagnoses Personal history of malignant neoplasm of breast Procedures MRI breast bilateral diagnostic w wo contrast Fariba Wood MD Phone: tel: fax: Referral ID Status Reason Start Date Expiration Date Visits Re quested Visits Authorized [id number] Closed 01/06/2021 04/05/2021 1 1 Reason for Visit * Diagnostic Imaging (Routine) - Closed Specialty Diagnoses / Procedures Referred By Tonie leigh Referred To Contact Radiology Diagnoses Personal history of malignant neoplasm of breast Procedures MRI breast bilateral diagnostic w wo contrast Fariba Wood MD Phone: tel: fax: Referral ID Status Reason Start Date Expiration Date Visits Re quested Visits Authorized [id number] Closed 01/06/2021 04/05/2021 1 1 Encounter Details Date Type Department Care Team (Latest Contact Info) Description 01/18/2021 8:15 AM EST - 01/18/2021 11:59 PM EST Hospital Encounter [facility] MRI AT [address] [address] Fariba Wood MD [address] [place] [address] Personal history of malignant neoplasm of breast [...] Priority Date/Time Associated Diagnosis Comments MRI BREAST BILATERAL DIAGNOSTIC W WO CONTRAST(INACTIVE) Routine 01/18/2021 9:09 AM EST Personal history of malignant neoplasm of breast documented in this encounter Results * (ABNORMAL) MRI Breast Bilateral Diagnostic With & Without Contrast (01/18/2021 9:09 AM EST) Anatomical Region Laterality Modality Breast Bilateral Magnetic Resonan ce 01/19/2021 9:41 AM EST Impressions 01/19/2021 10:33 AM EST No residual enhancement surrounding the biopsy clip at the left 4:00 position. No other dominant concerning enhancement in the left breast or in the residual tissue on the right. There is a dominant 5 mm focus of enhancement in the subareolar left region 6:00 position as described in the body of the report. Ultrasound is recommended. A right level 1 axillary lymph node is slightly more prominent than on prior exams and focused ultrasound is recommended as well. Otherwise unremarkable examination. RECOMMENDATIONS: Focused subareolar ultrasound on the left of the dominant focus of enhancement. Focused ultrasound of a right axillary level 1 lymph node. BI-RADS CATEGORY: 0 INCOMPLETE, NEEDS ADDITIONAL IMAGING EVALUATION DESCRIBED FINAL MRI RESULTS AND RECOMMENDATIONS WILL BE CALLED TO THE PATIENT BY A BREAST CARE NURSE. Physicians Order Diagnostic Breast Ultrasound Diagnosis: Abnormal MRI This report was finalized on 01/19/2021 10:[address] Anabel Meier MD. Narrative 01/19/2021 10:33 AM EST BILATERAL BREAST MRI HISTORY: 55-year-old female with a history of right mastectomy in 2009 followed by right saline implant placement. 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 Most recently, the patient has been diagnosed with at least atypical ductal hyperplasia following biopsy under ultrasound guidance of a 6 mm mass in the 4:00 position of the left breast anteriorly. Preoperative MRI was recommended. TECHNIQUE: ??MRI was performed on a 1.5 Melina magnet utilizing an 8 channel Sentinelle breast coil. ??Pre-contrast spin-echo T1 weighted and T2 weighted sequences were obtained in the axial plane. ??Routine dynamic images were performed following the administration of 14 ml of Multihance contrast. ??Four postcontrast runs were obtained. No contrast complications occurred. ??Delayed high resolution post contrast T1 weighted sagittal images were also obtained. ??A CAD system ([employer]) was utilized for data analysis. ?? COMPARISON: Prior mammography, most recently 12/20/2020 and 11/15/2020 FINDINGS: Contrast is present within the heart and great vessels. A right subpectoral saline implant replaces the majority of the breast parenchymal tissue on the right. The only significant residual tissue is the subcutaneous fat. There is mild background contrast enhancement. By MRI the left breast is mainly fatty replaced and the residual tissue on the right is subcutaneous fat. Right breast: Skin enhancement is seen in the posterior superior right breast on axial images 167 through 171 with moderate increased uptake and mainly plateau late phase kinetics. This is of uncertain significance but could represent inflammation, injury, or residual postradiation change. This also extends into the medial skin. The right subpectoral saline implant is intact. The right breast residual tissue is unremarkable. Left breast: A dominant focus of contrast enhancement is seen in the subareolar region. (Axial 254) This appears to have nonenhancing septations and may represent a small fibroadenoma. This measures only 5 mm and has no significant enhancement on kinetic analysis. Artifact from the previously placed clip at the 4:00 position as well as artifact from a clip in the central posterior breast are noted. There is no residual surrounding enhancement. A slightly prominent level 1 axillary lymph node on the right is present.. This does appear to have a fatty hilum without a thickened cortex and was present on the prior examination. It is slightly more prominent on today's exam than previously. There is no adenopathy. Right middle lobe atelectasis or scarring is present. There is also slight left upper lobe atelectasis. us Fariba Wood MD IMG MRI ORDERABLES Final Resul t documented in this encounter Visit Diagnoses Diagnosis Personal history of malignant neoplasm of breast documented in this encounter Administered Medications Inactive Administered Medications - up to 3 most recent administrations Medication Order MAR Action Action Date Dose Rate Site gadobenate dimeglumine (MULTIHANCE) injection 14 mL 14 mL, Intravenous, Once in Imaging, On Sat01/18/21 at 0912, For 1 dose, Vesicant; admin as rapid bolus; flush with 5 mL NS after admin or 20 mL for renal or aortoiliofemoral vasculature Given 01/18/2021 9:10 AM EST 14 mL documented in this encounter Care Teams Apple Sorter Relationship Specialty Start Date End Date Alessandro Trejo MD PCP - General 10/12/14 documented as of this encounter
--- OUTSIDE RECORDS SUMMARY | 2024-01-22 19:51 | XMS_ITS | Encounter Summary ---
Author Organization [facility] Address [address] [place] [address] Care Team Providers Care Industrial Analyst Name Role Phone Alessandro Trejo MD Primary Care Provider + [phone] Reason for Referral * Diagnostic Imaging (Routine) - Closed Specialty Diagnoses / Procedures Referred By Tonie leigh Referred To Contact Radiology Diagnoses Family history of malignant neoplasm of breast Personal history of malignant neoplasm of breast Benign mammary dysplasia of left breast Procedures Mammo Post Clip Placement Left Fariba Wood MD Phone: tel: fax: Referral ID Status Reason Start Date Expiration Date Visits Re quested Visits Authorized [id number] Closed 02/27/2021 02/27/2022 1 1 Reason for Visit * Diagnostic Imaging (Routine) - Closed Specialty Diagnoses / Procedures Referred By Tonie leigh Referred To Contact Radiology Diagnoses Family history of malignant neoplasm of breast Personal history of malignant neoplasm of breast Benign mammary dysplasia of left breast Procedures Mammo Post Clip Placement Left Fariba Wood MD Phone: tel: fax: Referral ID Status Reason Start Date Expiration Date Visits Re quested Visits Authorized [id number] Closed 02/27/2021 02/27/2022 1 1 Encounter Details Date Type Department Care Team (Latest Contact Info) Description 06/01/2021 10:09 AM EDT - 06/01/2021 11:59 PM EDT Hospital Encounter [facility] [place] [place] [address] Family history of malignant neoplasm of breast; Personal history of malignant neoplasm of breast; Benign [...] Comments MAMMO POST DEVICE PLACEMENT LEFT Routine 06/01/2021 10:23 AM EDT Family history of malignant neoplasm of breast Personal history of malignant neoplasm of breast Benign mammary dysplasia of left breast documented in this encounter Results * Mammo Post Clip Placement Left (06/01/2021 10:23 AM EDT) Anatomical Region Laterality Modality Breast Left Mammography 06/01/2021 10:5 1 AM EDT Impressions 06/03/2021 [...] concordant. The patient will be referred to [facility] for excision of this as well [...] in the determination of lesion location. ??An [employer] CAD system was utilized for biopsy planning. [...] ??The obturator was removed and a 10g [employer] NewsoRx MRI compatible vacuum assisted core needle biopsy [...] in the determination of lesion location. An [employer] CAD system was utilized for biopsy planning. [...] concordant. The patient will be referred to [facility] for excision of this as well as the previously biopsied abnormal 4:00 lesion. This report was finalized on 06/03/2021 8:[address] Anabel Meier MD. Fariba Wood MD IMG MAMMOGRAPHY ORDERABLES Fin al Result documented in this encounter Visit Diagnoses Diagnosis Family history of malignant neoplasm of breast Personal history of malignant neoplasm of breast Benign mammary dysplasia of left breast documented in this encounter Care Teams Industrial Analyst Relationship Specialty Start Date End Date Alessandro Trejo MD PCP - General 10/12/14 documented as of this encounter
--- OUTSIDE RECORDS SUMMARY | 2024-01-22 19:52 | XMS_ITS | Encounter Summary ---
[facility] Address [address] [place] [address] Care Team Providers Care Modeling Teacher Name Role Phone Alessandro Trejo MD Primary Care Provider + [phone] Encounter Details Date Type Department Care Team (Late st Contact Info) Description 03/08/2009 Conversion Encounter [facility] HISTORICAL CONV [address] [place] [address] Interface, See Report Social History Tobacco Use Types Packs/Day Years Used Date Smoking Tobacco: Never Assessed Comments Unknown Sex and Gender Information Value Date Recorded Sex Assigned at Not on file Legal Sex Female 10:15 AM EDT Gender Identity Not on file Sexual Orientation Not on file documented as of this encounter Plan of Treatment Not on file documented as of this encounter Procedures Procedure Name Priority Date/Time Associated Diagnosis Comments CONVERTED (HISTORICAL) SURGICAL PATHOLOGY Routine 03/08/2009 6:15 AM EST documented in this encounter Results * Converted Surgical Pathology (03/08/2009 6:15 AM EST) 03/08/2009 6:15 AM EST [facility] - 02/22/2010 11:23 AM EST [facility] [address] [place] [address] SURGICAL PATHOLOGY REPORT Patient Name: ANURADHA CRONIN MR#: [id number] : 1965 Gender: F Ordering Physician: GAVIN BEACH Copy To: KATHI AnnY ANUJ Location: 5209-1 Collected: 03/08/2009 Received: 03/08/2009 Reported: 02/22/2010 Clinical Diagnosis and History 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 ?? Final Diagnosis ADDENDUM: ??Template updated to reflect IHC results on biopsy [id number]. ??/MHB 1. RIGHT SENTINEL LYMPH NODES: ? No metastasis identified (0/2). 2. RIGHT BREAST, SIMPLE MASTECTOMY: ? Residual foci of low and intermediate grade ductal carcinoma in situ. ??No invasive tumor identified. ??Two additional lymph nodes negative for metastasis. MHB/rw BREAST DCIS (LUMPECTOMY/MASTECTOMY) SPECIMEN TYPE/PROCEDURE: ??Simple mastectomy with sentinel node sampling LYMPH NODE SAMPLING: ??0/2 SPECIMEN INTEGRITY: ??intact SPECIMEN SIZE (3 DIMENSIONS): ??20.5 x 19.0 x 5.5cm LATERALITY: ??Right TUMOR SITE: ??Right breast SIZE (Extent) OF DCIS COMPONENT (greatest dimension): ?? HISTOLOGIC TYPE: ??DCIS NUCLEAR GRADE: ??Low and intermediate grade NECROSIS (PRESENT/ABSENT): ??absent MARGIN STATUS (SPECIFY MARGIN): ??Free DISTANCE FROM MARGIN: ??At least 1.5cm LYMPH NODE STATUS: ??0/4 ESTROGEN RECEPTOR STATUS (IHC): ??Positive per [facility] Case [id number] PROGESTERONE RECEPTOR STATUS (IHC): ??Positive per [facility] Case [id number] ADDITIONAL PATHOLOGIC FINDINGS: n/a ?? OTHER STUDIES: ??n/a AJCC PATHOLOGIC STAGE: ??(COMPLETED BY PATHOLOGIST, BASED ONLY ON TISSUE FINDINGS, MORE EXTENSIVE DISEASE MAY NOT BE KNOWN TO THE PATHOLOGIST) pT= ??is pN= ??0 pM= ??0 AJCC PATHOLOGIC STAGE: ??0 Amendments: Amended: ??03/11/2009 by Maritza Dean Reason: Immunohistochemical Results ? Previous Signout Date: ??03/10/2009 Amended: ??02/22/2010 by Maritza Dean Reason: REVISED TEMPLATE ? Previous Signout Date: ??03/11/2009 Electronically Signed Out By JULI SANTOS Specimen(s) Received: 1: Lymph Node, [place] Node 2: Breast, simple mastectomy w/o lymph nodes Gross Description Specimen 1 received fresh for frozen section labeled sentinel node biopsy right are two dawkins/pink lymph nodes measuring 2.0 and 2.5 cm in greatest dimension which are sectioned and submitted entirely for frozen section, now resubmitted in cassettes 1A-1B. ?? Specimen 2 received in formalin labeled right breast is a 673 gram per the operating room scale, 20.5 x 19.0 x 5.5 cm right simple mastectomy specimen. The specimen is partially surfaced by a 9.5 x 4.7 cm dawkins wrinkled skin ellipse. The everted nipple measures 1 cm in diameter. ??The margins are inked as follows: superficial margin green, deep margin black, and the specimen is sectioned to reveal a 0.5 x 0.4 x 0.4 cm area of edwards yellow fat necrosis and a metal clip. The clip is 1.5 cm from the superficial margin and greater than 2.5 cm from the deep margin. ??No definitive invasive tumor is identified and the clip is greater than 5 cm from the superior inferior medial and lateral margins. ??No additional biopsy sites or invasive tumor is grossly identified. ??Ui Designer sections are placed in formalin at 12:20 p.m. ??Summary of sections: ??2A-2B ??fat necrosis to include clip and surrounding superficial resection margins; 2C ??deep margin closest to clip; 2D-2F ??random sections of breast tissue taken predominantly toward the inferior aspect; 2G ??pest control service representative section of nipple. ??Added sections of second possible biopsy site in H-L. ??HBM/sk Microscopic Description The two sentinel lymph nodes show no metastasis. The mastectomy shows breast and adipose tissue with evidence of prior biopsy hemorrhage and chronic inflammation. ??[place] additional benign lymph nodes are seen. ??The nipple is also unremarkable. ??In sections including added sections, scattered foci of DCIS are seen with low grade solid and cribriform configurations and focal intermediate grade with necrosis and calcifications. No invasive carcinoma is identified. ??MHB/rw Previous Pertinent History [id number], 01/18/09. 1. RIGHT BREAST STEREOTACTIC BIOPSY SITE A: Proliferative fibrocystic changes for microcalcifications. 2. RIGHT BREAST STEREOTACTIC BIOPSY SITE B: Low to intermediate grade ductal carcinoma in situ with focal necrosis and microcalcifications. (B) Procedures/Addenda us See Report Interface PATHOLOGY/CYTOLOGY ORDERABL ES Final Result [facility] [address] [place] [address], documented in this encounter Visit Diagnoses Not on filedocumented in this encounter Care Teams Modeling Teacher Relationship Specialty Start Date End Date Alessandro Trejo MD PCP - General 10/12/14 documented as of this encounter
--- OUTSIDE RECORDS SUMMARY | 2024-01-22 19:52 | XMS_ITS | Encounter Summary ---
Author Organization [facility] Address [address] [place] [address] Care Team Providers Care Shoe Stamper Name Role Phone Alessandro Trejo MD Primary Care Provider + [phone] Encounter Details Date Type Department Care Team (Late st Contact Info) Description 05/06/2013 Office Visit Converted [facility] [address] [facility] [address] [place] [address] Cindy Allison MD [address] [facility] [address] [place] [address] Social History Tobacco Use Types Packs/Day Years Used Date Smoking Tobacco: Never Assessed Comments Unknown Sex and Gender Information Value Date Recorded Sex Assigned at Not on file Legal Sex Female 10:15 AM EDT Gender Identity Not on file Sexual Orientation Not on file documented as of this encounter Progress Notes * Cindy Allison MD - 05/06/2013 10:00 AM EDT LOCATION: [place] Office PRIMARY CARE PHYSICIAN: Alessandro Trejo MD ONCOLOGIST: Abhay Velasquez MD INSTRUMENTAL TEACHER: Sonu Saldana MD IDENTIFICATION: The patient is a 47-year-old single white female who is unemployed, and is a resident of [place], [place]. PROBLEM LIST: 1. Nonischemic cardiomyopathy. a. Echocardiogram, 2004, revealing mild intra-atrial septal aneurysm, normal valves and ejection fraction of 50% to 55%. Echocardiogram, November 2007, Dr. Allison, revealing mild mitral regurgitation, mild tricuspid regurgitation, normal ejection fraction with frequent premature ventricular contractions. No evidence of atrial septal defect. Limited 2-dimensional echocardiogram revealing ejection fraction of 25% to 30%. Echocardiogram, 06/28/2008: Left ventricular ejection fraction of 40% to 45% with mild mitral regurgitation and mild tricuspid regurgitation. Echocardiogram, 09/30/2008: Left ventricular ejection fraction of 45% to 40% with trace mitral regurgitation and trace tricuspid regurgitation. Stress echocardiogram 02/06/2010: Expected exercise duration of 8 minutes and 30 seconds with an actual duration of 6 minutes and 20 seconds. Normal left ventricular systolic function and wall motion. Echocardiogram 04/07/2013: LVEF 55% to 60% with trace MR, trace TR. 2. Lower extremity edema. , A1. a. Due date 04/24/2008. Delivered on April 16. 4. Right breast carcinoma. a. Diagnosis by abnormal mammogram. Mastectomy, 02/05/2009. Complication with methicillin-resistant Staphylococcus aureus infection and subsequent explantationof regional coordinator prosthesis. 5. Thoracic outlet syndrome. Surgical history. a. Endometriosis, exploratory laparoscopies in 1983 and 2003. Cholecystectomy in 2004. ALLERGIES/DRUG INTOLERANCES: 1. BACTRIM (pruritus) 2. CODEINE (nausea) 3. SECTRAL (fatigue) 4. LISINOPRIL (fatigue) CURRENT MEDICATIONS: 1. Amitiza 24 mcg b.i.d. 2. Maxzide 37.5/25 mg p.r.n. 3. Carvedilol 3.125 mg b.i.d. 4. Neurontin 300 mg nightly 5. Percocet 10 mg q6-8 h. p.r.n. SUBJECTIVE: The patient returns for followup and she is doing reasonably well. She is tired and believes this may be related to restless leg syndrome. She states that she does not sleep well at night. She was happy to find out that her echocardiogram was normal. She does continue to smoke one-half [id number] but that is not new for her. Her lower extremity edema is under better control with Maxzide, but she continues to have the feeling that her abdomen is distended. OBJECTIVE: VITAL SIGNS: Blood pressure is 118/80. Heart rate is 83 and regular. Weight 169 pounds. Height 5 feet 5 inches with a BMI of 28.5. HEART: Regular rate and rhythm with normal S1 and S2. There is no murmur, gallop, or rub appreciated. LUNGS: Clear to auscultation bilaterally without wheezes, rhonchi, or rales noted. NECK: The jugular venous pressure is within normal limits. Carotid upstrokes are 2+ and symmetricalwithout bruits. EXTREMITIES: There is no evidence of peripheral edema. IMPRESSION: 1. Nonischemic cardiomyopathy with a left ventricular ejection fraction of 55% to 60% and appropriate improvement in all myocardial segments with exercise based on stress echocardiogram, 04/07/2013. 2. Recent symptoms of shortness of breath, fatigue, and increasing lower extremity edema. RECOMMENDATIONS: 1. BMP today. 2. Sleep study. 3. Consider increasing her Maxzide if her BMP will allow. 4. Followup here in 6 weeks or sooner if needed. Cindy Allison MD, [facility]:rxcm cc: MD Abhay Crow MD Scott Guiler, MD [facility] Electronically signed by:Cindy Allison MD May 19 2013 12:25PM EST documented in this encounter Plan of Treatment Not on file documented as of this encounter Visit Diagnoses Not on filedocumented in this encounter Care Teams Shoe Stamper Relationship Specialty Start Date End Date Alessandro Trejo MD PCP - General 10/12/14 documented as of this encounter
--- OUTSIDE RECORDS SUMMARY | 2024-01-22 19:52 | XMS_ITS | Encounter Summary ---
Author Organization [facility] Address [address] [place] [address] Care Team Providers Care Sheet Metal Roofer Name Role Phone Lisa Trejo MD Primary Care Provider + [phone] Encounter Details Date Type Department Care Team (Late st Contact Info) Description 02/07/2012 Historical Mammograp hy Encounter [facility] [place] [place] [address] [facility] [place] [place] [address] Interface, See Report Social History [...] Name Priority Date/Time Associated Diagnosis Comments MAMMO HISTORICAL RESULT Routine 02/07/2012 11:47 AM EST documented in this encounter Results * MAMMO HISTORICAL RESULT (02/07/2012 11:47 AM EST) Anatomical Region Laterality Modality Breast Mammography 02/07/2012 11:4 7 AM EST Narrative 02/08/2012 7:32 PM EST ?[facility] ? [address] ??[place], [place] [address] ? NAME: ANURADHA CRONIN ? : ??[birth year] ??MR#: [id number] ? LOC: ?? DIS ? AGE: 46Y ?? Pt type: CO ?Exam Date: 02/07/12 1149 ? SEX: F ?? AN#:[id number] ?Ck-in#: [id number] ? LISA TREJO W ? [address] ? [address] ? [place] ?[place] ?[address] ? Chk-in # ?? Order ?Exam ?[id number] ?? 0001 ? [id number] ??BC MAMM DIAG UNILAT DIG PNL*L ? Ord Diag: SCREENING ? LEFT DIAGNOSTIC MAMMOGRAM ?? HISTORY: 46-year-old patient with a history of right mastectomy in 2009. A left breast stereotactic biopsy was performed on 05/26/10 for an asymmetry in the left upper-outer quadrant. Final pathology results revealed nonproliferative fibrocystic change and background fibrous tissue. The patient did not return for her recommended left mammographic followup due in November 2010. The patient has no current left breast complaints. She underwent left reduction mammoplasty in 2010. ?? TECHNIQUE: Routine left CC and MLO digital mammographic images were obtained and supplemented with left CC and ML magnification views. ?? COMPARISON: 05/26/10, 05/03/10, 01/05/10, 07/04/09, 01/18/09, 12/24/08 and 12/07/08. ?? FINDINGS: There are scattered fibroglandular densities in the left breast. The asymmetry in the left upper outer quadrant that is status post benign stereotactic biopsy is improved in appearance on CC imaging. The remaining left fibroglandular pattern is stable. There are two postbiopsy marking clips in the left 2:00-3:00 region. There are new calcifications in the 11:00/periareolar region. Magnification imaging is suggestive of dystrophic/skin calcifications associated with postreduction scarring. Short-interval mammographic followup is recommended in six months. ?? IMPRESSION: 1. Improvement in the biopsy-proven benign asymmetry in the deep left ? FINAL ?CONTINUED ?Page ??1 ? RADIOLOGY REPORT ?[facility] ? [address] ??[place], [place] [address] ? NAME: ANURADHA CRONIN ? : ??[birth year] ??MR#: [id number] ? LOC: ?? DIS ? AGE: 46Y ?? Pt type: CO ?Exam Date: 02/07/121148 ? SEX: F ?? AN#:[id number] ?Ck-in#: [id number] ? ANDRES,LISA W ? [address] ? [address] ? [place] ?[place] ?[address] ? Checkin-Exam Code Summary ? [id number] 2:00 region. 2. New calcifications in the left 11:00/periareolar position felt to represent developing dystrophic/skin calcifications within the periareolar reduction scar. ?? RECOMMENDATION: Short-interval left mammographic followup in six ??months utilizing routine left CC and MLO views and left CC and ML magnification views. ?? BI-RADS CATEGORY III, PROBABLY BENIGN. ?? iCAD was utilized. ?? The standard false-negative rate of mammography is between 10 and 25%. Complex patterns or increased breast density will markedly elevate the false-negative rate of mammography. ? A results letter, in lay terminology, will be given to the patient at the conclusion of the exam. ?/READ BY/ CORA YAO ?/Released By/ CORA YAO ?Released By Date/Time: ??02/08/12 1757 ?Drop Machine Operator: ??LS ? FINAL ? Page ??2 ? RADIOLOGY REPORT us See Report Interface IMG MAMMOGRAPHY ORDERABLES Final Result documented in this encounter Visit Diagnoses Not on filedocumented in this encounter Care Teams Sheet Metal Roofer Relationship Specialty Start Date End Date Lisa Trejo MD PCP - General 10/12/14 documented as of this encounter
--- OUTSIDE RECORDS SUMMARY | 2024-01-22 19:52 | XMS_ITS | Encounter Summary ---
Author Organization [facility] Address [address] [place] [address] Care Team Providers Care Occupational Health Nurse Name Role Phone Alessandro Trejo MD Primary Care Provider + [phone] Encounter Details Date Type Department Care Team (Late st Contact Info) Description 04/16/2008 Conversion Encounter [facility] HISTORICAL CONV [address] [facility] [place] [address] Interface, See Report Social History [...] Diagnosis Comments CONVERTED (HISTORICAL) SURGICAL PATHOLOGY Routine 04/16/2008 10:50 AM EST documented in this encounter Results * Converted Surgical Pathology (04/16/2008 10:50 AM EST) 04/16/2008 10:5 0 AM EST [facility] LABORATORY - 04/17/2008 8:45 AM EST [facility] SURGICAL PATHOLOGY REPORT Patient Name: ANURADHA CRONIN MR#: [id number] : 1965 Gender: F Ordering Physician: CHEYANNE HERRERA :10C Copy To: ?? Location: [place] [address] Collected: 04/16/2008 Received: 04/16/2008 Reported: 04/17/2008 Clinical Diagnosis and History The working history is multiparity desires surgical sterilization. Final Diagnosis BILATERAL TUBAL LIGATION: ? Completely cross sectioned fallopian tubes. ??[place] [place] Amendments: Electronically Signed Out By BENJIE FRANCISCO Specimen(s) Received: Fallopian tube, sterlization Gross Description The specimen, labeled segments of right and left fallopian tubes, received in formalin, consists of are two dawkins/pink portions of fallopian tube undesignated as to laterality. ??Each tube is surfaced by dawkins/pink smooth glistening serosa and averages 1.5 cm in length by 0.8 cm in diameter. ??One of the tubes is inked and each shows a central lumen averaging 0.1 cm in diameter. ??The specimen is submitted entirely in one cassette. ??/mbc Microscopic Description Micro is performed. ??RLL/mbc Procedures/Addenda us See Report Interface PATHOLOGY/CYTOLOGY [place] [address], documented in this encounter Visit Diagnoses Not on filedocumented in this encounter Care Teams Occupational Health Nurse Relationship Specialty Start Date End Date Alessandro Trejo MD PCP - General 10/12/14 documented as of this encounter
--- OUTSIDE RECORDS SUMMARY | 2024-01-22 19:52 | XMS_ITS | Encounter Summary ---
Author Organization [facility] Address [address] [place] [address] Care Team Providers Care Electroplating Worker Name Role Phone Unavailable Primary Care Provider Unavailabl e Encounter Details Date Type Department Care Team (Late st Contact Info) Description 12/09/2013 12:56 PM EDT - 12/09/2013 11:59 PM EDT Hospital Encounter [facility] [address] [place] [address] [address] [place] [address] Alessandro Trejo MD [address] [facility] [address] [place] [address] Social History Tobacco Use Types Packs/Day Years [...] Priority Date/Time Associated Diagnosis Comments US BREAST UNILATERAL Routine 12/09/2013 1:44 PM EDT MAMMO DIAGNOSTIC UNILATERAL Routine 12/09/2013 12:59 PM EDT documented in this encounter Results * ULTRASOUND BREAST UNILATERAL (12/09/2013 1:44 PM EDT) Anatomical Region Laterality Modality Breast Ultrasound 12/09/2013 1:44 PM EDT Narrative 12/09/2013 4:35 PM EDT LEFT DIAGNOSTIC DIGITAL MAMMOGRAM AND LEFT BREAST ULTRASOUND CLINICAL INDICATION: ??48-year-old patient presents for 6 month mammographic followup of the left breast as well as a followup left breast ultrasound. She has no reported breast complaints. She is status post a right breast mastectomy in 2008. She underwent a left breast reduction surgery in 2009 and is also status post a benign ultrasound guided core biopsy on the left as well as a benign stereotactic core biopsy on the left. TECHNIQUE: Routine digital CC and MLO views of the left breast were performed and supplemented with left CC and ML magnification views. Also, followup ultrasound imaging of the left 2:00 position was performed. COMPARISON: 06/09/2013, 09/03/2012, 02/07/2012, 05/26/2010, 05/03/2010. FINDINGS: ??There are scattered areas of fibroglandular density. The fibroglandular pattern appears stable compared to the prior exam. This includes the nodularity being followed in the anterior left breast. The previously noted grouped punctate and coarse calcifications in the anterior 12:00 position are stable. Likely some of these are within the skin. No spiculated masses or new areas of calcifications are identified. The 2 core biopsy sites located posteriorly are stable. LEFT BREAST ULTRASOUND: Followup ultrasound imaging shows no significant change in the previously noted small hypoechoic mass located in the 2:00 position of the left breast. ??It measures approximately 6 mm in size. It is again thought to possibly reflect a small cluster of cysts. IMPRESSION- ??Stable mammographic appearance of the left breast with no change in the mammographic nodularity or the probably benign calcifications undergoing followup as described above. Ultrasound followup shows no change in a small benign appearing mass located at 2:00 as described above. Recommend additional 6 month mammographic and ultrasound followup of the left breast. ACR BI-RADS CATEGORY: ??III, PROBABLY BENIGN RECOMMENDATION: ??Recommend six-month followup left breast diagnostic mammogram to include tomographic images at that point. Also, recommend left CC and ML magnification views. Finally, recommend ultrasound followup of the previously noted mass in the 2:00 position of the left breast as described above. ?? CAD was utilized. The standard false-negative rate of mammography is between 10% and 25%. Complex patterns or increased breast density will markedly elevate the false-negative rate of mammography. ?? A letter, in lay terminology, with the results of this exam was given to the patient at the time of the visit. __ Physician Order Diagnostic 6 Month follow up Mammogram with Breast Ultrasound if needed. Diagnosis: Abnormal Mammogram ? Reading Radiologist- ANURADHA MARS ? Releasing Radiologist- ANURADHA MARS ? Released Date Time- 12/10/13 1152 ? Physician Primary Care Sports Medicine- Bety us Alessandro Trejo MD G US ORDERABLES Final Resu lt * MAMMOGRAPHY DIAGNOSTIC UNILATERAL (12/09/2013 12:59 PM EDT) Anatomical Region Laterality Modality Breast N/A Mammography 12/09/2013 12:5 9 PM EDT Narrative 12/09/2013 4:35 PM EDT LEFT DIAGNOSTIC DIGITAL MAMMOGRAM AND LEFT BREAST ULTRASOUND CLINICAL INDICATION: ??48-year-old patient presents for 6 month mammographic followup of the left breast as well as a followup left breast ultrasound. She has no reported breast complaints. She is status post a right breast mastectomy in 2008. She underwent a left breast reduction surgery in 2009 and is also status post a benign ultrasound guided core biopsy on the left as well as a benign stereotactic core biopsy on the left. TECHNIQUE: Routine digital CC and MLO views of the left breast were performed and supplemented with left CC and ML magnification views. Also, followup ultrasound imaging of the left 2:00 position was performed. COMPARISON: 06/09/2013, 09/03/2012, 02/07/2012, 05/26/2010, 05/03/2010. FINDINGS: ??There are scattered areas of fibroglandular density. The fibroglandular pattern appears stable compared to the prior exam. This includes the nodularity being followed in the anterior left breast. The previously noted grouped punctate and coarse calcifications in the anterior 12:00 position are stable. Likely some of these are within the skin. No spiculated masses or new areas of calcifications are identified. The 2 core biopsy sites located posteriorly are stable. LEFT BREAST ULTRASOUND: Followup ultrasound imaging shows no significant change in the previously noted small hypoechoic mass located in the 2:00 position of the left breast. ??It measures approximately 6 mm in size. It is again thought to possibly reflect a small cluster of cysts. IMPRESSION- ??Stable mammographic appearance of the left breast with no change in the mammographic nodularity or the probably benign calcifications undergoing followup as described above. Ultrasound followup shows no change in a small benign appearing mass located at 2:00 as described above. Recommend additional 6 month mammographic and ultrasound followup of the left breast. ACR BI-RADS CATEGORY: ??III, PROBABLY BENIGN RECOMMENDATION: ??Recommend six-month followup left breast diagnostic mammogram to include tomographic images at that point. Also, recommend left CC and ML magnification views. Finally, recommend ultrasound followup of the previously noted mass in the 2:00 position of the left breast as described above. ?? CAD was utilized. The standard false-negative rate of mammography is between 10% and 25%. Complex patterns or increased breast density will markedly elevate the false-negative rate of mammography. ?? A letter, in lay terminology, with the results of this exam was given to the patient at the time of the visit. __ Physician Order Diagnostic 6 Month follow up Mammogram with Breast Ultrasound if needed. Diagnosis: Abnormal Mammogram ? Reading Radiologist- ANURADHA MARS ? Releasing Radiologist- ANURADHA MARS ? Released Date Time- 12/10/13 1152 ? Physician Primary Care Sports Medicine- eBty us Alessandro Trejo MD IMG MAMMOGRAPHY ORDERABLES F inal Result documented in this encounter Visit Diagnoses Not on filedocumented in this encounter
--- OUTSIDE RECORDS SUMMARY | 2024-01-22 19:52 | XMS_ITS | Encounter Summary ---
Author Organization [facility] Address [address] [place] [address] Care Team Providers Care Enterprise Solutions Architect Name Role Phone Alessandro Trejo MD Primary Care Provider + [phone] Reason for Referral * (Routine) - Closed Specialty Diagnoses / Procedures Referred By Tonie leigh Referred To Contact Radiology Diagnoses Abnormal mammogram Procedures Mammo Diagnostic Digital Tomosynthesis Left With Alessandro Guerrero MD Phone: tel: fax: Referral ID Status Reason Start Date Expiration Date Visits Re quested Visits Authorized [id number] Closed 10/19/2020 10/19/2021 1 1 Reason for Visit * (Routine) - Closed Specialty Diagnoses / Procedures Referred By Tonie leigh Referred To Contact Radiology Diagnoses Abnormal mammogram Procedures Mammo Diagnostic Digital Tomosynthesis Left With Alessandro Guerrero MD Phone: tel: fax: Referral ID Status Reason Start Date Expiration Date Visits Re quested Visits Authorized [id number] Closed 10/19/2020 10/19/2021 1 1 Encounter Details Date Type Department Care Team (Latest Contact Info) Description 11/15/2020 12:46 PM EDT - 11/15/2020 11:59 PM EDT Hospital Encounter [address] [address] Abnormal mammogram Discharge Disposition: Home or Self [...] Routine 11/15/2020 2:08 PM EDT Abnormal mammogram documented in this encounter Results * (ABNORMAL) Mammo Diagnostic Digital Tomosynthesis [...] of concern indicated by the patient. A tatitlek marker is placed over a visible skin [...] to the mass noted on the mammogram. us Anabel Meier MD IMG MAMMOGRAPHY ORDERABLES Fi nal Result documented in this encounter Visit Diagnoses Diagnosis Abnormal mammogram Abnormal mammogram, unspecified documented in this encounter Care Teams Enterprise Solutions Architect Relationship Specialty Start Date End Date Alessandro Trejo MD PCP - General 10/12/14 documented as of this encounter
--- OUTSIDE RECORDS SUMMARY | 2024-01-22 19:52 | XMS_ITS | Encounter Summary ---
Author Organization [facility] Address [address] [place] [address] Care Team Providers Care Antisubmarine Weapons Officer Name Role Phone Alessandro Trejo MD Primary Care Provider + [phone] Reason for Visit * Diagnostic Imaging (Routine) - Closed Specialty Diagnoses / Procedures Referred By Tonie leigh Referred To Contact Radiology Diagnoses Visit for screening mammogram Procedures Mammo Screening Modified With Tomosynthesis Left With CAD Mammo Screening Modified With Tomosynthesis Left With CAD Mammo Screening Digital Tomosynthesis Bilateral With CAD Alessandro Trejo MD Phone: tel: fax: Referral ID Status Reason Start Date Expiration Date Visits Re quested Visits Authorized [id number] Closed 09/12/2020 09/18/2020 1 1 Encounter Details Date Type Department Care Team (Latest Contact Info) Description 10/13/2020 2:46 PM EDT - 10/13/2020 11:59 PM EDT Hospital Encounter [facility] [address] [place] [address] [address] [place] [address] Alessandro Trejo MD [address] [place] [address] [address] [place] [address] Visit for screening mammogram Discharge Disposition: Home or Self Care [...] Name Priority Date/Time Associated Diagnosis Comments MAMMO SCREENING MODIFIED WITH TOMOSYNTHESIS LEFT W CAD Routine 10/13/2020 3:01 PM EDT Visit for screening mammogram documented in this encounter Results * (ABNORMAL) Mammo Screening Modified With Tomosynthesis Left With CAD (10/13/2020 3:01 PM EDT) Anatomical Region Laterality Modality Breast Left Mammography 10/17/2020 2:23 PM EDT Impressions 10/17/2020 2:28 PM EDT Nodular asymmetries on the left MLO O. BI-RADS CATEGORY: ??0 INCOMPLETE- NEEDS ADDITIONAL IMAGING EVALUATION RECOMMENDATION: Spot compression 2-D 3-D left MLO CAD was used. The standard false negative rate of mammography is between 10% and 25%. Complex patterns or increased breast density will markedly elevate the false negative rate of mammography. A letter, in lay terminology, with the results of this exam will be mailed to the patient. Physician Order Diagnostic Mammogram with Breast Ultrasound if needed. Diagnosis: ?? Abnormal Mammogram This report was finalized on 10/17/2020 2:[address] Anabel Meier MD. Narrative 10/17/2020 2:28 PM EDT ROUTINE SCREENING MAMMOGRAM WITH TOMOSYNTHESIS HISTORY: 55-year-old female for routine screening. History of right mastectomy. IMAGE COMPARISON: ??Prior exams, most recently dated 06/06/2016 TECHNIQUE: Low dose full field digital breast tomosynthesis imaging was performed with 2D and 3D acquisitions consisting of unilateral left CC and MLO views. FINDINGS: There are scattered areas of fibroglandular density. Oval asymmetries are new or more prominent than on the prior exam. Spot compression 2-D 3-D MLO views are recommended. There is otherwise no worrisome mass, group of calcifications, or architectural distortion to suggest malignancy. us Alessandro Terjo MD IMG MAMMOGRAPHY ORDERABLES F inal Result documented in this encounter Visit Diagnoses Diagnosis Visit for screening mammogram documented in this encounter Care Teams Antisubmarine Weapons Officer Relationship Specialty Start Date End Date Alessandro Trejo MD PCP - General 10/12/14 documented as of this encounter
--- OUTSIDE RECORDS SUMMARY | 2024-01-22 19:52 | XMS_ITS | Encounter Summary ---
Author Organization [facility] Address [address] [place] [address] Care Team Providers Care Precision Grinder External Name Role Phone Alessandro Trejo MD Primary Care Provider + [phone] Encounter Details Date Type Department Care Team (Late st Contact Info) Description 05/04/2014 Office Visit Converted [facility] C[facility] [address] [facility] [address] [place] [address] Cindy Allison MD [address] [facility] [address] [place] [address] Social History Tobacco Use Types Packs/Day Years Used Date Smoking Tobacco: Never Assessed Comments Unknown Sex and Gender Information Value Date Recorded Sex Assigned at Not on file Legal Sex Female 10:15 AM EDT Gender Identity Not on file Sexual Orientation Not on file documented as of this encounter Progress Notes * Cindy Allison MD - 05/04/2014 2:00 PM EDT LOCATION: [place] Office PRIMARY CARE PHYSICIAN: Alessandro Trejo MD ONCOLOGIST: Abhay Velasquez MD PARTY SUPPLY SPECIALIST: Sonu Saldana MD IDENTIFICATION: The patient is a 48-year-old single white female who is unemployed and is a resident of [place], [place]. PROBLEM LIST: 1. Nonischemic cardiomyopathy, presumed peripartum: [...] trace TR. 2. Lower extremity edema. , A1: a. Due date 04/24/2008; delivered on April 16. 4. Right breast carcinoma: a. Diagnosis by abnormal mammogram. Mastectomy, 02/05/2009. 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 5. Thoracic outlet syndrome. Surgical history: a. Endometriosis, exploratory laparoscopies in 1983 and 2003. Cholecystectomy in 2004. ALLERGIES/DRUG INTOLERANCES: 1. BACTRIM, pruritus. CODEINE, nausea SECTRAL, fatigue. LISINOPRIL, fatigue. CURRENT MEDICATIONS: 1. Amitiza 24 mcg b.i.d. Maxzide 37.5/25 mg p.r.n. Carvedilol 3.125 mg b.i.d. Neurontin 300 mg nightly Percocet 10 mg q6-8 h. p.r.n. Omeprazole 40 mg daily. SUBJECTIVE: Anuradha returns for followup of her nonischemic cardiomyopathy. Her EF had recovered completely as of last year. She is doing well from a cardiac standpoint. Her blood pressure is under good control. Her heart rate does tend to run just a little bit high at times. She is having some issues with left upper quadrant pain, and she will undergo an EGD and colonoscopy in the near future. She sleeps poorly and had a sleep study, which showed no evidence of sleep apnea, but she did have restless leg syndrome. Dr. Trejo has given her something for this, but she cannot remember the name of it. She is more short of breath now but denies chest pain. OBJECTIVE: VITAL SIGNS: Blood pressure 107/72, heart rate 95 and regular, weight 180 pounds, height 5 feet 5 inches, BMI is 30. HEART: Regular rate and rhythm with normal S1 and S2. There is no murmur, gallop, or rub appreciated. LUNGS: Clear to auscultation bilaterally without wheezes, rhonchi, or rales noted. NECK: The jugular venous pressure is within normal limits. Carotid upstrokes are 2+ and symmetricalwithout bruits. EXTREMITIES: There is no evidence of peripheral edema. IMPRESSION: 1. Nonischemic cardiomyopathy with an LVEF of 55% to 60% by echocardiogram, March 2013. Dyspnea. RECOMMENDATIONS: 1. Echocardiogram in the near future. Increase Coreg to 6.25 mg q.12 hours. Follow up here in 1 year or sooner if needed. Cindy Allison MD, FACC* [facility]/brr cc: MD Abhay Crow MD Scott Guiler, MD [facility] Electronically signed by:Cindy Allison MD May 13 2014 10:10AM EST documented in this encounter Plan of Treatment Not on file documented as of this encounter Visit Diagnoses Not on filedocumented in this encounter Care Teams Precision Grinder External Relationship Specialty Start Date End Date Alessandro Trejo MD PCP - General 10/12/14 documented as of this encounter
--- OUTSIDE RECORDS SUMMARY | 2024-01-22 19:52 | XMS_ITS | Encounter Summary ---
Author Organization [facility] Address [address] [place] [address] Care Team Providers Care Stonework Supervisor Name Role Phone Alessandro Trejo MD Primary Care Provider + [phone] Reason for Referral * (Routine) - Closed Specialty Diagnoses / Procedures Referred By Contac t Referred To Contact Radiology Diagnoses Visit for screening mammogram Procedures Mammo Screening Modified Left With CAD Dilshad Saldana MD [address] [place] [address] Phone: tel: fax: Referral ID Status Reason Start Date Expiration Date Visits Re quested Visits Authorized [id number] Closed 02/02/2016 02/01/2017 1 1 Reason for Visit * (Routine) - Closed Specialty Diagnoses / Procedures Referred By Contac t Referred To Contact Radiology Diagnoses Visit for screening mammogram Procedures Mammo Screening Modified Left With CAD Dilshad Saldana MD [address] [place] [address] Phone: tel: fax: Referral ID Status Reason Start Date Expiration Date Visits Re quested Visits Authorized [id number] Closed 02/02/2016 02/01/2017 1 1 Encounter Details Date Type Department Care Team (Latest Contact Info) Description 06/06/2016 10:20 AM EDT - 06/06/2016 11:59 PM EDT Hospital Encounter [facility] [address] [facility] [place] [address] Dilshad Saldana MD [address] [facility] [address] [place] [address] Visit for screening mammogram Discharge Disposition: Home [...] encounter Medications at Time of Discharge bisoprolol (ZEBETA) 5 MG tabletIndications:No nischemic cardiomyopathy Take 1 tablet by mouth daily. 90 tablet 3 11/10/2015 7 triamterene-hydrochl orothiazide (MAXZIDE-25) 37.5-25 MG per tabletIndications:No nischemic cardiomyopathy Take 1 tablet by mouth daily. 90 tablet 3 11/10/2015 7 documented as of this encounter Plan of Treatment Not on file documented as of this encounter Procedures Procedure Name Priority Date/Time Associated Diagnosis Comments MAMMO SCREENING MODIFIED LEFT W CAD Routine 06/06/2016 11:08 AM EDT Visit for screening mammogram documented in this encounter Results * Mammo Screening Modified Left With CAD (06/06/2016 11:08 AM EDT) Anatomical Region Laterality Modality Breast Left Mammography 06/07/2016 8:25 AM EDT Impressions 06/07/2016 8:25 AM EDT No findings suspicious for malignancy. ? BI-RADS CATEGORY: ??II, BENIGN RECOMMENDATION: Yearly mammogram, yearly clinical breast exam, and encourage self breast awareness. CAD was used. The standard false negative rate of mammography is between 10% and 25%. Complex patterns or increased breast density will markedly elevate the false negative rate of mammography. A letter, in lay terminology, with the results of this exam will be mailed to the patient. ?? If there is a palpable area of concern, biopsy should be considered regardless of imaging findings. This report was finalized on 06/07/2016 8:[address] Annemarie Whitehead MD. Narrative 06/07/2016 8:25 AM EDT MODIFIED LEFT DIGITAL SCREENING MAMMOGRAM WITH TOMOSYNTHESIS HISTORY: Routine screening. ??The patient is status post right breast mastectomy. TECHNIQUE: Low dose full field digital breast tomosynthesis imaging was performed with 2D and 3D acquisitions. ? IMAGE COMPARISON: ??06/10/2014, 12/09/2013, 06/09/2013, 09/03/2012, 02/07/2012. FINDINGS: ??There are scattered areas of fibroglandular density. The fibroglandular pattern of the left breast is stable in appearance. Two postbiopsy marking clips are again noted in the left breast. There are stable calcifications in the left breast. There is no mass, worrisome microcalcifications, or architectural distortion to suggest development of malignancy. Dilshad Saldana MD IMG MAMMOGRAPHY ORDERABL ES Final Result documented in this encounter Visit Diagnoses Diagnosis Visit for screening mammogram documented in this encounter Care Teams Stonework Supervisor Relationship Specialty Start Date End Date Alessandro Trejo MD PCP - General 10/12/14 documented as of this encounter
--- OUTSIDE RECORDS SUMMARY | 2024-01-22 19:52 | XMS_ITS | Encounter Summary ---
Author Organization [facility] Address [address] [place] [address] Care Team Providers Care Ladle Repairer Name Role Phone Alessandro Trejo MD Primary Care Provider + [phone] Encounter Details Date Type Department Care Team (Late st Contact Info) Description 12/07/2008 Historical Mammograp hy En[place] [facility] [address] [facility] [place] [address] Interface, See Report Social History [...] Associated Diagnosis Comments MAMMO HISTORICAL RESULT Routine 12/07/2008 1:45 PM EDT documented in this encounter Results * MAMMO HISTORICAL RESULT (12/07/2008 1:45 PM EDT) Anatomical Region Laterality Modality Breast Mammography 12/07/2008 1:45 PM EDT Narrative 12/08/2008 1:00 PM EDT ?[facility] ? [address] ??[place], [place] [address] ? NAME: ANURADHA CRONIN ? : ??[birth year] ??MR#: [id number] ? LOC: ?? DIS ? AGE: 43Y ?? Pt type: CO ?Exam Date: 12/07/082 ? SEX: F ?? AN#:[id number] ?Ck-in#: [id number] ? [facility] ? [address] ? [address] ? [place] ?[place] ?[address] ? Chk-in # ?? Order ?Exam ?[id number] ?? 0001 ? [id number] ??AB MAMM SCREEN BILAT DIG PNL ? Ord Diag: RTN MMG ? BILATERAL ROUTINE SCREENING MAMMOGRAM: ?? HISTORY: The patient is a 43-year-old female for routine screening mammogram. ??No personal or family history of breast cancer. ?? FILM COMPARISON: Baseline. ?? FINDINGS: The breast parenchymal pattern is heterogeneously dense. There is a nodule in the upper outer quadrant of the right breast, which is probably an intramammary lymph node. Spot compression views are necessary to determine if a fatty hilum can be seen. If it cannot be proven to be a definite lymph node by mammography, ultrasound should be performed. There are also faint calcifications in the inferior portion of the right breast. Magnification views will be necessary. Magnification views of calcifications in the superior right breast are also recommended. ??On the left there is no mass, cluster of microcalcifications, or architectural distortion to suggest malignancy. ?? IMPRESSION: ??Findings deserving of additional imaging on the right at this time, including magnification and spot compression views. ?? Six-month bilateral followup will then be necessary minimally in order to establish a baseline. ?? BI-RADS 0, INCOMPLETE. ? RECOMMENDATION: ??Additional imaging on the right. ? FINAL ?CONTINUED ?Page ??1 ? RADIOLOGY REPORT ?[facility] ? [address] ??[place], [place] [address] ? NAME: ANURADHA CRONIN ? : ??[birth year] ??MR#: [id number] ? LOC: ?? DIS ? AGE: 43Y ?? Pt type: CO ?Exam Date: 12/07/08 1342 ? SEX: F ?? AN#:[id number] ?Ck-in#: [id number] ? [facility] ? [address] ? [address] ? [place] ?[place] ?[address] ? Checkin-Exam Code Summary ? [id number] The standard false-negative rate of mammography is between 10 and 25%. Complex patterns of increased breast density will markedly elevate the false-negative rate of mammography. ? iCAD was utilized. ?? A letter, in lay terminology, with the results of this exam will be mailed to the patient. ?/READ BY/ MARQUES JONAS ?/Released By/ MARQUES JONAS ?Released By Date/Time: ??12/08/081248 ?Maintenance Scheduler: ??MM ? FINAL ? Page ??2 ? RADIOLOGY REPORT ?[facility] ? [address] ??[place] [address] ? NAME: ANURADHA CRONIN ? : ??[birth year] ??MR#: [id number] ? LOC: ?? DIS ? AGE: 43Y ?? Pt type: CO ?Exam Date: 12/07/082 ? SEX: F ?? AN#:[id number] ?Ck-in#: [id number] ? JAVIER,Juan- MARIANNE ? [address] ? [address] ? [place] ?[place] ?[address] ? Chk-in # ?? Order ?Exam ?[id number] ?? 0001 ? [id number] ??AB MAMM SCREEN BILAT DIG PNL ? Ord Diag: RTN MMG ? BILATERAL ROUTINE SCREENING MAMMOGRAM: ?? HISTORY: The patient is a 43-year-old female for routine screening mammogram. ??No personal or family history of breast cancer. ?? FILM COMPARISON: Baseline. ?? FINDINGS: The breast parenchymal pattern is heterogeneously dense. There is a nodule in the upper outer quadrant of the right breast, which is probably an intramammary lymph node. Spot compression views are necessary to determine if a fatty hilum can be seen. If it cannot be proven to be a definite lymph node by mammography, ultrasound should be performed. There are also faint calcifications in the inferior portion of the right breast. Magnification views will be necessary. Magnification views of calcifications in the superior right breast are also recommended. ??On the left there is no mass, cluster of microcalcifications, or architectural distortion to suggest malignancy. ?? IMPRESSION: ??Findings deserving of additional imaging on the right at this time, including magnification and spot compression views. ?? Six-month bilateral followup will then be necessary minimally in order to establish a baseline. ?? BI-RADS 0, INCOMPLETE. ? RECOMMENDATION: ??Additional imaging on the right. ? SUPPLEMENTAL X 2 ? CONTINUED ?Page ??1 ? RADIOLOGY REPORT ?[facility] ? [address] ??[place] [address] ? NAME: ANURADHA CRONIN ? : ??[birth year] ??MR#: [id number] ? LOC: ?? DIS ? AGE: 43Y ?? Pt type: CO ?Exam Date: 12/07/081341 ? SEX: F ?? AN#:[id number] ?Ck-in#: [id number] ? [facility] ? [address] ? [address] ? [place] ?[place] ?[address] ? Checkin-Exam Code Summary ? [id number] The standard false-negative rate of mammography is between 10 and 25%. Complex patterns of increased breast density will markedly elevate the false-negative rate of mammography. ? iCAD was utilized. ?? A letter, in lay terminology, with the results of this exam will be mailed to the patient. ?/READ BY/ MARQUES JONAS ?/Released By/ MARQUES JONAS ?Released By Date/Time: ??12/08/081516 ?Maintenance Scheduler: ??MM ? SUPPLEMENTAL X 2 ?Page ??2 ? RADIOLOGY REPORT us See Report Interface IMG MAMMOGRAPHY ORDERABLES Final Result documented in this encounter Visit Diagnoses Not on filedocumented in this encounter Care Teams Ladle Repairer Relationship Specialty Start Date End Date Alessandro Trejo MD PCP - General 10/12/14 documented as of this encounter
--- OUTSIDE RECORDS SUMMARY | 2024-01-22 19:52 | XMS_ITS | Encounter Summary ---
[facility] Organization [facility] Address [address] [place] [id number] Care Team Providers Care Breakfast Host Name Role Phone Unavailable Primary Care Provider Unavailabl e Encounter Details Date Type Department Care Team (Late st Contact Info) Description 07/27/2013 8:00 PM EDT - 07/28/2013 7:30 AM EDT Hospital Encounter [address] [phone] Elliot Tatum MD [address] [place] [address] Social History Tobacco Use Types Packs/Day Years [...]
--- OUTSIDE RECORDS SUMMARY | 2024-01-22 19:52 | XMS_ITS | Encounter Summary ---
[facility] Organization [facility] Address [address] [place] [id number] Care Team Providers Care Wheel Installer Name Role Phone Unavailable Primary Care Provider Unavailabl e Encounter Details Date Type Department Care Team (Late st Contact Info) Description 06/26/2013 11:43 AM EDT - 06/26/2013 11:59 PM EDT Hospital Encounter [address] [phone] Elliot Tatum MD [address] [place] [address] Social History Tobacco Use Types Packs/Day Years [...]
--- OUTSIDE RECORDS SUMMARY | 2024-01-22 19:52 | XMS_ITS | Encounter Summary ---
Author Organization [facility] Address [address] [place] [id number] Care Team Providers Care Mop Handle Assembler Name Role Phone Unavailable Primary Care Provider Unavailabl e Encounter Details Date Type Department Care Team (Late st Contact Info) Description 09/13/2013 12:27 PM EDT - 09/13/2013 1:44 PM EDT Emergency [facility] [address] [facility] [place] [id number] Maxx Be MD [address] [facility] [place] [address] Social History Tobacco Use Types Packs/Day Years Used Date Smoking Tobacco: Never Assessed Comments Unknown Sex and Gender Information Value Date Recorded Sex Assigned at Not on file Legal Sex Female 10:15 AM EDT Gender Identity Not on file Sexual Orientation Not on file documented as of this encounter ED Notes * Interface, See Report - 09/13/2013 12:27 PM EDT Addenda for ANURADHA CRONIN VisitID: [id number] Date: 09/13/2013 09/15/2013 7:53 P Addendum to Nurses Clinical Report ositive MRSA result from right breast wound received from lab staff. Result given to Dr. Be for review and treatment. (Electronically signed by Yumi Washington R.N. - 09/15/2013 7:53) 09/15/2013 9:27 Attempted to call pt about her culture results but the answering machine was full . A letter was transcribed and sent to the pt. (Electronically signed by Kal Cantu - 09/15/2013 9:27) * Interface, See Report - 09/13/2013 12:27 PM EDT Clinical Report - Physicians/[facility] Levels [facility] Emergency Department [address] [place] [address] 09/13/2013 Patient: ANURADHA CRONIN Sex: F : 1965 Age: 47y Time Seen: 12:39; initial patient contact, initial documentation. Arrived- By private vehicle. Historian- patient. HISTORY OF PRESENT ILLNESS Chief Complaint: drainage from right breast. When seen in the E.D., it was gone. Modifying factors. Not worsened by anything. 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 She was cared for by Dr. Shay. She states she has been having a white d/c from the lower part of the incision. No redness. No pain, no fever. Hasn't called Dr. Shay about this. She states today she has had a headache and nausea. and is now gone. The patient has had loss of appetite and a headache. No weight loss, visual disturbance, fatigue, muscle aches or weakness. Denies sleep problem. No decreased urine output. Similar symptoms previously: Chronically. Recent medical care: Not recently seen/assessed. REVIEW OF SYSTEMS No fever, sore throat, sinus drainage, nasal congestion or cough. No difficulty breathing, chest pain, nausea, vomiting or diarrhea. No black stools, bloody stools, chills, blackouts or double vision. The patient has had a headache. No difficulty with ambulation. All systems otherwise negative, except as recorded above. PAST HISTORY See nurses notes. SOCIAL HISTORY Current every day heavy tobacco smoker- less than 1 pack per day. No alcohol use or drug use. ADDITIONAL NOTES The nursing notes have been reviewed. PHYSICAL EXAM Appearance: Alert. No acute distress. Eyes: Pupils equal, round and reactive to light. Eyes normal inspection. ENT: Ears normal. Nose normal. Pharynx normal. Neck: Normal inspection. Neck supple. CVS: Normal heart rate and rhythm. Heart sounds normal. Pulses normal. Respiratory: No respiratory distress. Breath sounds normal. Chest nontender. Breast Exam: [employer] present. Non tender. No mass noted on exam. No rash. No discharge. No adenopathy. Right Breast: Abnormal appearance. Healed incision. No drainage at this time. The area she indicates has a tiny scabbed over area at the lateral edge of the areola. No erythema. No tenderness. Abdomen: No visible injury. Soft and nontender. Bowel sounds normal. No organomegaly. No mass. Femoral pulses equal. Back: Normal inspection. Skin: Skin warm and dry. Normal skin color. No rash. Normal skin turgor. Extremities: Extremities exhibit normal ROM. No lower extremity edema. Neuro: Oriented X 3. No motor deficit. No sensory deficit. Reflexes normal. LABS, X-RAYS, AND EKG Laboratory Tests: Laboratory tests have been ordered, with results reviewed and considered in the medical decision making process. BMP: (RYLAN: 09/13/2013 12:55)( MsgRcvd 09/13/2013 13:26) Final results Test Result Flag Units (Reference) Glucose 108 H mg/dL (70-100) BUN 15 mg/dL (9-23) Creatinine 0.7 mg/dL (0.6-1.3) Sodium 137 mmol/L (132-146) Potassium 3.5 mmol/L (3.5-5.5) Chloride 101 mmol/L (99-109) Carbon Dioxide 27 mmol/L (20-31) Calcium 10.0 mg/dL (8.7-10.4) Est MDRD GFR 89 ml/min/1.732 National Kidney Foundation Guidelines Stage Description GFR 1 Normal or High 90+ 2 Mild decrease 60-89 3 Moderate decrease 30-59 4 Severe decrease 15-29 5 Kidney failure <15 Anion Gap 9 mmol/L (3-11) CBC w Auto Diff: (RYLAN: 09/13/2013 12:55)( MsgRcvd 09/13/2013 13:12) Final results Test Result Flag Units (Reference) WBC 8.44 K/mcL (3.50-10.80) RBC 4.97 M/mcL (3.89-5.14) Hemoglobin 13.9 g/dL (11.5-15.5) Hematocrit 42.6 % (34.5-44.0) MCV 85.7 fL (80.0-99.0) MCH 28.0 pg (27.0-31.0) MCHC 32.6 g/dL (32.0-36.0) RDWCV 14.5 % (11.3-14.5) Platelet 165 K/mcL (150-450) Abs Neutrophil 6.74 K/mcL (1.50-8.30) Abs Lymph 1.08 K/mcL (0.60-4.80) Abs [place] 0.47 K/mcL (0.00-1.00) Abs Eos 0.11 K/mcL (0.10-0.30) Abs Baso 0.02 K/mcL (0.00-0.20) Neutrophils 79.9 H % (41.0-71.0) Lymphocytes 12.8 L % (24.0-44.0) Monocytes 5.6 % (0.0-12.0) Eosinophils 1.3 % (0.0-3.0) Basophils 0.2 % (0.0-1.0) Immature Gran 0.2 % (0.0-0.6) . CLINICAL IMPRESSION Right breast discharge. INSTRUCTIONS Warnings: Further evaluation is necessary. It is very important to follow up with a physician. GENERAL WARNINGS: Return or contact your physician immediately if your condition worsens or changes unexpectedly, if not improving as expected, or if other problems arise. Understanding of the discharge instructions verbalized by patient. Follow-up with: Susie Schmid MD, Plastic Surgery, , [address] [place] [address], [place] [address] Follow up tomorrow. Call for an appointment. (Electronically signed by Sharon Lock P.A. 09/13/2013 16:36) Co-signature 09/13/2013 16:59 Agree with MLP's findings and plan. I reviewed the MLP's note. (Electronically signed by Maxx Be M.D. - 09/13/2013 16:59) documented in this encounter Plan of Treatment Not on file documented as of this encounter Procedures Procedure Name Priority Date/Time Associated Diagnosis Comments CBC AND DIFFERENTIAL Routine 09/13/2013 12:55 PM EDT BASIC METABOLIC PANEL Routine 09/13/2013 12:55 PM EDT WOUND CULTURE Routine 09/13/2013 12:47 PM EDT documented in this encounter Results * (ABNORMAL) Basic metabolic panel (09/13/2013 12:55 PM EDT) Glucose 108(H) 70 - 100 mg/dL [facility] BUN 15 9 - 23 mg/dL [facility] Creatinine 0.7 0.6 - 1.3 mg/dL [facility] Sodium 137 132 - 146 mmol/L [facility] Potassium 3.5 3.5 - 5.5 mmol/L [facility] Chloride 101 99 - 109 mmol/L [facility] CO2 27 20 - 31 mmol/L [facility] Calcium 10.0 8.7 - 10.4 mg/dL [facility] eGFR 89 ml/min/1.7 32 [facility] Comment: DF by IF @ 09/13/2013 13:26 ?? National Kidney Foundation Guidelines ?Stage ? Description ?GFR ?1 ?Normal or High ? 90+ ?2 ?Mild decrease ? 60-89 ?3 ?Moderate decrease ?30-59 ?4 ?Severe decrease ?15-29 ?5 ?Kidney failure ?<15 Anion Gap 9 3 - 11 mmol/L [facility] Blood specimen (specimen) 09/13/2013 12:55 PM EDT Narrative [facility] - 09/13/2013 1:26 PM EDT Specimen Type: Blood Sharon Lock [place] LAB BLOOD ORDERABLE S Final Result Performing Organization Address City/State/[facility] Co de Phone Number [facility] [address] [place] [address], * (ABNORMAL) CBC and Differential (09/13/2013 12:55 PM EDT) WBC 8.44 3.50 - 10.80 /[facility] RBC 4.97 3.89 - 5.14 /[facility] LABORATORY Hemoglobin 13.9 11.5 - 15.5 g/dL [facility] Hematocrit 42.6 34.5 - 44.0 % [facility] MCV 85.7 80.0 - 99.0 fL [facility] MCH 28.0 27.0 - 31.0 pg [facility] MCHC 32.6 32.0 - 36.0 g/dL [facility] RDW-CV 14.5 11.3 - 14.5 % [facility] Platelets 165 150 - 450 K/[facility] Neutrophils Absolute 6.74 1.50 - 8.30 /[facility] Lymphocytes Absolute 1.08 0.60 - 4.80 K/[facility] LABORATORY Monocytes Absolute 0.47 0.00 - 1.00 [facility]ORATORY Eosinophils Absolute 0.11 0.10 - 0.30 [facility]ORATORY Basophils Absolute 0.02 0.00 - 0.20 [facility] Neutrophil Rel % 79.9(H) 41.0 - 71.0 % [facility] Lymphocyte Rel % 12.8(L) 24.0 - 44.0 % [facility] Monocyte Rel % 5.6 0.0 - 12.0 % [facility] Eosinophil Rel % 1.3 0.0 - 3.0 % [facility] Basophil Rel % 0.2 0.0 - 1.0 % [facility] Immature Granulocyte Rel % 0.2 0.0 - 0.6 % [facility] Blood specimen (specimen) 09/13/2013 12:55 PM EDT [facility]ATORY - 09/13/2013 1:12 PM EDT Specimen Type: Blood Sharon MANCERA LAB BLOOD ORDERABLE S Final Result Performing Organization Address City/State/[facility] Co de Phone Number [facility] [address] [place] [address], * Wound culture (09/13/2013 12:47 PM EDT) Swab (specimen) 09/13/2013 1 2:47 PM EDT [facility] - 09/15/2013 8:54 AM EDT Specimen Type: Wound Specimen Source: right breast [facility] Laboratory - Culture WOUND with Gram Stain Specimen: Wound Collected: 09/13/2013 12:47 Status: FINAL ? Last Updated: 09/15/2013 08:54 Gram Stain (GRAM) (Final) ??Rare Epithelial Cells No White Cells ??or Organisms Seen Isolate (ISO1) (Final) ??Methicillin Resistant Staphylococcus aureus ?? (ISO1) Light Growth CLINDAMYCIN ?<=0.5 ? S DAPTOMYCIN ? <=0.5 ? S ERYTHROMYCIN ? >4 ?R GENTAMICIN ? <=4 ? S LEVOFLOXACIN ? <=1 ? S LINEZOLID ?2 ? S OXACILLIN ?>2 ?R PENICILLIN ? >8 ?R RIFAMPIN ? <=1 ? S QUINUPRISTIN/DALFOPRISTIN ?<=0.5 ? S TETRACYCLINE ? <=4 ? S TRIMETHOPRIM/SULFA ? <=0.5/9.5 S VANCOMYCIN ? 2 ? S ?? (ISO1) This isolate has screened Negative for inducible Clindamycin Resistance. ?? (ISO1) TRD Called to, read back and verified by: MARQUES,RN AT 0749 ON [id number] Sharon MANCERA MICROBIOLOGY - GENE RAL ORDERABLES Final Result [place] [id number] [place] [address], documented in this encounter Visit Diagnoses Not on filedocumented in this encounter
--- OUTSIDE RECORDS SUMMARY | 2024-01-22 19:52 | XMS_ITS | Encounter Summary ---
Author Organization [facility] Address [address] [place] [address] Care Team Providers Care Contracts Law Professor Name Role Phone Alessandro Trejo MD Primary Care Provider + [phone] Encounter Details Date Type Department Care Team (Late st Contact Info) Description 07/04/2009 Conversion En[place] [facility] [address] [facility] [place] [address] Interface, See Report Social History [...] Associated Diagnosis Comments MAMMO HISTORICAL RESULT Routine 07/04/2009 2:10 PM EDT CONVERTED (HISTORICAL) SURGICAL PATHOLOGY Routine 07/04/2009 2:10 PM EDT documented in this encounter Results * Converted Surgical Pathology (07/04/2009 2:10 PM EDT) 07/04/2009 2:10 PM EDT [facility] LABORATORY - 07/06/2009 9:50 AM EDT [facility] [address] [place] [address] SURGICAL PATHOLOGY REPORT Patient Name: ANURADHA CRONIN MR#: [id number] : 1965 Gender: F Ordering Physician: CORA PEREZ Copy To: MARIANNE HERRERA, KATHI Araya Location: Breast Center Collected: 07/04/2009 Received: 07/05/2009 Reported: 07/06/2009 Clinical Diagnosis and History The working history is left breast 0.7 cm oval mass at 3 o'clock. Final Diagnosis LEFT BREAST MASS AT 3 O'CLOCK, ULTRASOUND GUIDED NEEDLE BIOPSIES: ? Fibroadenoma. MHB/rw COMMENT: This report was faxed to the Radiologists at the [facility] on July 06, 2009. ??MHB/rw Amendments: Electronically Signed Out By JULI SANTOS Specimen(s) Received: Breast, needle biopsy Gross Description The specimen, labeled left breast ultrasound guided biopsy, received in formalin, consists of a 1.5x1.0x0.3 cm aggregate of dawkins/pink fibroadipose breast tissue fragments which were placed in formalin at 4:30 pm and are now submitted in one cassette. ?? HM/mbc ?? Microscopic Description Sections show a hyalinized stroma with branching benign-appearing mammary ducts. MHB/rw Previous Pertinent History [id number], 03/08/09. 1. RIGHT SENTINEL LYMPH NODES: No metastasis identified (0/2). 2. 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 ??No invasive tumor identified. Two additional lymph nodes negative for metastasis. See TEMPLATE and [id number]. ([facility]) Procedures/Addenda us See Report Interface PATHOLOGY/CYTOLOGY ORDERABL ES Final Result [facility] [address] [place] [address], * MAMMO HISTORICAL RESULT (07/04/2009 2:10 PM EDT) Anatomical Region Laterality Modality Breast Mammography 07/04/2009 2:10 PM EDT Narrative 07/04/2009 5:50 PM EDT ?[facility] ? [address] ??[place], [place] [address] ? NAME: ANURADHA CRONIN ? : ??[birth year] ??MR#: [id number] ? LOC: ?? CO ? AGE: 43Y ?? Pt type: CO ?Exam Date: 07/04/091413 ? SEX: F ?? AN#:[id number] ?Ck-in#: [id number] ? Dino HERRERA ? [address] ? [address] ? [place] ?[place] ?[address] ? Chk-in # ?? Order ?Exam ?[id number] ?? 0001 ? [id number] ??BC MAMM DIAG UNILAT DIG PNL*L ? Ord Diag: HX BR CA ? LEFT DIAGNOSTIC MAMMOGRAM ?? HISTORY: 43-year-old patient with a history of right mastectomy. Patient is scheduled for reconstruction of the right breast on 07/20/2009. She has no current left breast complaints. ?? TECHNIQUE: Routine left CC and MLO digital mammographic images were obtained and supplemented with a laterally exaggerated left CC view, left MLO focal compression view, and a full left ML view. ?? COMPARISON: 12/07/2008. ?? FINDINGS: There are scattered fibroglandular densities in the left breast. There is a nodular asymmetry in the left upper-outer quadrant that improved slightly on additional mammographic imaging and may represent normal fibroglandular tissue. This nodular asymmetry is similar in appearance to the prior 12/07/2008 mammogram. Will evaluate further with ultrasound. The remaining left fibroglandular pattern is stable. ?? IMPRESSION: Questionable left upper-outer quadrant nodular asymmetry that may actually represent normal fibroglandular tissue and a similar appearance to the prior 2008 mammogram. ?? RECOMMENDATION: Left breast ultrasound. ?? BI-RADS CATEGORY 0, INCOMPLETE. ??The patient needs additional imaging. Please accept this as an order. ? FINAL ?CONTINUED ?Page ??1 ? RADIOLOGY REPORT ?[facility] ? [address] ??[place], [place] [address] ? NAME: KAROLINAEILEENANURADHA ? : ??[birth year] ??MR#: [id number] ? LOC: ?? CO ? AGE: 43Y ?? Pt type: CO ?Exam Date: 07/04/1413 ? SEX: F ?? AN#:[id number] ?Ck-in#: [id number] ? Dino HERRERA ? [address] ? [address] ? [place] ?[place] ?[address] ? Checkin-Exam Code Summary ? [id number] ?? iCAD was utilized. ?? The standard false-negative rate of mammography is between 10 and 25%. Complex patterns or increased breast density will markedly elevate the false-negative rate of mammography. ? A results letter, in lay terminology, will be given to the patient at the conclusion of the exam. ?/READ BY/ CORA YAO ?/Released By/ CORA YAO ?Released By Date/Time: ??07/04/091739 ?Stem Sizer: ??JBW ? FINAL ? Page ??2 ? RADIOLOGY REPORT us See Report Interface IMG MAMMOGRAPHY ORDERABLES Final Result documented in this encounter Visit Diagnoses Not on filedocumented in this encounter Care Teams Contracts Law Professor Relationship Specialty Start Date End Date Alessandro Trejo MD PCP - General 10/12/14 documented as of this encounter
--- OUTSIDE RECORDS SUMMARY | 2024-01-22 19:52 | XMS_ITS | Encounter Summary ---
Author Organization [facility] Address [address] [place] [address] Care Team Providers Care Goods Layer Name Role Phone Alessandro Trejo MD Primary Care Provider + [phone] Encounter Details Date Type Department Care Team (Late st Contact Info) Description 01/18/2009 Conversion Encounter [facility] [place] [place]V [address] [place] [address] Interface, See Report Social History [...] Associated Diagnosis Comments MAMMO HISTORICAL RESULT Routine 01/18/2009 9:10 AM EST CONVERTED (HISTORICAL) SURGICAL PATHOLOGY Routine 01/18/2009 9:10 AM EST documented in this encounter Results * Converted Surgical Pathology (01/18/2009 9:10 AM EST) 01/18/2009 9:10 AM EST [facility] LABORATORY - 03/11/2009 12:45 PM EST [facility] SURGICAL PATHOLOGY REPORT Patient Name: ANURADHA CRONIN MR#: [id number] : 1965 Gender: F Ordering Physician: MARQUES JONAS Copy To: JAVIERCHEYANNE CRISTIANE LESLIE Location: Breast Center Collected: 01/18/2009 Received: 01/18/2009 Reported: 03/11/2009 Clinical Diagnosis and History The working history is right breast calcifications. Final Diagnosis ADDENDUM IMMUNOHISTOCHEMISTRY RESULTS: This tumor shows POSITIVE nuclear staining for Estrogen Receptor (over 100% of tumor nuclei) and POSITIVE staining for Progesterone Receptor (lojf684% of tumor nuclei). ??Controls stain appropriately. COMMENT: 1% or greater numbers of nuclei staining of any intensity is considered a positive test in our laboratory. ER clone Lug[employer] SPI, [place] clone IE2, IVD approved immunohistochemical stains on formalin fixed, paraffin embedded tissue. Template on [facility] Case #[id number] updated with these results. ??MHB/rw 1. RIGHT BREAST, STEREOTACTIC BIOPSY, SITE A: ? Proliferative fibrocystic changes for microcalcifications. 2. RIGHT BREAST, STEREOTACTIC BIOPSY, SITE B: ? 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 MHB/rw COMMENT: This report was faxed to the Radiologists at the [facility] on January 19, 2009. ??MHB/rw Amendments: Amended: ??03/11/2009 by Maritza Dean Reason: Immunohistochemical Results ? Previous Signout Date: ??01/19/2009 Electronically Signed Out By JULI SANTOS Specimen(s) Received: 1: Breast, needle bx 2: Breast, needle bx Gross Description Specimen 1 labeled right breast 3site A4 stereotactic biopsy, placed in formalin at 11:08 am, consists of dawkins/yellow fragments measuring 2.0x2.0x1.0 cm. ??This specimen is submitted in toto with the taped cassette in 1B. Specimen 2 labeled right breast 3site B4 stereotactic biopsy, placed in formalin at 11:35 am, consists of dawkins/yellow fragments measuring in aggregate 3.0x2.0x0.8 cm. ??The specimen is submitted in toto with the taped cassette in 2B. MHB/mbc Microscopic Description Sections show stromal fibrosis with ductal dilatation and cyst formation. Calcifications are seen in benign ducts. ??Some intraductal hyperplasia is identified and focal fibroadenomatoid change is seen, but no atypical hyperplasia or malignancy is seen. Specimen 2 shows similar fibrocystic changes but also shows filling of the ducts with uniform population of cells and some central necrosis. ??Calcifications are also seen in some of these nests. ??No invasive tumor is identified. ??MHB/rw Procedures/Addenda us See Report Interface PATHOLOGY/CYTOLOGY ORDERABL ES Final Result [facility] [address] [place] [address], * MAMMO HISTORICAL RESULT (01/18/2009 9:10 AM EST) Anatomical Region Laterality Modality Breast Mammography 01/18/2009 9:10 AM EST Narrative 01/18/2009 3:50 PM EST ?[facility] ? [address] ??[place], [place] [address] ? NAME: ANURADHA CRONIN ? : ??[birth year] ??MR#: [id number] ? LOC: ?? CO ? AGE: 43Y ?? Pt type: CO ?Exam Date: 01/18/09910 ? SEX: F ?? AN#:[id number] ?Ck-in#: [id number] ? RAYMON [facility]ERRERA ? [address] ? [address] ? [place] ?[place] ?[address] ? Chk-in # ?? Order ?Exam ?[id number] ?? 0001 ? [id number] ??BC MAMM DIAG UNILAT DIG*R ? Ord Diag: ABN MMG ? HISTORY: ??Three-view right mammogram was performed immediately following stereotactic biopsy of right breast calcifications. ?? DIGITAL UNILATERAL RIGHT DIAGNOSTIC MAMMOGRAM: ?? FINDINGS: ??Clips are seen appropriately positioned in both the inferior and superior breast. ?? No BI-RADS is necessary. ??The exam is for clip placement only. ?/READ BY/ MARQUES JONAS ?/Released By/ MARQUES JONAS ?Released By Date/Time: ??01/18/091537 ?Straddle Truck Operator: ??MM ? FINAL ? Page ??1 ? RADIOLOGY REPORT us See Report Interface IMG MAMMOGRAPHY ORDERABLES Final Result documented in this encounter Visit Diagnoses Not on filedocumented in this encounter Care Teams Goods Layer Relationship Specialty Start Date End Date Alessandro Trejo MD PCP - General 10/12/14 documented as of this encounter
--- OUTSIDE RECORDS SUMMARY | 2024-01-22 19:52 | XMS_ITS | Encounter Summary ---
Author Organization [facility] Address [address] [place] [address] Care Team Providers Care Airplane Pilot Crop Dusting Name Role Phone Alessandro Trejo MD Primary Care Provider + [phone] Encounter Details Date Type Department Care Team (Late st Contact Info) Description 12/24/2008 Historical Mammograp hy Encounter [facility] [place] [facility] [address] [facility] [place] [address] Interface, See Report Social [...] Associated Diagnosis Comments MAMMO HISTORICAL RESULT Routine 12/24/2008 1:37 PM EST documented in this encounter Results * MAMMO HISTORICAL RESULT (12/24/2008 1:37 PM EST) Anatomical Region Laterality Modality Breast Mammography 12/24/2008 1:37 PM EST Narrative 12/24/2008 5:12 PM EST ?[facility] ? [address] ??[place], [place] [address] ? NAME: ANURADHA CRONIN ? : ??[birth year] ??MR#: [id number] ? LOC: ?? CO ? AGE: 43Y ?? Pt type: CO ?Exam Date: 12/24/08 1338 ? SEX: F ?? AN#:[id number] ?Ck-in#: [id number] ? Dino HERRERA ? [address] ? [address] ? [place] ?[place] ?[address] ? Chk-in # ?? Order ?Exam ?[id number] ?? 0001 ? [id number] ??BC MAMM DIAG UNILAT DIG PNL*R ? Ord Diag: ABN MMG ? RIGHT DIAGNOSTIC MAMMOGRAM: ?? CLINICAL INDICATION: 43-year-old patient recalled from recent screening examination dated 12/07/08 for further evaluation of the right breast. ?? TECHNIQUE: Right CC and MLO magnification views, full right ML view, right CC and MLO focal compression views. ?? COMPARISON: 12/07/08. ?? FINDINGS: ??Additional imaging of the right breast does confirm two adjacent approximately 0.9 cm oval isodense masses in the far upper-outer quadrant. The borders of the masses are partially obscured. The visualized borders, however, appear circumscribed. On a CC magnification view these masses contain both a fatty center and are consistent with intramammary lymph nodes. ?? Magnification views centered over the anterior 12 and 6 o'clock positions were performed. In the anterior 12 o'clock position, there are fine pleomorphic calcifications which extend over 4 .9 cm of tissue. Magnification views centered over the 6 o'clock position also reveal fine pleomorphic/fine linear calcifications which extend over approximately 9.0 cm of tissue. These calcifications are worrisome in appearance. ??As such, the patient will be scheduled to return for stereotactic core biopsy of both sites. Other scattered, more punctate calcifications are also noted throughout the right breast. ?? IMPRESSION: ??Magnification views of the right breast reveal two areas of ? FINAL ?CONTINUED ?Page ??1 ? RADIOLOGY REPORT ?[facility] ? [address] ??[place], [place] [address] ? NAME: KAROLINAEILEENANURADHA ? : ??[birth year] ??MR#: [id number] ? LOC: ?? CO ? AGE: 43Y ?? Pt type: CO ?Exam Date: 12/24/088 ? SEX: F ?? AN#:[id number] ?Ck-in#: [id number] ? Dino HERRERA ? [address] ? [address] ? [place] ?[place] ?[address] ? Checkin-Exam Code Summary ? [id number] indeterminate calcifications at the 12 and 6 o'clock positions. At the 12 o'clock position the calcifications span over approximately 4.9 cm of tissue. At the 6 o'clock position they span over approximately 9.0 cm of tissue. Biopsy of both areas is recommended. Patient will be scheduled to return for stereotactic core biopsy. ?? BI-RADS Category IV-C. Highly Suspicious. ?? RECOMMENDATION: ??Stereotactic core biopsy of two areas of calcifications in the right breast. ??The patient will be scheduled to return for this. ?? iCAD was utilized. ?? A letter, in lay terminology, with the results of this exam was given to the patient at the time of the visit. ?/READ BY/ ANURADHA BACA ?/Released By/ ANURADHA BACA ?Released By Date/Time: ??12/24/08 1535 ?Millwork Estimator: ??LS ? FINAL ? Page ??2 ? RADIOLOGY REPORT us See Report Interface IMG MAMMOGRAPHY ORDERABLES Final Result documented in this encounter Visit Diagnoses Not on filedocumented in this encounter Care Teams Airplane Pilot Crop Dusting Relationship Specialty Start Date End Date Alessandro Trejo MD PCP - General 10/12/14 documented as of this encounter
--- OUTSIDE RECORDS SUMMARY | 2024-01-22 19:52 | XMS_ITS | Encounter Summary ---
Author Organization [facility] Address [address] [place] [address] Care Team Providers Care Marine Welder Name Role Phone Lisa Trejo MD Primary Care Provider + [phone] Encounter Details Date Type Department Care Team (Late st Contact Info) Description 09/03/2012 Historical Mammograp hy [place] [facility] [place] [address] [facility] [facility] [place] [address] Interface, See Report Social History [...] Associated Diagnosis Comments MAMMO HISTORICAL RESULT Routine 09/03/2012 9:25 AM EDT documented in this encounter Results * MAMMO HISTORICAL RESULT (09/03/2012 9:25 AM EDT) Anatomical Region Laterality Modality Breast Mammography 09/03/2012 9:25 AM EDT Narrative 09/03/2012 12:20 PM EDT ?[facility] [place] [place] ? [address] ??[place], [place] [address] ? NAME: ANURADHA CRONIN ? : ??[birth year] ??MR#: [id number] ? LOC: ?? CO ? AGE: 46Y ?? Pt type: CO ?Exam Date: 09/03/12926 ? SEX: F ?? AN#:[id number] ?Ck-in#: [id number] ? ANDRES,LISA W ? [address] ? [address] ? [place] ?[place] ?[address] ? Chk-in # ?? Order ?Exam ?[id number] ?? 0001 ? [id number] ??BC MAMM DIAG UNILAT DIG PNL*L ? Ord Diag: ABN MMG ? LEFT DIGITAL DIAGNOSTIC MAMMOGRAM: ?? CLINICAL INDICATION: ??46-year-old patient presents for six month mammographic followup of the left breast. She is being followed for probably benign calcifications. She has been no reported breast complaints. She is status post a prior right breast mastectomy in 2008. She is also status post a left breast reduction surgery in 2009. She is also status post a stereotactic core biopsy of an asymmetric density in the left upper outer quadrant in 2010 which was benign. ?? TECHNIQUE: Routine digital CC and MLO views of the left breast were performed and supplemented with left CC and ML magnification views. ?? COMPARISON: 02/07/2012, 05/26/2010, 05/03/2010, 01/05/2010, 07/04/2009 and 01/18/2009. ?? FINDINGS: ??There are scattered fibroglandular densities which could obscure a lesion on mammography. ?? The fibroglandular pattern is stable. This includes the core biopsy site in the deep left upper-outer quadrant. There is also a core biopsy site in the more superior lower outer quadrant from a prior benign ultrasound guided core biopsy. The calcifications being followed in the left anterior upper inner quadrant are stable. They are coarse and punctate in morphology on magnification imaging. Some appear to project within the skin. ?? IMPRESSION: ??Stable mammographic appearance of the left breast including ? FINAL ?CONTINUED ?Page ??1 ? RADIOLOGY REPORT ?[facility] [place] [place] ? [address] ??[place], [place] [address] ? NAME: ANURADHA CRONIN ? : ??[birth year] ??MR#: [id number] ? LOC: ?? CO ? AGE: 46Y ?? Pt type: CO ?Exam Date: 09/03/12926 ? SEX: F ?? AN#:[id number] ?Ck-in#: [id number] ? ANDRES,LISA W ? [address] ? [address] ? [place] ?[place] ?[address] ? Checkin-Exam Code Summary ? [id number] the probably benign calcifications being followed in the upper inner quadrant. ??Recommend an additional six month mammographic followup of the left breast with magnification views. ?? ACR BI-RADS CATEGORY: ??III, PROBABLY BENIGN. ?? RECOMMENDATION: ??Six month followup left breast diagnostic mammogram to include left CC and ML magnification views. ?? iCAD was utilized. ?? The standard false-negative rate of mammography is between 10 and 25%. Complex patterns or increased breast density will markedly elevate the false-negative rate of mammography. ? A letter, in lay terminology, with the results of this exam was given to the patient at the time of the visit. ?/READ BY/ ANURADHA MARS ?/Released By/ ANURADHA MARS ?Released By Date/Time: ??09/03/12 1218 ?Geek Squad Autotech: ??MJP ? FINAL ? Page ??2 ? RADIOLOGY REPORT us See Report Interface IMG MAMMOGRAPHY ORDERABLES Final Result documented in this encounter Visit Diagnoses Not on filedocumented in this encounter Care Teams Marine Welder Relationship Specialty Start Date End Date Lisa Trejo MD PCP - General 10/12/14 documented as of this encounter
--- OUTSIDE RECORDS SUMMARY | 2024-01-22 19:52 | XMS_ITS | Encounter Summary ---
Author Organization [facility] Address [address] [place] [address] Care Team Providers Care Yarn Inspector Name Role Phone Alessandro Trejo MD Primary Care Provider + [phone] Encounter Details Date Type Department Care Team (Late st Contact Info) Description 05/26/2010 Conversion Encounter [facility] HISTORICAL CONV [address] [place] [address] Interface, See Report Social History [...] Associated Diagnosis Comments MAMMO HISTORICAL RESULT Routine 05/26/2010 10:28 AM EDT CONVERTED (HISTORICAL) SURGICAL PATHOLOGY Routine 05/26/2010 10:28 AM EDT documented in this encounter Results * Converted Surgical Pathology (05/26/2010 10:28 AM EDT) 05/26/2010 10:2 8 AM EDT [facility] LABORATORY - 05/29/2010 11:07 AM EDT [address] [address] SURGICAL PATHOLOGY REPORT Patient Name: ANURADHA CRONIN MR#: [id number] : 1965 Gender: F Ordering Physician: CORA PEREZ Copy To: [facility] Location: [facility] Collected: 05/26/2010 Received: 05/26/2010 Reported: 05/29/2010 Clinical Diagnosis and History The working history is right mastectomy and left breast upper outer quadrant asymmetry. Final Diagnosis LEFT BREAST UPPER OUTER QUADRANT STEREOTACTIC BREAST BIOPSIES: ? Non-proliferative fibrocystic change. DGD/rw COMMENT: This report was faxed to the Radiologists at the [facility] on May 29, 2010. ??DGD/rw Amendments: Electronically Signed Out By ISABEL TOMLIN Specimen(s) Received: Breast, needle biopsy Gross Description Received in formalin labeled left breast stereotactic biopsy consists of mass of fatty soft tissue measuring 2.0cm x 2.0cm x 0.4cm and submitted in toto in a single cassette. ??DGD/rw Microscopic Description Sections of the breast fibrous and adipose tissue show benign duct and lobular elements with the ducts occasionally dilated in ??a background of fibrous elements. ??There is no duct epithelial or lobular epithelial hyperplasia. ??No in-situ or invasive carcinoma is identified. ??DGD/rw Previous Pertinent History [id number], 09/14/09. ??LEFT BREAST TISSUE AND SKIN: ??Benign fibrocystic changes. ([facility]) [id number], 07/05/09. ??LEFT BREAST MASS AT 3 O'CLOCK, ULTRASOUND GUIDED NEEDLE BIOPSIES: Fibroadenoma. ([facility]) [id number], 03/08/09. ??ADDENDUM: ??Template updated to reflect IHC results on biopsy [id number]. 1. RIGHT SENTINEL LYMPH NODES: No metastasis identified (0/2). ??2. 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 ??No invasive tumor identified. ??Two additional lymph nodes negative for metastasis. ??BREAST DCIS (LUMPECTOMY/MASTECTOMY) SPECIMEN TYPE/PROCEDURE: ??Simple mastectomy with sentinel node sampling LYMPH NODE SAMPLING: ??0/2 SPECIMEN INTEGRITY: ??intact SPECIMEN SIZE (3 DIMENSIONS): ??20.5 x 19.0 x 5.5cm LATERALITY: ??Right TUMOR SITE: ??Right breast SIZE (Extent) OF DCIS COMPONENT (greatest dimension): HISTOLOGIC TYPE: ??DCIS NUCLEAR GRADE: ??Low and intermediate grade NECROSIS (PRESENT/ABSENT): ??absent MARGIN STATUS (SPECIFY MARGIN): ??Free DISTANCE FROM MARGIN: ??At least 1.5cm LYMPH NODE STATUS: ??0/4 ESTROGEN RECEPTOR STATUS (IHC): ??Positive per [facility] Case [id number] PROGESTERONE RECEPTOR STATUS (IHC): ??Positive per [facility] Case [id number] ADDITIONAL PATHOLOGIC FINDINGS: n/a ??OTHER STUDIES: ??n/a AJCC PATHOLOGIC STAGE: ??(COMPLETED BY PATHOLOGIST, BASED ONLY ON TISSUE FINDINGS, MORE EXTENSIVE DISEASE MAY NOT BE KNOWN TO THE PATHOLOGIST) pT= ??is pN= ??0 pM= ??0 AJCC PATHOLOGIC STAGE: ??0 ([facility]) [id number], 01/18/99. ??ADDENDUM IMMUNOHISTOCHEMISTRY RESULTS: This tumor shows POSITIVE nuclear staining for Estrogen Receptor (over 100% of tumor nuclei) and POSITIVE staining for Progesterone Receptor (bwqv989% of tumor nuclei). Controls stain appropriately. COMMENT: 1% or greater numbers of nuclei staining of any intensity is considered a positive test in our laboratory. ER clone [place] [employer], [place] clone IE2, IVD approved immunohistochemical stains on formalin fixed, paraffin embedded tissue. ??Template on [facility] Case #[id number] updated with these results. ??1. RIGHT BREAST, STEREOTACTIC BIOPSY, SITE A: Proliferative fibrocystic changes for microcalcifications. 2. 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 ([facility]) Procedures/Addenda us See Report Interface PATHOLOGY/CYTOLOGY ORDERABL ES Final Result [facility] [address] [place] [address], * MAMMO HISTORICAL RESULT (05/26/2010 10:28 AM EDT) Anatomical Region Laterality Modality Breast Mammography 05/26/2010 10:2 8 AM EDT Narrative 05/26/2010 12:10 PM EDT ?[facility] ? [address] ??[place] [address] ? NAME: ANURADHA CRONIN ? : ??[birth year] ??MR#: [id number] ? LOC: ?? CO ? AGE: 44Y ?? Pt type: CO ?Exam Date: 05/26/101030 ? SEX: F ?? AN#:[id number] ?Ck-in#: [id number] ? [facility] ? [address] ? [address] ? [place] ?[place] ?[address] ? Chk-in # ?? Order ?Exam ?[id number] ?? 0001 ? [id number] ??BC MAMM DIAG UNILAT DIG*L ? Ord Diag: ABN MMG ?[id number] ?? 0002 ? [id number] ??BS STEREO BREAST BX EA LESION*L ? Ord Diag: ABN MMG ? 10G SENO-RX VACUUM ASSISTED STEREOTACTIC BIOPSY ? HISTORY: 44 year old patient with a focal asymmetry located in the left upper-outer quadrant. No correlate was identified on ultrasound evaluation or on recent breast MRI. ?? PROCEDURE: ??Written and verbal consent was obtained for stereotactic biopsy of a focal asymmetry in the left upper-outer quadrant. Time-out was observed to verify patient's identitiy and correct location of the breast abnormality. ??The breast was sterilized with chloraprep and 1% lidocaine with and without epinephrine was utilized for local anesthesia. ??A small skin incision was made with a scapel and a 10 gauge Seno-Rx biopsy probe was advanced into the breast. ??The position ot the needle was confirmed with stereotactic images. ??11 core samples were obtained at the biopsy site. ??A specimen radiograph was not obtained. A postbiopsy marking clip was placed. ??Routine CC and ML mammographic images were obtained to document clip position and postbiopsy changes. These images revealed the clip to be well positioned at the biopsy site. No postbiopsy hematomas identified. ?? Upon completion of the procedure, compression was applied to the biopsy site until all appreciable bleeding subsided and a sterile dressing was applied. ??Post biopsy instructions were reviewed with the patient by our breast care nurse. ??A written copy of these instructions was also given ? FINAL ?CONTINUED ?Page ??1 ? RADIOLOGY REPORT ?[facility] ? [address] ??[place] [address] ? NAME: ANURADHA CRONIN ? : ??[birth year] ??MR#: [id number] ? LOC: ?? CO ? AGE: 44Y ?? Pt type: CO ?Exam Date: 05/26/101030 ? SEX: F ?? AN#:[id number] ?Ck-in#: [id number] ? [facility] ? [address] ? [address] ? [place] ?[place] ?[address] ? Checkin-Exam Code Summary ? [phone] to the patient. ??The patient tolerated the procedure well and no immediate complications occurred. ? SUMMARY: ??10 gauge stereotactic and vacuum assisted core biopsy of a focal asymmetry located in the left upper-outer quadrant. ??A marking clip was placed at the biopsy site. The clip is well positioned. Pathology results are pending. ?/READ BY/ CORA YAO ?/Released By/ CORA YAO ?Released By Date/Time: ??05/26/10 1204 ?Nut Threader: ??MH ? FINAL ? Page ??2 ? RADIOLOGY REPORT ?[facility] ? [address] ??[place], [place] [address] ? NAME: ANURADHA CRONIN ? : ??[birth year] ??MR#: [id number] ? LOC: ?? DIS ? AGE: 44Y ?? Pt type: CO ?Exam Date: 05/26/10 1031 ? SEX: F ?? AN#:[id number] ?Ck-in#: [id number] ? [facility] ? [address] ? [address] ? [place] ?[place] ?[address] ? Chk-in # ?? Order ?Exam ?[id number] ?? 0001 ? [id number] ??BC MAMM DIAG UNILAT DIG*L ? Ord Diag: ABN MMG ?[id number] ?? 0002 ? [id number] ??BS STEREO BREAST BX EA LESION*L ? Ord Diag: ABN MMG ? 10G SENO-RX VACUUM ASSISTED STEREOTACTIC BIOPSY ?? HISTORY: 44 year old patient with a focal asymmetry located in the left upper-outer quadrant. No correlate was identified on ultrasound evaluation or on recent breast MRI. ?? PROCEDURE: ??Written and verbal consent was obtained for stereotactic biopsy of a focal asymmetry in the left upper-outer quadrant. Time-out was observed to verify patient's identity and correct location of the breast abnormality. ??The breast was sterilized with chloraprep and 1% lidocaine with and without epinephrine was utilized for local anesthesia. ??A small skin incision was made with a scalpel and a 10 gauge Seno-Rx biopsy probe was advanced into the breast. ??The position ot the needle was confirmed with stereotactic images. ??11 core samples were obtained at the biopsy site. ??A specimen radiograph was not obtained. A postbiopsy marking clip was placed. ??Routine CC and ML mammographic images were obtained to document clip position and postbiopsy changes. These images revealed the clip to be well positioned at the biopsy site. No postbiopsy hematomas identified. ?? Upon completion of the procedure, compression was applied to the biopsy site until all appreciable bleeding subsided and a sterile dressing was applied. ??Post biopsy instructions were reviewed with the patient by our breast care nurse. ??A written copy of these instructions was also given to the patient. ??The patient tolerated the procedure well and no immediate complications occurred. ? SUPPLEMENTAL ? CONTINUED ?Page ??1 ? RADIOLOGY REPORT ?[facility] ? [address] ??[place], [place] [address] ? NAME: KAROLINAEILEENANURADHA ? : ??[birth year] ??MR#: [id number] ? LOC: ?? DIS ? AGE: 44Y ?? Pt type: CO ?Exam Date: 05/26/10 1031 ? SEX: F ?? AN#:[id number] ?Ck-in#: [id number] ? [facility] ? [address] ? [address] ? [place] ?[place] ?[address] ? Checkin-Exam Code Summary ? [id number] ?? SUMMARY: ??10 gauge stereotactic and vacuum assisted core biopsy of a focal asymmetry located in the left upper-outer quadrant. ??A marking clip was placed at the biopsy site. The clip is well positioned. Pathology results are pending. ?? ADDENDUM BY DR. CORA PEREZ - 05/31/2010: ??Final pathology results reveal non proliferative fibrocystic change. ??Background fibrous tissue is noted. ??There is no evidence atypia or carcinoma. ?? Recommend follow up left mammographic imaging in six months. ??The patient was called with final results and recommendations by our breast care nurse on 05/29/2010. ?? /de ?/READ BY/ CORA YAO ?/Released By/ CORA YAO ?Released By Date/Time: ??06/05/101825 ?Nut Threader: ??MH ? SUPPLEMENTAL ?Page ??2 ? RADIOLOGY REPORT us See Report Interface IMG MAMMOGRAPHY ORDERABLES Final Result documented in this encounter Visit Diagnoses Not on filedocumented in this encounter Care Teams Yarn Inspector Relationship Specialty Start Date End Date Alessandro Trejo MD PCP - General 10/12/14 documented as of this encounter
--- OUTSIDE RECORDS SUMMARY | 2024-01-22 19:52 | XMS_ITS | Encounter Summary ---
Author Organization [facility] Address [address] [place] [address] Care Team Providers Care Vehicle Damage Appraiser Name Role Phone Alessandro Trejo MD Primary Care Provider + [phone] Encounter Details Date Type Department Care Team (Late st Contact Info) Description 05/03/2010 Historical Mammograp hy Encounter [facility] CONV [address] [facility] [address] Interface, See Report Social History [...] Associated Diagnosis Comments MAMMO HISTORICAL RESULT Routine 05/03/2010 9:36 AM EDT documented in this encounter Results * MAMMO HISTORICAL RESULT (05/03/2010 9:36 AM EDT) Anatomical Region Laterality Modality Breast Mammography 05/03/2010 9:36 AM EDT Narrative 05/03/2010 4:21 PM EDT ?[facility] ? [address] ??[place], [place] [address] ? NAME: ANURADHA CRONIN ? : ??[birth year] ??MR#: [id number] ? LOC: ?? CO ? AGE: 44Y ?? Pt type: CO ?Exam Date: 05/03/10939 ? SEX: F ?? AN#:[id number] ?Ck-in#: [id number] ? [facility] ? [address] ? [address] ? [place] ?[place] ?[address] ? Chk-in # ?? Order ?Exam ?[id number] ?? 0001 ? [id number] ??BC MAMM DIAG UNILAT DIG PNL*L ? Ord Diag: ABN MMG ? DIAGNOSTIC LEFT MAMMOGRAM AND TARGETED LEFT BREAST ULTRASOUND: ?? HISTORY: 44 year old female status post right mastectomy with an asymmetry found on a left prebreast reduction mammogram dated 07/04/2009. She underwent a benign ultrasound core biopsy of a fibroadenoma in the left breast. The microclip is anterior to the asymmetry. According to notes in the computer the patient underwent a left reduction mammoplasty on 09/14/2009. ??This asymmetry appeared more prominent on followup examination dated 01/05/2010. No definite ultrasound correlate was identified at that time. It was recommended that the patient return for stereotactic core biopsy. The patient stated that she returned however her surgeon was unable to target the area to perform a stereotactic core biopsy. She is here for short-term followup. The patient also informs me that she is undergone a MRSA infection and is awaiting on the results to determine date of bilateral breast reconstruction. ?? TECHNIQUE: ??Standard views of the left breast, spot compression views and targeted left breast ultrasound. ?? FILM COMPARISON: ??Comparison is made to left mammograms dated 01/05/2010, 07/04/2009, 01/07/2009. ?? FINDINGS: The breast tissue is composed of scattered fibroglandular densities. A low density macrolobulated mass persists in the upper outer quadrant of the left breast. ?Targeted left breast ultrasound was performed. This area could not be found under sonographic guidance. ?? IMPRESSION: BI-RADS 0, incomplete exam. ??Please accept this as a ? FINAL ?CONTINUED ?Page ??1 ? RADIOLOGY REPORT ?[facility] ? [address] ??[place], [place] [address] ? NAME: ANURADHA CRONIN ? : ??[birth year] ??MR#: [id number] ? LOC: ?? CO ? AGE: 44Y ?? Pt type: CO ?Exam Date: 05/03/10939 ? SEX: F ?? AN#:[id number] ?Ck-in#: [id number] ? [facility] ? [address] ? [address] ? [place] ?[place] ?[address] ? Checkin-Exam Code Summary ? [id number] sufficient order for the additional imaging. ?? RECOMMENDATION: As patient is 44 years old with a history of right mastectomy and has not had a breast MRI, breast MRI is recommended to evaluate for this low density mass in the left breast. If this area is visualized under MRI, consideration for MRI guided biopsy could be given. If this area is not visualized under MRI repeat attempted stereotactic core biopsy would be recommended. ?? iCAD was utilized. ?? The standard false-negative rate of mammography is between 10 and 25%. Complex patterns or increased breast density will markedly elevate the false-negative rate of mammography. ? A results letter, in lay terminology, will be given to the patient at the conclusion of the exam. ?/READ BY/ J CARLOS DUEÑAS ?/Released By/ J CARLOS DUEÑAS ?Released By Date/Time: ??05/03/108 ?Lobby Concierge: ??MJP ? FINAL ? Page ??2 ? RADIOLOGY REPORT ?[facility] ? [address] ??[place], [place] [address] ? NAME: KAROLINAEILEENANURADHA ? : ??[birth year] ??MR#: [id number] ? LOC: ?? DIS ? AGE: 44Y ?? Pt type: CO ?Exam Date: 05/03/10939 ? SEX: F ?? AN#:[id number] ?Ck-in#: [id number] ? [facility] ? [address] ? [address] ? [place] ?[place] ?[address] ? Chk-in # ?? Order ?Exam ?[id number] ?? 0001 ? [id number] ??BC MAMM DIAG UNILAT DIG PNL*L ? Ord Diag: ABN MMG ?[id number] ?? 0002 ? [id number] ??BU US BREAST UNILATERAL*L ? Ord Diag: ABN MMG ? DIAGNOSTIC LEFT MAMMOGRAM AND TARGETED LEFT BREAST ULTRASOUND: ?? HISTORY: 44 year old female status post right mastectomy with an asymmetry found on a left prebreast reduction mammogram dated 07/04/2009. She underwent a benign ultrasound core biopsy of a fibroadenoma in the left breast. The microclip is anterior to the asymmetry. According to notes in the computer the patient underwent a left reduction mammoplasty on 09/14/2009. ??This asymmetry appeared more prominent on followup examination dated 01/05/2010. No definite ultrasound correlate was identified at that time. It was recommended that the patient return for stereotactic core biopsy. The patient stated that she returned however her surgeon was unable to target the area to perform a stereotactic core biopsy. She is here for short-term followup. The patient also informs me that she is undergone a MRSA infection and is awaiting on the results to determine date of bilateral breast reconstruction. ?? TECHNIQUE: ??Standard views of the left breast, spot compression views and targeted left breast ultrasound. ?? FILM COMPARISON: ??Comparison is made to left mammograms dated 01/05/2010, 07/04/2009, 01/07/2009. ?? FINDINGS: The breast tissue is composed of scattered fibroglandular densities. A low density macrolobulated mass persists in the upper outer quadrant of the left breast. ?Targeted left breast ultrasound was performed. This area could not be found under sonographic guidance. ? SUPPLEMENTAL X 2 ? CONTINUED ?Page ??1 ? RADIOLOGY REPORT ?[facility] ? [address] ??[place], [place] [address] ? NAME: ANURADHA CRONIN ? : ??[birth year] ??MR#: [id number] ? LOC: ?? DIS ? AGE: 44Y ?? Pt type: CO ?Exam Date: 05/03/10 0940 ? SEX: F ?? AN#:[id number] ?Ck-in#: [id number] ? [facility] ? [address] ? [address] ? [place] ?[place] ?[address] ? Checkin-Exam Code Summary ? [id number],[phone] ?? IMPRESSION: BI-RADS 0, incomplete exam. ??Please accept this as a sufficient order for the additional imaging. ?? RECOMMENDATION: As patient is 44 years old with a history of right mastectomy and has not had a breast MRI, breast MRI is recommended to evaluate for this low density mass in the left breast. If this area is visualized under MRI, consideration for MRI guided biopsy could be given. If this area is not visualized under MRI repeat attempted stereotactic core biopsy would be recommended. ?? iCAD was utilized. ?? The standard false-negative rate of mammography is between 10 and 25%. Complex patterns or increased breast density will markedly elevate the false-negative rate of mammography. ? A results letter, in lay terminology, will be given to the patient at the conclusion of the exam. ?/READ BY/ J CARLOS DUEÑAS ?/Released By/ J CARLOS DUEÑAS ?Released By Date/Time: ??05/03/10 1618 ?Lobby Concierge: ??MJP ? SUPPLEMENTAL X 2 ?Page ??2 ? RADIOLOGY REPORT us See Report Interface IMG MAMMOGRAPHY ORDERABLES Final Result documented in this encounter Visit Diagnoses Not on filedocumented in this encounter Care Teams Vehicle Damage Appraiser Relationship Specialty Start Date End Date Alessandro Trejo MD PCP - General 10/12/14 documented as of this encounter
--- OUTSIDE RECORDS SUMMARY | 2024-01-22 19:52 | XMS_ITS | Encounter Summary ---
[facility] Organization [facility] Address [address] [place] [address] Care Team Providers Care Account Support Rep Name Role Phone Alessandro Trejo MD Primary Care Provider + [phone] Reason for Visit * Reason Comments Med Refill Encounter Details Date Type Department Care Team (Late st Contact Info) Description 12/11/2016 Refill [facility] CARD[facility]OLOG[facility] [address] [place] [address] Cindy Allison MD [address] [facility] [address] [place] [address] Med Refill Social History Tobacco Use Types Packs/Day Years [...] as of this encounter Visit Diagnoses Diagnosis Nonischemic cardiomyopathy Other primary cardiomyopathies documented in this encounter Care Teams Account Support Rep Relationship Specialty Start Date End Date Alessandro Trejo MD PCP - General 10/12/14 documented as of this encounter
--- OUTSIDE RECORDS SUMMARY | 2024-01-22 19:52 | XMS_ITS | Encounter Summary ---
[facility] Address [address] [place] [address] Care Team Providers Care Tempering Oven Operator Name Role Phone Alessandro Trejo MD Primary Care Provider + [phone] Encounter Details Date Type Department Care Team (Late st Contact Info) Description 04/07/2013 Conversion Encounter [facility]V [address] [facility] [place] [address] Interface, See Report Social History [...] Name Priority Date/Time Associated Diagnosis Comments ECHO - CONVERTED Routine 04/07/2013 2:14 PM EST documented in this encounter Results * CONVERTED (HISTORICAL) ECHO (04/07/2013 2:14 PM EST) Anatomical Region Laterality Modality Ultrasound 04/07/2013 2:14 PM EST Narrative 04/07/2013 2:14 PM EST Patient: ?ANURADHA CRONIN ?? Med Rec#: ? [id number] ? : ?1965 ? Date: ? 04/07/2013 ?Age: ?47y ? Height: ? 165.1 cm / 65.0 in Weight: ? 74.84 kg / 164.9 lbs Sex: ?F ? BSA: ?1.82 Room#: ?OP ? Manager Equipment: ??Thania Byers RDCS, RDMS Referring: ?Alessandro Trejo Reading: ?Cindy Allison MD Transthoracic Echocardiogram Indication: CM BP: ? 113/61 Conclusions 1. The estimated ejection fraction is 55-60%. 2. There is a trace of mitral regurgitation. 3. There is a trace tricuspid regurgitation. Findings ? Technical Comments: The study quality is good. ?? Left Ventricle: The left ventricular chamber size is normal. Global left ventricular wall motion and contractility are within normal limits. There is normal left ventricular systolic function. The estimated ejection fraction is 55-60%. ?? Left Atrium: The left atrial chamber size is normal. Right Ventricle: The right ventricular cavity size is normal. The right ventricular global systolic function is normal. Right Atrium: The right atrial cavity size is normal. No atrial septal defect is visualized. Aortic Valve: The aortic valve is trileaflet. There is no evidence of aortic regurgitation. There is no evidence of aortic stenosis. Mitral Valve: The mitral valve leaflets appear normal. There is no evidence of mitral valve prolapse. There is a trace of mitral regurgitation. There is no evidence of mitral stenosis. Tricuspid Valve: The tricuspid valve leaflets are normal. ??There is a trace tricuspid regurgitation. ?? Pulmonic Valve: The pulmonic valve appears normal. There is a trace pulmonic regurgitation. ?? Pericardium: There is no evidence of pericardial effusion. Aorta: There is no dilatation of the aortic root. Pulmonary Artery: The main pulmonary artery appears normal. Venous: The venous system appears normal. Measurements Chambers Name ?Value ? RVIDd (AP) 2D ? 1.7 cm ? IVSd (2D) ? 0.87 cm ? LVIDd (2D) ?4.13 cm ? LVIDs (2D) ?2.92 cm ? LVPWd (2D) ?0.7 cm ? EF (2D) ? 56.6 % ? Ao root diameter (2D) ?? 2.6 cm ? LA dimension (AP) 2D ?2.3 cm ? LA:Ao ratio (2D) ?0.88 ratio ? Volumes Name ?Value ? LV EDV SP 4CH (MOD) ? 59 ml ? LV ESV SP 4CH (MOD) ? 28 ml ? EF SP 4CH (MOD) ? 51 % ? Diastolic/Systolic Function Name ?Value ? MV E-wave Vmax ?0.76 m/sec ? MV A-wave Vmax ?0.74 m/sec ? MV E:A ratio ?1 ratio ? LV lateral e' Vmax ?0.15 m/sec ? LV E:e' lateral ratio ?? 4.9 ratio ? Aortic Valve Name ?Value ? AV Vmax ? 1.45 m/sec ? AV peak gradient ?8 mmHg ? Pulmonic Valve/Qp:Qs Name ?Value ? PV Vmax ? 0.98 m/sec ? PV peak gradient ?4 mmHg ? Procedure Note Interface, See Report - 07/29/2015 Patient: ANURADHA CRONIN [facility] Rec#: [id number] : 1965 Date: 04/07/2013 Age: 47y Height: 165.1 cm / 65.0 in Weight: 74.84 kg / 164.9 lbs Sex: F BSA: 1.82 Room#: OP Manager Equipment: Thania Byers RDCS, BRYCE Referring: Alessandro Trejo Reading: Cindy Allison MD Transthoracic Echocardiogram Indication: CM BP: 113/61 Conclusions 1. The estimated ejection fraction is 55-60%. 2. There is a trace of mitral regurgitation. 3. There is a trace tricuspid regurgitation. Findings Technical Comments: The study quality is good. Left Ventricle: The left ventricular chamber size is normal. Global left ventricular wall motion and contractility are within normal limits. There is normal left ventricular systolic function. The estimated ejection fraction is 55-60%. Left Atrium: The left atrial chamber size is normal. Right Ventricle: The right ventricular cavity size is normal. The right ventricular global systolic function is normal. Right Atrium: The right atrial cavity size is normal. No atrial septal defect is visualized. Aortic Valve: The aortic valve is trileaflet. There is no evidence of aortic regurgitation. There is no evidence of aortic stenosis. Mitral Valve: The mitral valve leaflets appear normal. There is no evidence of mitral valve prolapse. There is a trace of mitral regurgitation. There is no evidence of mitral stenosis. Tricuspid Valve: The tricuspid valve leaflets are normal. There is a trace tricuspid regurgitation. Pulmonic Valve: The pulmonic valve appears normal. There is a trace pulmonic regurgitation. Pericardium: There is no evidence of pericardial effusion. Aorta: There is no dilatation of the aortic root. Pulmonary Artery: The main pulmonary artery appears normal. Venous: The venous system appears normal. Measurements Chambers Name Value RVIDd (AP) 2D 1.7 cm IVSd (2D) 0.87 cm LVIDd (2D) 4.13 cm LVIDs (2D) 2.92 cm LVPWd (2D) 0.7 cm EF (2D) 56.6 % Ao root diameter (2D) 2.6 cm LA dimension (AP) 2D 2.3 cm LA:Ao ratio (2D) 0.88 ratio Volumes Name Value LV EDV SP 4CH (MOD) 59 ml LV ESV SP 4CH (MOD) 28 ml EF SP 4CH (MOD) 51 % Diastolic/Systolic Function Name Value MV E-wave Vmax 0.76 m/sec MV A-wave Vmax 0.74 m/sec MV E:A ratio 1 ratio LV lateral e' Vmax 0.15 m/sec LV E:e' lateral ratio 4.9 ratio Aortic Valve Name Value AV Vmax 1.45 m/sec AV peak gradient 8 mmHg Pulmonic Valve/Qp:Qs Name Value PV Vmax 0.98 m/sec PV peak gradient 4 mmHg us See Report Interface CV ECHO ORDERABLES Final Re sult documented in this encounter Visit Diagnoses Not on filedocumented in this encounter Care Teams Tempering Oven Operator Relationship Specialty Start Date End Date Alessandro Trejo MD PCP - General 10/12/14 documented as of this encounter
--- OUTSIDE RECORDS SUMMARY | 2024-01-22 19:52 | XMS_ITS | Encounter Summary ---
Author Organization [facility] Address [address] [place] [address] Care Team Providers Care Senior Mortgage Underwriter Name Role Phone Unavailable Primary Care Provider Unavailabl e Encounter Details Date Type Department Care Team (Late st Contact Info) Description 06/09/2013 9:19 AM EDT - 06/09/2013 11:59 PM EDT Hospital Encounter [facility] [address] [place] [address] [address] [place] [address] Alessandro Trejo MD [address] [facility] [address] [place] [address] Social History Tobacco Use Types Packs/Day Years [...] Associated Diagnosis Comments US BREAST UNILATERAL Routine 06/09/2013 10:46 AM EDT MAMMO DIAGNOSTIC UNILATERAL Routine 06/09/2013 9:20 AM EDT documented in this encounter Results * ULTRASOUND BREAST UNILATERAL (06/09/2013 10:46 AM EDT) Anatomical Region Laterality Modality Breast Ultrasound 06/09/2013 10:4 6 AM EDT Narrative 06/09/2013 11:19 AM EDT LEFT DIAGNOSTIC DIGITAL MAMMOGRAM: HISTORY: Patient is a 47-year-old female with history of right mastectomy. She had a left reduction mastopexy at the same time and calcifications on the left which were felt to potentially be post reduction calcifications are being followed. TECHNIQUE: ??Standard MLO and CC views were performed as well as magnification views. Spot and rolled views were also performed on the left. FINDINGS: ??There is new oval mass measuring about 6 to 7 mm in the 12:00 position of the left breast. Ultrasound shows this to represent a probable cluster of cysts. Also an asymmetry in the anterior left breast appear to be slightly more prominent but this resolved into normal appearing tissue with spot and rolled views. IMPRESSION- ??No significant interval change. RECOMMENDATION: ??Six-month left followup. Continued magnification of the calcifications. Followup of the mass felt to represent a cluster of cysts as well in the 12:00 position. ?? BI-RADS CATEGORY III, PROBABLY BENIGN. iCAD was utilized. The standard false-negative rate of mammography is between 10% and 25%. Complex patterns or increased breast density will markedly elevate the false-negative rate of mammography. The results, in lay terminology, were given to the patient at the conclusion of her exam. ?? Physician Order: Diagnostic six month followup mammogram with breast ultrasound if needed. ?? Diagnosis: ??Abnormal Mammogram. ? Fitness Worker- JERAD GOODWIN ? Reading Radiologist- MARQUES VALENTE ? Releasing Radiologist- MARQUES VALENTE ? Released Date Time- 06/09/13 1438 us Alessandro Trejo MD [facility] US ORDERABLES Final Resu lt * MAMMOGRAPHY DIAGNOSTIC UNILATERAL (06/09/2013 9:20 AM EDT) Anatomical Region Laterality Modality Breast N/A Mammography 06/09/2013 9:20 AM EDT Narrative 06/09/2013 11:19 AM EDT LEFT DIAGNOSTIC DIGITAL MAMMOGRAM: HISTORY: Patient is a 47-year-old female with history of right mastectomy. She had a left reduction mastopexy at the same time and calcifications on the left which were felt to potentially be post reduction calcifications are being followed. TECHNIQUE: ??Standard MLO and CC views were performed as well as magnification views. Spot and rolled views were also performed on the left. FINDINGS: ??There is new oval mass measuring about 6 to 7 mm in the 12:00 position of the left breast. Ultrasound shows this to represent a probable cluster of cysts. Also an asymmetry in the anterior left breast appear to be slightly more prominent but this resolved into normal appearing tissue with spot and rolled views. IMPRESSION- ??No significant interval change. RECOMMENDATION: ??Six-month left followup. Continued magnification of the calcifications. Followup of the mass felt to represent a cluster of cysts as well in the 12:00 position. ?? BI-RADS CATEGORY III, PROBABLY BENIGN. iCAD was utilized. The standard false-negative rate of mammography is between 10% and 25%. Complex patterns or increased breast density will markedly elevate the false-negative rate of mammography. The results, in lay terminology, were given to the patient at the conclusion of her exam. ?? Physician Order: Diagnostic six month followup mammogram with breast ultrasound if needed. ?? Diagnosis: ??Abnormal Mammogram. ? Fitness Worker- JERAD GOODWIN ? Reading Radiologist- MARQUES MENDEZSEY-MD ? Releasing Beth VALENTE ? Released Date Time- 06/09/13 1438 us Alessandro Trejo MD IMG MAMMOGRAPHY ORDERABLES F inal Result documented in this encounter Visit Diagnoses Not on filedocumented in this encounter
--- OUTSIDE RECORDS SUMMARY | 2024-01-22 19:52 | XMS_ITS | Encounter Summary ---
[facility] Address [address] [place] [address] Care Team Providers Care Data Integration Analyst Name Role Phone Alessandro Trejo MD Primary Care Provider + [phone] Reason for Visit * Reason Comments Cardiomyopathy Encounter Details Date Type Department Care Team (Late st Contact Info) Description 11/10/2015 3:30 PM EDT Office Visit [facility] [address] [facility] [address] [place] [phone] Cindy Allison MD [address] [facility] [place] [address] Nonischemic cardiomyopathy (Primary Dx) Social History Tobacco Use Types Packs/Day Years Used Date Smoking Tobacco: Every Day Cigarettes Smokeless Tobacco: Never Alcohol Use Standard Drinks/Week Comments No 0 (1 standard drink = 0.6 oz pur e alcohol) Comments Unknown Sex and Gender Information Value Date Recorded Sex Assigned at Not on file Legal Sex Female 10:15 AM EDT Gender Identity Not on file Sexual Orientation Not on file documented as of this encounter Last Filed Vital Signs Vital Sign Reading Time Taken Comments Blood Pressure 108/62 11/10/2015 3:47 PM EDT Pulse 92 11/10/2015 3:47 PM EDT Temperature - - Respiratory Rate - - Oxygen Saturation - - Inhaled Oxygen Concentration - - Weight 77 kg (169 lb 12.8 oz) 11/10/2015 3:47 PM EDT Height 165.1 cm (5' 5 ) 11/10/2015 3:47 PM EDT Body Mass Index 28.26 11/10/2015 3:47 PM EDT documented in this encounter Progress Notes * Cindy Allison MD - 11/10/2015 3:45 PM EDT Encounter Date:11/10/2015 Location: [place] Alessandro Trejo MD Patient ID: 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 1965 Subjective: Chief Complaint/Reason for visit: Chief Complaint Patient presents with ??? Cardiomyopathy Problem List: 1. 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 Echocardiogram, [...] MR, trace TR. h. Echocardiogram 05/13/14: EF 55-60%,trace MR,TR,AR 2. Lower extremity edema. 3. , A1: a. Due date 04/24/2008; delivered on April 16. 4. Right breast carcinoma: a. Diagnosis by abnormal mammogram. b. Mastectomy, 02/05/2009. c. Complication with methicillin-resistant Staphylococcus aureus infection and subsequent explantation of kelp cutter prosthesis. 5. Thoracic outlet syndrome. 6. Restless Leg Syndrome. 7. Tobacco Abuse Ongoing 8. Surgical history: a. Endometriosis, exploratory laparoscopies in 1983 and 2003. b. Cholecystectomy in 2004. HPI: Mrs. Cui is a 50 yr old white female with the above noted medical history who presents for 16 month follow-up of her non-ischemic cardiomyopathy and lower extremity edema.When she was last seen her EF had returned to normal. She is doing fairly well. She states that some days she feels good and other days she has some shortness of breath and generalized weakness. She has a chronic coughthat has been present since 2008. She denies any symptoms of chest pain, pressure or tightness. Shehas started smoking again. Dr. Allison discussed the need for 30 minutes of exercise 4-5 daysper week. Social History Social History ??? Marital status: Single Spouse name: N/A ??? Number of children: N/A ??? Years of education: N/A Occupational History ??? Not on file. Social History Main Topics ??? Smoking status: Current Every Day Smoker Packs/day: 0.50 Types: Cigarettes ??? Smokeless tobacco: Never Used ??? Alcohol use No ??? Drug use: No ??? Sexual activity: Defer Other Topics Concern ??? Not on file Social History Narrative family history includes Arrhythmia in her mother. has a past medical history of Carcinoma of right breast; Lower extremity edema; Nonischemic cardiomyopathy; ; and Thoracic outlet syndrome. Allergies Allergen Reactions ??? Bactrim [Sulfamethoxazole-Trimethoprim] Other (See Comments) pruritus ??? Codeine Nausea Only ??? Lisinopril Other (See Comments) fatigue ??? Sectral [Acebutolol Hcl] Other (See Comments) fatigue Current Outpatient Prescriptions: ??? triamterene-hydrochlorothiazide (MAXZIDE-25) 37.5-25 MG per tablet, Take 1 tablet by mouth daily., Disp: , Rfl: Coreg 6.25 po bid Review of Systems Cardiovascular: Positive for dyspnea on exertion and leg swelling. Negative for chest pain, irregular heartbeat, near-syncope, orthopnea, palpitations, paroxysmal nocturnal dyspnea and syncope. Respiratory: Positive for cough and shortness of breath. Vitals: 11/10/15 1547 BP: 108/62 Pulse: 92 Objective: Physical Exam Constitutional: She is oriented to person, place, and time. She appears well- developed and well-nourished. Cardiovascular: Normal rate, regular rhythm and normal heart sounds. Exam reveals no gallop and no friction rub. No murmur heard. Pulmonary/Chest: Effort normal and breath sounds normal. No respiratory distress. She has no wheezes. She has no rales. Musculoskeletal: She exhibits no edema. Neurological: She is alert and oriented to person, place, and time. Skin: Skin is warm and dry. Psychiatric: She has a normal mood and affect. Her behavior is normal. Data Review: Procedures Labs from June [address] Allison Assessment & Plan: Problem List Items Addressed This Visit Cardiovascular and Mediastinum Nonischemic cardiomyopathy - Primary Anuradha was seen today for cardiomyopathy. Diagnoses and all orders for this visit: Nonischemic cardiomyopathy - bisoprolol (ZEBETA) 5 MG tablet; Take 1 tablet by mouth daily. - triamterene-hydrochlorothiazide (MAXZIDE-25) 37.5-25 MG per tablet; Take 1 tablet by mouth daily. Discontinue Coreg secondary to chronic cough Add Zebeta 5 mg po daily Refill Maxide Follow up in 1 year sooner if needed. Begin Exercise program for 30 min 4-5 days per week Scribed for Cindy Allison MD by Mine Crawford RN. 11/10/2015 4:06 PM ICindy MD, personally performed the services described in this documentation asscribed by the above named individual in my presence, and it is both accurate and complete. 11/10/2015 4:36 PM documented in this encounter Plan of Treatment Not on file documented as of this encounter Visit Diagnoses Diagnosis Nonischemic cardiomyopathy- Primary Other primary cardiomyopathies documented in this encounter Care Teams Data Integration Analyst Relationship Specialty Start Date End Date Alessandro Trejo MD PCP - General 10/12/14 documented as of this encounter
--- OUTSIDE RECORDS SUMMARY | 2024-01-22 19:52 | XMS_ITS | Encounter Summary ---
Author Organization [facility] Address [address] [place] [address] Care Team Providers Care Casting Wheel Operator Name Role Phone Alessandro Trejo MD Primary Care Provider + [phone] Reason for Referral * Hospital - Outpatient (Routine) - Closed Specialty Diagnoses / Procedures Referred By Tonie leigh Referred To Contact Radiology Diagnoses Abnormal mammogram Procedures US Guided Breast Biopsy With & Without Device initial Alessandro Trejo MD Phone: tel: fax: Referral ID Status Reason Start Date Expiration Date Visits Re quested Visits Authorized [id number] Closed 11/16/2020 11/16/2021 1 1 Reason for Visit * Hospital - Outpatient (Routine) - Closed Specialty Diagnoses / Procedures Referred By Tonie leigh Referred To Contact Radiology Diagnoses Abnormal mammogram Procedures US Guided Breast Biopsy With & Without Device initial Alessandro Trejo MD Phone: tel: fax: Referral ID Status Reason Start Date Expiration Date Visits Re quested Visits Authorized [id number] Closed 11/16/2020 11/16/2021 1 1 Encounter Details Date Type Department Care Team (Late st Contact Info) Description 12/20/2020 1:58 PM EDT - 12/20/2020 11:59 PM EDT Hospital Encounter [facility] [address] [facility] [address] [place] [id number] Anuradha Wood MD [address] [facility] [address] [place] [address] Abnormal mammogram Discharge Disposition: Home or Self [...] 12/11/2016 2 documented as of this encounter Progress Notes * Pippa Chamberlain RN - 12/20/2020 2:00 PM EDT Alert and orientated. Denies discomfort., No active bleeding., Steri-strips not visualized, gauze dressing intact. Ice packs given. Verbalizes and demonstrates understanding of post-care instructions, written copy given. documented in this encounter Plan of Treatment Not on file documented as of this encounter Procedures Procedure Name Priority Date/Time Associated Diagnosis Comments US GUIDED BREAST BIOPSY W WO DEVICE INITIAL Routine 12/20/2020 3:10 PM EDT Abnormal mammogram TISSUE PATHOLOGY EXAM Routine 12/20/2020 2:48 PM EDT documented in this encounter Results * US Guided Breast Biopsy With & Without Device initial (12/20/2020 3:10 PM EDT) Anatomical Region Laterality Modality Breast N/A Ultrasound Tissue 12/20/2020 5:20 PM EDT Addenda Addendum by [...] 10:[address] Anuradha Wood MD. us Alessandro Trejo MD IMG US ORDERABLES Edited Res ult - Final * Tissue Pathology Exam (12/20/2020 2:48 PM EDT) Case Report Surgical Pathology Report ? Case: [id number] ? Authorizing Provider: ??Anuradha Wood MD ? Collected: ? 12/20/2020 02:48 PM ? Ordering Location: ? [facility] ?? Received: ?12/21/2020 07:24 AM ? [facility] 1760 ? ULTRASOUND ? Pathologist: ? Aurelio Johnson MD ? Specimen: ?Breast, Left, Left breast 4:00 0.6 cm mass ? 12/23/2020 11:12 AM EDT [facility] Clinical Information Abnormal mammogram, left breast 4:00 0.6 cm mass. 12/23/2020 11:12 AM EDT [facility] Final Diagnosis LEFT BREAST, 4:00, BIOPSY: At least atypical ductal hyperplasia. Negative for invasive carcinoma. GJK 12/23/2020 11:12 AM [facility] Comment This report was sent to the radiologist at [facility] on 12/23/20. 12/23/2020 11:12 AM EDT [facility] Gross Description Specimen 1 is received in formalin labeled left breast 4:00 ultrasound-guided biopsy and consists of a 1.6 x 0.9 x 0.5 cm aggregate of multiple fragments of yellow-dawkins fibroadipose breast tissue placed in formalin at 1448 on 12/20/2020, submitted entirely in 1A. Total time in formalin is greater than 6 and less than 72 hours. CLB 12/23/2020 11:12 AM [facility] Special Stains IHC stains performed with adequate controls. ER, CK 5/6, p63, and myosin heavy chain support the diagnosis. 12/23/2020 11:12 AM EDT [facility] Microscopic Description The slides are reviewed and demonstrate histopathologic features supporting the above rendered diagnosis. 12/23/2020 11:12 AM T [facility] Tissue Specimen from breast / Unknown Collection / Unknown 12/20/2020 2:48 PM EDT 12/21/2020 7:24 AM EDT us Anuradha Wood MD PATHOLOGY/CYTOLOGY ORDERABLES Final Result [facility]
[address] [place] [address], [place] [phone] documented in this encounter Visit Diagnoses Diagnosis Abnormal mammogram Abnormal mammogram, unspecified documented in this encounter Administered Medications Inactive Administered Medications - up to 3 most recent administrations Medication Order MAR Action Action Date Dose Rate Site lidocaine (XYLOCAINE) 1 % injection 5 mL 5 mL, Injection, Once, On Sat12/20/20 at 1509, For 1 dose Given 12/20/2020 3:08 PM EDT 4 mL lidocaine 1% - EPINEPHrine 1:[id number] (XYLOCAINE W/EPI) 1 %-1:898111 injection 10 mL 10 mL, Injection, Once, On Sat12/20/20 at 1509, For 1 dose Given 12/20/2020 3:08 PM EDT 3 mL documented in this encounter Care Teams Casting Wheel Operator Relationship Specialty Start Date End Date Alessandro Trejo MD PCP - General 10/12/14 documented as of this encounter
--- OUTSIDE RECORDS SUMMARY | 2024-01-22 19:52 | XMS_ITS | Encounter Summary ---
Author Organization [facility] Address [address] [place] [address] Care Team Providers Care Operating Room Registered Nurse Name Role Phone Unavailable Primary Care Provider Unavailabl e Encounter Details Date Type Department Care Team (Late st Contact Info) Description 06/10/2014 10:44 AM EDT - 06/10/2014 11:59 PM EDT Hospital Encounter [facility] [address] [place] [address] [address] [place] [address] Alessandro Trejo MD [address] [facility] [address] [place] [address] Social History Tobacco Use Types Packs/Day Years [...] Associated Diagnosis Comments US BREAST UNILATERAL Routine 06/10/2014 11:13 AM EDT MAMMO DIAGNOSTIC UNILATERAL Routine 06/10/2014 10:37 AM EDT documented in this encounter Results * ULTRASOUND BREAST UNILATERAL (06/10/2014 11:13 AM EDT) Anatomical Region Laterality Modality Breast Ultrasound 06/10/2014 11:1 3 AM EDT Narrative 06/10/2014 12:21 PM EDT DIAGNOSTIC LEFT MAMMOGRAM AND TARGETED LEFT BREAST ULTRASOUND - 06/10/2014: HISTORY: 48-year-old female with a history of right mastectomy here for continued surveillance of calcifications as well as for an oval hypoechoic mass in left breast at 2:00 on ultrasound. TECHNIQUE: ??Combination 2D/3D standard views of the left breast were performed in addition to magnification views and targeted left breast ultrasound. COMPARISON: ??Comparison is made to prior left mammograms dating back to 12/07/2008. FINDINGS: The breast tissue is composed of scattered fibroglandular densities. Marking clips from prior benign biopsies are identified in the central and upper outer quadrant of the left breast. Magnification views again demonstrate benign appearing calcifications, likely skin calcifications. No new suspicious masses, microcalcifications, or areas of architectural distortion are identified. Targeted ultrasound ??only demonstrated a fat lobule at 2:00. IMPRESSION- BI-RADS CATEGORY II, benign findings. RECOMMENDATION: Routine annual screening mammography in one year unless clinically indicated sooner. CAD was utilized. The standard false-negative rate of mammography is between 10% and 25%. Complex patterns or increased breast density will markedly elevate the false-negative rate of mammography. ?? A results letter, in lay terminology, will be given to the patient at the conclusion of the exam. ? Reading RadiologistArleen DUEÑAS ? Releasing Beth DUEÑAS ? Released Date Time- 06/11/14 0815 ? Supervisor Park Workers- MEstevan us Alessandro Trejo MD IMG US ORDERABLES Final Resu lt * MAMMOGRAPHY DIAGNOSTIC UNILATERAL (06/10/2014 10:37 AM EDT) Anatomical Region Laterality Modality Breast N/A Mammography 06/10/2014 10:3 7 AM EDT Narrative 06/10/2014 12:21 PM EDT DIAGNOSTIC LEFT MAMMOGRAM AND TARGETED LEFT BREAST ULTRASOUND - 06/10/2014: HISTORY: 48-year-old female with a history of right mastectomy here for continued surveillance of calcifications as well as for an oval hypoechoic mass in left breast at 2:00 on ultrasound. TECHNIQUE: ??Combination 2D/3D standard views of the left breast were performed in addition to magnification views and targeted left breast ultrasound. COMPARISON: ??Comparison is made to prior left mammograms dating back to 12/07/2008. FINDINGS: The breast tissue is composed of scattered fibroglandular densities. Marking clips from prior benign biopsies are identified in the central and upper outer quadrant of the left breast. Magnification views again demonstrate benign appearing calcifications, likely skin calcifications. No new suspicious masses, microcalcifications, or areas of architectural distortion are identified. Targeted ultrasound ??only demonstrated a fat lobule at 2:00. IMPRESSION- BI-RADS CATEGORY II, benign findings. RECOMMENDATION: Routine annual screening mammography in one year unless clinically indicated sooner. CAD was utilized. The standard false-negative rate of mammography is between 10% and 25%. Complex patterns or increased breast density will markedly elevate the false-negative rate of mammography. ?? A results letter, in lay terminology, will be given to the patient at the conclusion of the exam. ? Reading Beth DUEÑAS ? Releasing Beth DUEÑAS ? Released Date Time- 06/11/14814 ? Supervisor Park Workers- Laure us Alessandro Trejo MD IMG MAMMOGRAPHY ORDERABLES F inal Result documented in this encounter Visit Diagnoses Not on filedocumented in this encounter
--- OUTSIDE RECORDS SUMMARY | 2024-01-22 19:52 | XMS_ITS | Encounter Summary ---
[facility] [address] [place] [address] Care Team Providers Care Printing Press Operator Name Role Phone Unavailable Primary Care Provider Unavailabl e Encounter Details Date Type Department Care Team (Late st Contact Info) Description 05/13/2014 9:59 AM EDT - 05/13/2014 11:59 PM EDT Hospital Encounter [facility] [address] [place] [address] Cindy Allison MD [address] [facility] [address] [place] [address] Social History Tobacco Use Types [...] Associated Diagnosis Comments ECHO - CONVERTED Routine 05/13/2014 9:59 AM EDT documented in this encounter Results * CONVERTED (HISTORICAL) ECHO (05/13/2014 9:59 AM EDT) Anatomical Region Laterality Modality Ultrasound 05/13/2014 9:59 AM EDT Narrative 05/13/2014 9:59 AM EDT Patient: ?ROSEANNE ANURADHA ?? Med Rec#: ? [id number] ? : ?1965 ? Date: ? 05/13/2014 ?Age: ?48y ? Height: ? 165.1 cm / 65.0 in Weight: ? 81.65 kg / 180.0 lbs Sex: ?F ? BSA: ?1.89 Room#: ?OP ? Pharmacy Operations Specialist: ??Yaritza Monk [facility] Referring: ?MICHELA Reading: ?Cindy Allison MD Primary: ?Alessandro Dietzburn Transthoracic Echocardiogram Indication: NICM BP: ? 98/60 Conclusions 1. The estimated ejection fraction is 55-60%. 2. There is a trace of aortic regurgitation. 3. There is a trace of mitral regurgitation. 4. There is a trace tricuspid regurgitation. Findings [...] The aortic valve is trileaflet. There is a trace of aortic regurgitation. There is no evidence [...] Name ?Value ? RVIDd (AP) 2D ? 2.76 cm ? IVSd (2D) ? 0.95 cm ? LVIDd (2D) ?4.53 cm ? LVIDs (2D) ?2.67 cm ? LVPWd (2D) ?0.85 cm ? EF (2D) ? 72 % ? Ao root diameter (2D) ?? 2.7 cm ? LA dimension (AP) 2D ?3.4 cm ? LA:Ao ratio (2D) ?1.26 ratio ? Diastolic/Systolic Function Name ?Value ? LV lateral e' Vmax ?0.1 m/sec ? Pulmonic Valve/Qp:Qs Name ?Value ? PV acceleration time ?137 msec ? Procedure Note Interface, See Report - 07/29/2015 Patient: ANURADHA CRONIN [facility] Rec#: [id number] : 1965 Date: 05/13/2014 Age: 48y Height: 165.1 cm / 65.0 in Weight: 81.65 kg / 180.0 lbs Sex: F BSA: 1.89 Room#: OP Pharmacy Operations Specialist: Yaritza Monk [facility] Referring: MICHELA Reading: Cindy Allison MD Primary: Alessandro Trejo Transthoracic Echocardiogram Indication: NICM BP: 98/60 Conclusions 1. The estimated ejection fraction is 55-60%. 2. There is a trace of aortic regurgitation. 3. There is a trace of mitral regurgitation. 4. There is a trace tricuspid regurgitation. Findings [...] The aortic valve is trileaflet. There is a trace of aortic regurgitation. There is no evidence [...] Measurements Chambers Name Value RVIDd (AP) 2D 2.76 cm IVSd (2D) 0.95 cm LVIDd (2D) 4.53 cm LVIDs (2D) 2.67 cm LVPWd (2D) 0.85 cm EF (2D) 72 % Ao root diameter (2D) 2.7 cm LA dimension (AP) 2D 3.4 cm LA:Ao ratio (2D) 1.26 ratio Diastolic/Systolic Function Name Value LV lateral e' Vmax 0.1 m/sec Pulmonic Valve/Qp:Qs Name Value PV acceleration time 137 msec us See Report Interface CV ECHO ORDERABLES Final Re sult documented in this encounter Visit Diagnoses Not on filedocumented in this encounter
--- OUTSIDE RECORDS SUMMARY | 2024-01-22 19:52 | XMS_ITS | Encounter Summary ---
Author Organization [facility] Address [address] [place] [address] Care Team Providers Care Historiography Professor Name Role Phone Alessandro Trejo MD Primary Care Provider [phone] Reason for Referral * Hospital - Outpatient (Routine) - Closed Specialty Diagnoses / Procedures Referred By Tonie leigh Referred To Contact Radiology Diagnoses Abnormal mammogram Procedures US Breast Left Complete Alessandro Trejo MD Phone: tel: fax: Referral ID Status Reason Start Date Expiration Date Visits Re quested Visits Authorized [id number] Closed 11/15/2020 11/15/2021 1 1 Reason for Visit * Hospital - Outpatient (Routine) - Closed Specialty Diagnoses / Procedures Referred By Tonie leigh Referred To Contact Radiology Diagnoses Abnormal mammogram Procedures US Breast Left Complete Alessandro Trejo MD Phone: tel: fax: Referral ID Status Reason Start Date Expiration Date Visits Re quested Visits Authorized [id number] Closed 11/15/2020 11/15/2021 1 1 Encounter Details Date Type Department Care Team (Latest Contact Info) Description 11/15/2020 1:59 PM EDT - 11/15/2020 11:59 PM EDT Hospital Encounter [facility] [address] UL[address] [facility] [address] [place] [address] Abnormal mammogram Discharge Disposition: Home or Self [...] Priority Date/Time Associated Diagnosis Comments US BREAST LEFT COMPLETE Routine 11/15/2020 2:40 PM EDT Abnormal mammogram documented in this encounter Results * (ABNORMAL) US Breast Left Complete (11/15/2020 2:40 PM EDT) Anatomical Region Laterality Modality Breast Left Ultrasound 11/15/2020 3:01 PM EDT Impressions 11/15/2020 4:11 [...] of concern indicated by the patient. A campo marker is placed over a visible skin [...] the mass noted on the mammogram. us Anuradha Wood MD [facility] US ORDERABLES Final Resul t documented in this encounter Visit Diagnoses Diagnosis Abnormal mammogram Abnormal mammogram, unspecified documented in this encounter Care Teams Historiography Professor Relationship Specialty Start Date End Date Alessandro Trejo MD PCP - General 10/12/14 documented as of this encounter
--- OUTSIDE RECORDS SUMMARY | 2024-01-22 19:52 | XMS_ITS | Encounter Summary ---
[facility] [address] [place] [address] Care Team Providers Care Office Clerk Routine Name Role Phone Alessandro Terjo MD Primary Care Provider [phone] Encounter Details Date Type Department Care Team (Late st Contact Info) Description 09/14/2009 Conversion Encounter [facility] HISTORICAL CONV [address] [place] [address] Interface, See Report Social History [...] Diagnosis Comments CONVERTED (HISTORICAL) SURGICAL PATHOLOGY Routine 09/14/2009 6:36 AM EDT documented in this encounter Results * Converted Surgical Pathology (09/14/2009 6:36 AM EDT) 09/14/2009 6:36 AM EDT [facility] LABORATORY - 09/15/2009 11:14 AM EDT [address] [address] SURGICAL PATHOLOGY REPORT Patient Name: ANURADHA CRONIN MR#: [id number] : 1965 Gender: F Ordering Physician: Marissa, JANNA-TYLOR Copy To: ?? Location: 1S 0101-1 Collected: 09/14/2009 Received: 09/14/2009 Reported: 09/15/2009 Clinical Diagnosis and History The working history is status post right breast CA. Final Diagnosis LEFT BREAST TISSUE AND SKIN: ? Benign fibrocystic changes. ??[facility]/rw Amendments: Electronically Signed Out By JULI SANTOS Specimen(s) Received: Breast, reduction mammoplasty Gross Description Received in formalin labeled left breast tissue and skin is a 35.3 gram aggregate of dawkins/pink fibroadipose breast tissue fragments and dawkins wrinkled skin. ??Sectioning reveals predominately yellow adipose tissue. ??No masses, suspicious lesions, or previous biopsy sites are identified. ??Food Services Coordinator sections are submitted in cassettes A-C. ??[facility]/rw Microscopic Description Sections show benign breast and adipose tissue. ??Some fibrosis and slight ductal dilatation is seen. ??The overlying skin is unremarkable. ??[facility]/rw Previous Pertinent History [id number], 07/05/09. LEFT BREAST MASS AT 3 O'CLOCK US GUIDED NEEDLE BIOPSIES: Fibroadenoma. ([facility]) [id number], 03/08/09. ADDENDUM: Template updated to reflect IHC results on biopsy [id number]. ??1. RIGHT SENTINEL LYMPH NODES: No metastasis identified (0/2). ??2. 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 ??No invasive tumor identified. ??Two additional lymph nodes negative for metastasis. ??See TEMPLATE. ??([facility]) Procedures/Addenda us See Report Interface PATHOLOGY/CYTOLOGY ORDERABL ES Final Result [facility] [address] [place] [address], documented in this encounter Visit Diagnoses Not on filedocumented in this encounter Care Teams Office Clerk Routine Relationship Specialty Start Date End Date Alessandro Trejo MD PCP - General 10/12/14 documented as of this encounter
--- OUTSIDE RECORDS SUMMARY | 2024-01-22 19:52 | XMS_ITS | Encounter Summary ---
[facility] [address] [place] [id number] Care Team Providers Care Land Surveying Manager Name Role Phone Unavailable Primary Care Provider Unavailabl e Encounter Details Date Type Department Care Team (Late st Contact Info) Description 05/06/2013 10:51 AM EDT - 05/06/2013 11:59 PM EDT Hospital Encounter [place] [address] [address] [place], [place] [address] Cindy Allison MD [address] [place] [address] Social History Tobacco Use Types Packs/Day Years [...] Procedure Name Priority Date/Time Associated Diagnosis Comments BASIC METABOLIC PANEL Routine 05/06/2013 10:54 AM EDT documented in this encounter Results * (ABNORMAL) Basic metabolic panel (05/06/2013 10:54 AM EDT) Glucose 82 70 - 100 mg/dL [facility] BUN 16 9 - 23 mg/dL [facility] Comment: DF by IF @ 05/06/2013 12:35 NOTE: New Reference Range Creatinine 0.5(L) 0.6 - 1.3 mg/dL [facility] Sodium 142 132 - 146 mmol/L [facility] Comment: DF by IF @ 05/06/2013 12:35 NOTE: New Reference Range Potassium 4.3 3.5 - 5.5 mmol/L [facility] Comment: DF by IF @ 05/06/2013 12:35 NOTE: New Reference Range Chloride 103 99 - 109 mmol/L [facility] Comment: DF by IF @ 05/06/2013 12:35 NOTE: New Reference Range CO2 31 20 - 31 mmol/L [facility] Calcium 9.5 8.7 - 10.4 mg/dL [facility] eGFR 131 ml/min/1.7 32 [facility] Comment: DF by IF @ 05/06/2013 12:35 ?? National Kidney Foundation Guidelines ?Stage ? Description ?GFR ?1 ?Normal or High ? 90+ ?2 ?Mild decrease ? 60-89 ?3 ?Moderate decrease ?30-59 ?4 ?Severe decrease ?15-29 ?5 ?Kidney failure ?<15 Anion Gap 8 3 - 11 mmol/L [facility] Blood specimen (specimen) 05/06/2013 10:54 AM EDT Narrative [facility] - 05/06/2013 12:35 PM EDT Specimen Type: Blood us Cindy Allison MD LAB BLOOD ORDERABLES [facility] Result Performing Organization Address City/State/[facility] Co de Phone Number [facility] [address] [place] [address], documented in this encounter Visit Diagnoses Not on filedocumented in this encounter
--- OUTSIDE RECORDS SUMMARY | 2024-01-22 19:52 | XMS_ITS | Encounter Summary ---
Author Organization [facility] Address [address] [place] [address] Care Team Providers Care Supervisor Plate Forming Name Role Phone Alessandro Trejo MD Primary Care Provider + [phone] Encounter Details Date Type Department Care Team (Late st Contact Info) Description 01/05/2010 Historical Mammograp hy Encounter [facility] [place] [facility]ISTORICAL CONV [address] [place] [address] Interface, See Report Social History [...] Associated Diagnosis Comments MAMMO HISTORICAL RESULT Routine 01/05/2010 1:43 PM EST documented in this encounter Results * MAMMO HISTORICAL RESULT (01/05/2010 1:43 PM EST) Anatomical Region Laterality Modality Breast Mammography 01/05/2010 1:43 PM EST Narrative 01/06/2010 5:52 PM EST ?[facility] ? [address] ??[place], [place] [address] ? NAME: ANURADHA CRONIN ? : ??[birth year] ??MR#: [id number] ? LOC: ?? DIS ? AGE: 44Y ?? Pt type: CO ?Exam Date: 01/05/109 ? SEX: F ?? AN#:[id number] ?Ck-in#: [id number] ? Dino HERRERA ? [address] ? [address] ? [place] ?[place] ?[address] ? Chk-in # ?? Order ?Exam ?[id number] ?? 0001 ? [id number] ??BC MAMM DIAG UNILAT DIG PNL*L ? Ord Diag: ABN MMG ? BILATERAL DIAGNOSTIC DIGITAL MAMMOGRAM: ?? HISTORY: ??The patient is a 44-year old female with history of right mastectomy six follow-up left mammogram ordered from the exam 07/04/09. ?? FINDINGS: ??The breast parenchymal pattern is heterogeneously dense. ??A clip is now seen in the posterolateral 3 o'clock position of the left breast from a previous benign left breast biopsy. ??The round tissue in the posterolateral left breast at about the level of the nipple is slightly more well defined on today's examination particularly with the spot compression views. ??Follow-up ultrasound will be performed. ?? IMPRESSION: ??Bi-Rads Category 0, incomplete. ??Please accept this as a sufficient order for additional imaging. ?? RECOMMENDATION: ??Follow-up ultrasound. ?? Please see separately dictated report for the ultrasound and the final patient assessment. ?? The standard false-negative rate of mammography is between 10 and 25%. Complex patterns or increased breast density will markedly elevate the false-negative rate of mammography. ?? iCAD was utilized. ?? The results, in lay terminology, were given to the patient at the conclusion of her exam. ? FINAL ?CONTINUED ?Page ??1 ? RADIOLOGY REPORT ?[facility] ? [address] ??[place], [place] [address] ? NAME: ANURADHA CRONIN ? : ??[birth year] ??MR#: [id number] ? LOC: ?? DIS ? AGE: 44Y ?? Pt type: CO ?Exam Date: 01/05/10 1339 ? SEX: F ?? AN#:[id number] ?Ck-in#: [id number] ? JAVIER,Dino LOPES ? [address] ? [address] ? [place] ?[place] ?[address] ? Checkin-Exam Code Summary ? [id number] FAX TO: ??DR. DEUTSCH ?/READ BY/ MARQUES JONAS-MD ?/Released By/ MARQUES PATSEY-MD ?Released By Date/Time: ??11/19/10 1746 ?Studio Artist: ??MJP ? FINAL ? Page ??2 ? RADIOLOGY REPORT us See Report Interface IMG MAMMOGRAPHY ORDERABLES Final Result documented in this encounter Visit Diagnoses Not on filedocumented in this encounter Care Teams Supervisor Plate Forming Relationship Specialty Start Date End Date Alessandro Trejo MD PCP - General 10/12/14 documented as of this encounter
[2024-01-22 20:04] VITALS: BP 172/85; PULSE 94; RESP 16; TEMP 36.3; O2SAT 97; BMI 29.9
--- NOTE | 2024-01-22 20:14 | CT_ITS ---
PROCEDURE INFORMATION: Exam: CTA Abdomen and Pelvis With Contrast Exam date and time: 01/22/2024 9:16 PM Age: 58 years old Clinical indication: Abdominal pain; Localized; Right lower quadrant (rlq); Additional info: Rlq pain out of proportion TECHNIQUE: Imaging protocol: Computed tomographic angiography of the abdomen and pelvis with contrast. Exam focused on the arteries. 3D rendering (Not supervised by radiologist): MIP and/or 3D reconstructed images were created by the technologist. Radiation optimization: All CT scans at this facility use at least one of these dose optimization techniques: automated exposure control; mA and/or kV adjustment per patient size (includes targeted exams where dose is matched to clinical indication); or iterative reconstruction. Contrast material: ISO 370; Contrast volume: 80 ml; Contrast route: INTRAVENOUS (IV); COMPARISON: CT ABDOMEN PELVIS W CON 07/26/2019 11:53 PM FINDINGS: Aorta: Moderate atherosclerotic calcification throughout the aorta and iliac arteries. No evidence of aneurysm or dissection. Celiac trunk and mesenteric arteries: No occlusion or significant stenosis. Renal arteries: No occlusion or significant stenosis. Right iliac arteries: No occlusion or significant stenosis. Left iliac arteries: No occlusion or significant stenosis. Liver: Liver appears mildly enlarged and diffusely fatty. No focal hepatic abnormality. Gallbladder and biliary ducts: Gallbladder is surgically absent. No significant biliary ductal dilation. Pancreas: Unremarkable. No mass. No ductal dilation. Spleen: Unremarkable. No splenomegaly. Adrenal glands: Unremarkable. No mass. Kidneys and ureters: 3.6 mm stone at the right ureterovesical junction producing moderate right hydronephrosis and mild right perinephric edema. Left kidney appears normal. Stomach and bowel: Unremarkable. No obstruction. No mucosal thickening. Appendix: The appendix is visualized and appears normal. Intraperitoneal space: Unremarkable. No free air. No significant fluid collection. Lymph nodes: Unremarkable. No enlarged lymph nodes. Urinary bladder: Unremarkable. No mass. Reproductive: Unremarkable as visualized. Bones/joints: [id number] degenerative changes throughout the lower spine. No vertebral body compression. No acute fracture. Soft tissues: Unremarkable. IMPRESSION: 3.6 mm right UVJ stone with moderate hydronephrosis
[2024-01-22 20:24] LABS: Basophils % 0.7 % (0.1-2.0); Eosinophils # 0.1 K/mm3 (0.0-0.4); Eosinophils % 2.1 % (0.1-12.0); Hematocrit 42.7 % (37.0-47.0); Hemoglobin 14.2 g/dL (12.2-16.2); Lymphocytes # 1.5 K/mm3 (0.7-4.5); Lymphocytes % 24.3 % (10-50); Mean Corpuscular HGB Conc 33.3 g/dL (31.8-35.4); Mean Corpuscular Hemoglobin 27.8 pg (27.0-31.2); Mean Corpuscular Volume 83.4 fl (81-99); Mean Platelet Volume 7.2 fl (7.4-10.4); Monocytes # 0.2 K/mm3 (0.1-1.0); Monocytes % 4.1 % (1.7-9.3); Neutrophils # 4.1 K/mm3 (1.8-7.8); Neutrophils % 68.9 % (37.0-80.0); Platelet Count 230 K/mm3 (142-424); Red Blood Count 5.12 M/mm3 (4.20-5.40); Red Cell Distribution Width 15.5 % (11.5-17.5)
--- NOTE | 2024-01-22 20:24 | HMH.EDGENADL ---
Discharge Plan Disposition Patient Disposition: Xfer Short-Term Hosp Prescriptions Prescriptions: No Action phenazopyridine [Pyridium] 200 mg tablet 200 mg PO Q8H 2 Days Qty: 6 0RF ciprofloxacin HCl [Cipro] 500 mg tablet 500 mg PO BID 7 Days Qty: 14 0RF ondansetron 4 mg Tablet,Disintegrating 4 mg PO Q8H PRN (Reason: Nausea) Qty: 8 0RF nitrofurantoin monohyd/m-cryst [Macrobid] 100 mg Capsule 100 mg PO BID Qty: 10 0RF Rx Instructions: must administer with a meal/food Referrals Follow up/Referrals: Provider,Referral, MD [Primary Care Provider] - See instructions Clinical Impressions Clinical Impression: UTI (urinary tract infection), Calculus of distal right ureter, Hydronephrosis Stand Alone Forms Stand Alone Forms: Transfer Record - ED Instructions Patient Instructions: DI for Acute Abdominal Pain Print Language Print Language: Indonesian Discharge ED Provider: Carlito Oliveira General Adult HPI <Carlito Oliveira MD - Last Filed: 01/22/24 23:45> General Chief complaint: Abdominal Pain Stated complaint: right side/hip pain Time Seen by Provider: 01/22/24 20:02 Mode of Arrival: Ambulatory Source of Information: Patient Limitations: No Limitations Description of Symptoms (Recalled from ER Triage Doc. by RN): Pt states she has had RLQ pain for past 2 hours. Skin pink warm and dry REsp full and easy Speech clear and appropriate Denies nausea or vomiting. History of Present Illness HPI narrative: Please note that above description of symptoms, in this electronic medical record under categorization of recalled from ER triage doctor by RN are reflective of an initial nursing assessment, however, is not reflective of my full history and physical exam that was personally taken and clarified. Consequentially, this preceding description of symptoms, which may include the patient's categorized chief complaint in the EMR, do not reflect my personal clinical impression, and the ultimate description of history of present illness and patient stated complaints should be deferred to this section of the note. Unless stated otherwise or congruent with this section of the note, additional signs, symptoms, or incongruence should be interpreted as inaccurate with my clinical impression. Related Data Previous Rx's ?Medication ?Instructions ?Recorded ciprofloxacin HCl 500 mg tablet 500 mg PO BID 7 days #14 tabs 04/12/23 (Cipro) ondansetron 4 mg disintegrating 4 mg PO Q8H PRN Nausea #8 tabs 04/12/23 tablet phenazopyridine 200 mg tablet 200 mg PO Q8H 2 days #6 tabs 04/12/23 (Pyridium) nitrofurantoin 100 mg PO BID #10 caps 04/14/23 monohydrate/macrocrystals 100 mg capsule (Macrobid) Allergies Allergy/AdvReac Type Severity Reaction Status Date / Time codeine (CODEINE) Allergy Unknown ITCHING Verified 01/16/22 20:15 hydromorphone (From DILAUDID) Allergy Unknown CHEST PAIN Verified 01/16/22 20:15 morphine (MORPHINE) Allergy Unknown ITCHING Verified 01/16/22 20:15 sulfamethoxazole (From Allergy Unknown UNKNOWN Verified 01/16/22 20:15 BACTRIM) trimethoprim (From BACTRIM) Allergy Unknown UNKNOWN Verified 01/16/22 20:15 Sulfa (Sulfonamide Allergy Verified 01/16/22 20:15 Antibiotics) [facility] <Carlito Oliveira MD - Last Filed: 01/22/24 23:45> [facility] Disclaimer: The information contained in this section may have been updated after the patient was seen, as this information can be updated by other users. Medical History (Updated 01/23/24 @ 02:00 by Jude Ward MD) Urinary tract infection Migraine Asthma Social History Smoking Status: Current every day smoker alcohol intake: never substance use type: denies use current occupational status: other Travel in the last 8 weeks: None household members: family housing: house Other Medical History Have you received the Flu Vaccine for this season: No Have you received the Pneumonia Vaccine: No <Carlito Oliveira MD - Last Filed: 01/22/24 23:45> ROS Obtained: Yes All systems reviewed & no additional complaints except as documented Physical Exam <Carlito Oliveira MD - Last Filed: 01/22/24 23:45> General General appearance: alert and obese Comment: Appears uncomfortable, but no acute distress Head Head exam: atraumatic and normocephalic Eye Eye exam: Present normal appearance, PERRL and EOMI Neck Neck exam: Present normal inspection, full ROM and trachea midline Respiratory Respiratory exam: Absent respiratory distress, wheezes, stridor, accessory muscle use or prolonged expiratory phase Cardiovascular Cardiovascular exam: Present other (Pulses equal symmetric in upper and lower extremities) Abdominal Exam Abdominal exam: Present soft and tenderness (Tenderness unable to be elicited with deep palpation, but still present on right side of abdomen); Absent distention, guarding, rebound, rigidity or pulsatile mass Abdominal tenderness: Present RUQ, RLQ and mild Extremities Exam Extremities exam: Absent edema Neurological Exam Neurological exam: Present alert, oriented X3 and CN II-XII intact; Absent motor sensory deficit Skin Skin exam: Present warm and dry; Absent diaphoresis or erythema Medical Decision Making <Carlito Oliveira MD - Last Filed: 01/22/24 23:45> Medical Records Medical records reviewed: Yes I reviewed the patient's medical records. Screening: Per USPSTF and CDC recommendations, given the prevalence of disease in our region, it is our hospital?s policy to screen for HIV and viral Hepatitis for all patients aged 18 and over and those with ongoing risk factors. Jeevan Inquiry Pt receiving controlled substance: No Jeevan was queried for this patient: No Vital Signs: 01/22/24 20:04 Temperature 97.4 F L Temperature Source Oral Pulse Rate [Right Brachial] 94 H Respiratory Rate 16 Blood Pressure [Right Arm] 172/85 H Blood Pressure Mean [Right Arm] 114 Blood Pressure Source [Right Arm] Automatic Cuff Blood Pressure Position [Right Arm] Sitting 02 Sat by Pulse Oximetry 97 Oxygen Delivery Method Room Air Lab Data Lab Results 01/22/24 20:05: WBC 6.0, RBC 5.12, Hgb 14.2, Hct 42.7, MCV 83.4, MCH 27.8, MCHC 33.3, RDW 15.5, Plt Count 230, MPV 7.2 L, Neut % (Auto) 68.9, Lymph % (Auto) 24.3, [place] % (Auto) 4.1, Eos % (Auto) 2.1, Baso % (Auto) 0.7, Neut # (Auto) 4.1, Lymph # (Auto) 1.5, [place] # (Auto) 0.2, Eos # (Auto) 0.1, Baso # (Auto) 0.0, APTT 30.0, Sodium 141, Potassium 3.9, Chloride 106, Carbon Dioxide 30, Anion Gap 8.9, BUN 17, Creatinine 0.60, Estimated Creat Clear 129, Estimated GFR 102, Est GFR ( Amer) 123, Glucose 96, Calcium 9.9, Total Bilirubin 0.6, AST 42 H, ALT 45, Alkaline Phosphatase 98, Troponin I < 0.01, Total Protein 7.4, Albumin 4.6, Globulin 2.8, Albumin/Globulin Ratio 1.6, Lipase 44 01/22/24 21:04: Lactate 0.8 01/22/24 22:00: Urine Color Yellow, Urine Appearance Clear, Urine pH 5.5, Ur Specific Sloan 1.015, Urine Protein Negative, Urine Glucose (UA) Negative, Urine Ketones Negative, Urine Blood Negative, Urine Nitrate Positive A, Urine Bilirubin Negative, Urine Urobilinogen 0.2, Ur Leukocyte Esterase Negative, Urine WBC 3-5, Ur Squamous Epith Cells 3-5, Calcium Oxalate Crystal Trace, Amorphous Sediment 3+, Urine Bacteria 1+ 01/22/24 20:05 01/22/24 20:05 Orders (Tests/Meds): ED MEDICATIONS Discontinued Medications Generic Name Dose Route Start Last Admin Trade Name Genevieve PRN Reason Stop Dose Admin Ceftriaxone Sodium 1 gm 01/22/24 22:37 01/22/24 22:42 Ceftriaxone 1gm Vial IV 01/22/24 22:38 1 gm ONCE ONE Administration Diphenhydramine HCl 25 mg 01/22/24 20:14 01/22/24 20:26 Diphenhydramine 50mg/Ml Vial IV 01/22/24 20:15 25 mg ONCE ONE Administration Iopamidol 80 ml 01/22/24 21:20 01/22/24 21:23 Iopamidol-370 (76%);100ml Bottle IV 01/22/24 21:21 80 ml ONCE ONE Administration Ketorolac Tromethamine 15 mg 01/22/24 20:14 01/22/24 20:26 Ketorolac 30mg/Ml Vial IV 01/22/24 20:15 15 mg ONCE ONE Administration Morphine Sulfate 4 mg 01/22/24 20:16 01/22/24 20:27 Morphine 4mg/Ml Syringe IV 01/22/24 20:17 4 mg ONCE ONE Administration Ondansetron HCl 4 mg 01/22/24 20:14 01/22/24 20:26 Ondansetron 4mg/2ml Vial IV 01/22/24 20:15 4 mg ONCE ONE Administration Sodium Chloride 10 ml 01/22/24 21:20 01/22/24 21:22 Sodium Chloride 0.9% 10ml Syr (Rad Only) IV 01/22/24 21:21 10 ml ONCE ONE Administration Sodium Chloride 50 ml 01/22/24 21:20 01/22/24 21:22 0.9 % Sodium Chloride 50 Ml Vial IV 01/22/24 21:21 50 ml ONCE ONE Administration ORDERS Category Date Time Status CT angio abdomen pelvis Stat Cat Scan 01/22/24 20:14 Completed Complete Blood Count Auto Diff Stat Lab 01/22/24 20:05 Completed Comprehensive Metabolic Panel Stat Lab 01/22/24 20:05 Completed Lactic Acid Stat Lab 01/22/24 21:04 Completed Lipase Stat Lab 01/22/24 20:05 Completed PTT [Activated Partial Thrombo Time] Stat Lab 01/22/24 20:05 Completed Troponin I Q3H Lab 01/23/24 02:15 Ordered Troponin I Stat Lab 01/22/24 20:05 Completed Urinalysis and Microscopic Stat Lab 01/22/24 22:00 Completed Urine Culture Stat Micro 01/22/24 22:00 Received Medical Decision Narrative: 58-year-old female history of cholecystectomy, multiple C-sections, endometriosis status post laparoscopic and ablation x 2, breast cancer status post right-sided mastectomy currently in remission presenting with right side abdominal pain. Patient states that started about an hour before she got here. Was walking her dog at the time. States that the dog did not run, jerked her, cause any injury. Started hurting out of nowhere. Right side of abdomen, does not radiate, 10 out of 10 initially, now 8 out of 10. Has not taken anything for the pain. No dysuria, hematuria, frequency urgency, no diarrhea, constipation, blood in her stool. No vomiting. No fevers or chills. Patient has been able to tolerate p.o. intake today without issue. Has never had pain like this before. History was obtained via conversation with patient. On arrival, patient hemodynamically stable, alert, oriented x4, appropriate, GCS 15, moving all extremities spontaneously, pupils equal and reactive to light. Full physical exam performed and significant for uncomfortable appearing female no acute distress. Abdomen is soft, nondistended. No overlying skin changes. Pain seems to be out of proportion to physical exam as I am not able to elicit any tenderness on my exam. No flank tenderness. Differential includes PUD, gastritis, enteritis, gastroenteritis, pancreatitis, SBO, colitis, diverticulitis, nephrolithiasis, UTI, cholecystitis, choledocholithiasis, appendicitis, torsion, hepatitis, aortic pathology, mesenteric ischemia among others. Patient placed on continuous cardiac monitoring and continuous pulse ox with initial blood pressure 172/85, heart rate 94, saturation 97% on room air. Patient was given morphine (Benadryl and Zofran to combat side effects she has had in the past), Toradol for symptomatic management and correction of underlying abnormalities. Workup independently interpreted and significant for nonactionable CBC or chemistry, normal kidney function. Urinalysis with nitrate positive urine. On independent interpretation of imaging, patient has 4 mm right UVJ stone with moderate hydro-. See radiology read for full review of final results. Multiple hospitals were contacted, numerous on divert, waitlisted, etc. Prior to disposition, care handed off to oncoming physician. Lay Out Technician disclaimer Much of this encounter note is an electronic bottom crane operator spoken language to printed text. Electronic bottom crane operator of the spoken language may permit errors. Although I have reviewed the note, some errors may still exist. <Jude Ward MD - Last Filed: 01/23/24 02:07> Vital Signs: 01/22/24 20:04 Temperature 97.4 F L Temperature Source Oral Pulse Rate [Right Brachial] 94 H Respiratory Rate 16 Blood Pressure [Right Arm] 172/85 H Blood Pressure Mean [Right Arm] 114 Blood Pressure Source [Right Arm] Automatic Cuff Blood Pressure Position [Right Arm] Sitting 02 Sat by Pulse Oximetry 97 Oxygen Delivery Method Room Air Lab Data Lab Results 01/22/24 20:05: WBC 6.0, RBC 5.12, Hgb 14.2, Hct 42.7, MCV 83.4, MCH 27.8, MCHC 33.3, RDW 15.5, Plt Count 230, MPV 7.2 L, Neut % (Auto) 68.9, Lymph % (Auto) 24.3, [place] % (Auto) 4.1, Eos % (Auto) 2.1, Baso % (Auto) 0.7, Neut # (Auto) 4.1, Lymph # (Auto) 1.5, [place] # (Auto) 0.2, Eos # (Auto) 0.1, Baso # (Auto) 0.0, APTT 30.0, Sodium 141, Potassium 3.9, Chloride 106, Carbon Dioxide 30, Anion Gap 8.9, BUN 17, Creatinine 0.60, Estimated Creat Clear 129, Estimated GFR 102, Est GFR ( Amer) 123, Glucose 96, Calcium 9.9, Total Bilirubin 0.6, AST 42 H, ALT 45, Alkaline Phosphatase 98, Troponin I < 0.01, Total Protein 7.4, Albumin 4.6, Globulin 2.8, Albumin/Globulin Ratio 1.6, Lipase 44 01/22/24 21:04: Lactate 0.8 01/22/24 22:00: Urine Color Yellow, Urine Appearance Clear, Urine pH 5.5, Ur Specific Sloan 1.015, Urine Protein Negative, Urine Glucose (UA) Negative, Urine Ketones Negative, Urine Blood Negative, Urine Nitrate Positive A, Urine Bilirubin Negative, Urine Urobilinogen 0.2, Ur Leukocyte Esterase Negative, Urine WBC 3-5, Ur Squamous Epith Cells 3-5, Calcium Oxalate Crystal Trace, Amorphous Sediment 3+, Urine Bacteria 1+ Orders (Tests/Meds): ED MEDICATIONS Discontinued Medications Generic Name Dose Route Start Last Admin Trade Name Freq PRN Reason Stop Dose Admin Ceftriaxone Sodium 1 gm 01/22/24 22:37 01/22/24 22:42 Ceftriaxone 1gm Vial IV 01/22/24 22:38 1 gm ONCE ONE Administration Diphenhydramine HCl 25 mg 01/22/24 20:14 01/22/24 20:26 Diphenhydramine 50mg/Ml Vial IV 01/22/24 20:15 25 mg ONCE ONE Administration Iopamidol 80 ml 01/22/24 21:20 01/22/24 21:23 Iopamidol-370 (76%);100ml Bottle IV 01/22/24 21:21 80 ml ONCE ONE Administration Ketorolac Tromethamine 15 mg 01/22/24 20:14 01/22/24 20:26 Ketorolac 30mg/Ml Vial IV 01/22/24 20:15 15 mg ONCE ONE Administration Morphine Sulfate 4 mg 01/22/24 20:16 01/22/24 20:27 Morphine 4mg/Ml Syringe IV 01/22/24 20:17 4 mg ONCE ONE Administration Ondansetron HCl 4 mg 01/22/24 20:14 01/22/24 20:26 Ondansetron 4mg/2ml Vial IV 01/22/24 20:15 4 mg ONCE ONE Administration Sodium Chloride 10 ml 01/22/24 21:20 01/22/24 21:22 Sodium Chloride 0.9% 10ml Syr (Rad Only) IV 01/22/24 21:21 10 ml ONCE ONE Administration Sodium Chloride 50 ml 01/22/24 21:20 01/22/24 21:22 0.9 % Sodium Chloride 50 Ml Vial IV 01/22/24 21:21 50 ml ONCE ONE Administration ORDERS Category Date Time Status CT angio abdomen pelvis Stat Cat Scan 01/22/24 20:14 Completed Complete Blood Count Auto Diff Stat Lab 01/22/24 20:05 Completed Comprehensive Metabolic Panel Stat Lab 01/22/24 20:05 Completed Lactic Acid Stat Lab 01/22/24 21:04 Completed Lipase Stat Lab 01/22/24 20:05 Completed PTT [Activated Partial Thrombo Time] Stat Lab 01/22/24 20:05 Completed Troponin I Q3H Lab 01/23/24 02:15 Ordered Troponin I Stat Lab 01/22/24 20:05 Completed Urinalysis and Microscopic Stat Lab 01/22/24 22:00 Completed Urine Culture Stat Micro 01/22/24 22:00 Received Medical Decision Narrative: 58-year-old female history of cholecystectomy, multiple C-sections, endometriosis status post laparoscopic and ablation x 2, breast cancer status post right-sided mastectomy currently in remission presenting with right side abdominal pain. Patient states that started about an hour before she got here. Was walking her dog at the time. States that the dog did not run, jerked her, cause any injury. Started hurting out of nowhere. Right side of abdomen, does not radiate, 10 out of 10 initially, now 8 out of 10. Has not taken anything for the pain. No dysuria, hematuria, frequency urgency, no diarrhea, constipation, blood in her stool. No vomiting. No fevers or chills. Patient has been able to tolerate p.o. intake today without issue. Has never had pain like this before. History was obtained via conversation with patient. On arrival, patient hemodynamically stable, alert, oriented x4, appropriate, GCS 15, moving all extremities spontaneously, pupils equal and reactive to light. Full physical exam performed and significant for uncomfortable appearing female no acute distress. Abdomen is soft, nondistended. No overlying skin changes. Pain seems to be out of proportion to physical exam as I am not able to elicit any tenderness on my exam. No flank tenderness. Differential includes PUD, gastritis, enteritis, gastroenteritis, pancreatitis, SBO, colitis, diverticulitis, nephrolithiasis, UTI, cholecystitis, choledocholithiasis, appendicitis, torsion, hepatitis, aortic pathology, mesenteric ischemia among others. Patient placed on continuous cardiac monitoring and continuous pulse ox with initial blood pressure 172/85, heart rate 94, saturation 97% on room air. Patient was given morphine (Benadryl and Zofran to combat side effects she has had in the past), Toradol for symptomatic management and correction of underlying abnormalities. Workup independently interpreted and significant for nonactionable CBC or chemistry, normal kidney function. Urinalysis with nitrate positive urine. On independent interpretation of imaging, patient has 4 mm right UVJ stone with moderate hydro-. See radiology read for full review of final results. Multiple hospitals were contacted, numerous on divert, waitlisted, etc. Prior to disposition, care handed off to oncoming physician. Lay Out Technician disclaimer Much of this encounter note is an electronic bottom crane operator spoken language to printed text. Electronic bottom crane operator of the spoken language may permit errors. Although I have reviewed the note, some errors may still exist. : Upon my assumption of care at 2300 hrs. patient was stable and resting more comfortably after having received pain medications. I agree with the assessment and plan from Dr. Oliveira. She received IV Rocephin for UTI. At the time of my assumption of care [facility] was unable to take the patient and we were awaiting a callback from [facility]. I discussed this case with Dr. Ingram, [facility], who agreed the patient required inpatient urology management and accepted the patient, however the patient had to formally be accepted by the hospitalist. Hospitalist was initially unavailable, however eventually I was able to speak with Dr. Tom with their hospitalist group who after reviewing labs and imaging findings with me graciously excepted the patient for admission to [facility]. Patient agreeable to transfer and understands the plan. Patient to be transferred via BLS ambulance. Patient transferred in stable condition Critical Care <Carlito Oliveira MD - Last Filed: 01/22/24 23:45> Critical Care Time Critical Care Time: No
[2024-01-22] MEDS: diphenhydrAMINE 50MG/ML VIAL 25 MG IV (20:26)
[2024-01-22] MEDS: ONDANSETRON 4MG/2ML VIAL 4 MG IV (20:26)
[2024-01-22] MEDS: KETOROLAC 30MG/ML VIAL 15 MG IV (20:26)
[2024-01-22 20:27] LABS: Albumin Level 4.6 g/dl (3.5-5.0); Chloride 106 mmol/L (98-107); Potassium 3.9 mmoL/L (3.5-5.1); Sodium 141 mmol/L (136-145)
[2024-01-22] MEDS: MORPHINE 4MG/ML SYRINGE 4 MG IV (20:27)
[2024-01-22 20:29] LABS: Blood Urea Nitrogen 17 mg/dl (7-17); Creatinine Clearance Estimated 129 mL/min (50-200); Estimated Glomerular Filt Rate 102 ml/min (>60); GFR (African American) 123 ML/MIN (>60)
[2024-01-22 20:30] LABS: Alanine Aminotransferase 45 U/L (12-78); Albumin/Globulin Ratio 1.6 (1.1-1.8); Alkaline Phosphatase 98 U/L (38-126); Anion Gap 8.9 mEq/L (5-15); Aspartate Amino Transferase 42 U/L (14-36); Bilirubin,Total 0.6 mg/dl (0.2-1.3); Carbon Dioxide 30 mmol/L (22.0-30.0); Globulin 2.8 g/dL (1.3-3.2); Lipase 44 U/L (23-300); Total Protein,Serum 7.4 g/dl (6.3-8.2)
[2024-01-22 20:31] LABS: Calcium 9.9 mg/dl (8.4-10.2); Glucose 96 mg/dl (74-100)
[2024-01-22 21:09] LABS: Troponin I < 0.01 ng/ml (0.00-0.034)
--- NOTE | 2024-01-22 21:10 | PC.NURSE ---
Pt to CT scan via wheelchair
[2024-01-22 21:20] LABS: Lactic Acid 0.8 mmol/L (0.7-2.1)
[2024-01-22] MEDS: 0.9 % SODIUM CHLORIDE 50 ML VIAL IV (21:22)
[2024-01-22] MEDS: SODIUM CHLORIDE 0.9% 10ML SYR (RAD ONLY) 10 ML IV (21:22)
[2024-01-22] MEDS: IOPAMIDOL-370 (76%);100ML BOTTLE 80 ML IV (21:23)
[2024-01-22 22:05] LABS: Microscopic, Urine URINE MICROSCOPIC (MICROSCOPIC)
[2024-01-22 22:17] LABS: Appearance,Urine CLEAR (Clear); Bilirubin,Urine Negative (Negative); Blood, Urine Negative (Negative); Color,Urine YELLOW (Yellow); Glucose,Urine (UA) Negative (Negative); Ketones,Urine Negative (Negative); Leukocyte Esterase,Urine Negative (Negative); Nitrate,Urine POSITIVE (Negative); PH,Urine 5.5 (5.0-8.5); Protein,Urine Negative (Negative); Specific Gravity, Urine 1.015 (1.005-1.030); Urobilinogen,Urine 0.2 EU/dl (0.2)
[2024-01-22] MEDS: cefTRIAXone 1GM VIAL 1 GM IV (22:42)
--- NOTE | 2024-01-22 22:46 | PC.NURSE ---
Pt cathed for urine specimen. Labs including cultures drawn and sent to lab.
--- NOTE | 2024-01-22 22:48 | PC.NURSE ---
Contacted [facility] in regards to transfer for this patient. They will be reaching out to [place] and will be calling us back.
[2024-01-22 22:54] LABS: Amorphous Sediment,Urine 3+ /lpf; Bacteria,Urine 1+ /lpf; Calcium Oxalate Crystals,Urine Trace /lpf
--- NOTE | 2024-01-22 23:34 | PC.NURSE ---
call to [facility] for transfer
--- NOTE | 2024-01-22 23:41 | PC.NURSE ---
Call placed to [facility], they have a wait list, Dr. Oliveira chose no to have patient placed on list
--- NOTE | 2024-01-22 23:43 | PC.NURSE ---
Call placed to [facility] they will call back
--- NOTE | 2024-01-23 00:30 | PC.NURSE ---
patient updated on transfer status
--- NOTE | 2024-01-23 01:02 | PC.NURSE ---
call placed to [facility] for update television camera operator from Hospitalist, the ED is busy there and he will call us as soon as he gets freed up
--- NOTE | 2024-01-23 01:19 | PC.NURSE ---
call back to [facility] to check on status
[2024-01-23 02:25] VITALS: BP 117/79; PULSE 79; RESP 16; TEMP 36.5; O2SAT 97
== END 2024-01-23 02:26 | disposition short-term general hospital (02) ==
PROVIDERS: Emergency Provider Emergency Medicine
DX: N13.30 Unspecified hydronephrosis (principal); N20.1 Calculus of ureter; N39.0 Urinary tract infection, site not specified; R10.31 Right lower quadrant pain
CPT/HCPCS: 74174; 80053; 81001; 83605; 83690; 84484; 85025; 85730; 87086; 96374; 96375; 99285; J0696; J1200; J1885; J2270; J2405; Q9967

== ENCOUNTER 2024-03-09 15:20 | Outpatient (CLI) | payer MEDICARE, SELFPAY ==
--- NOTE | 2024-03-09 15:26 | CT_ITS ---
FINAL REPORT TECHNIQUE: Axial images through the abdomen and pelvis were performed without contrast. This study was performed with techniques to keep radiation doses as low as reasonably achievable, (ALARA). Individualized dose reduction techniques using automated exposure control or adjustment of mA and/or kV according to the patient's size were employed. CLINICAL HISTORY: CALCULUS OF URETER states hx of kidney stone right side COMPARISON: 01/22/2024 FINDINGS: Abdomen: A right subglandular breast implant is noted. There is a 5 mm noncalcified nodule in the left lung base, stable since the prior exam of January 2024. The liver parenchyma demonstrates diffuse fatty infiltration. The gallbladder is present. The pancreas, adrenals and kidneys are unremarkable. Calcified granulomas are noted in the spleen. Pelvis: The urinary bladder is decompressed. The appendix is unremarkable. The uterus is anteverted. Scattered diverticula are present in the sigmoid colon. There is no pelvic mass or inflammation. IMPRESSION: 5 mm noncalcified nodule in the left lung base, stable since prior exam of January 2024. According to Fleischner criteria, 1 year follow-up chest CT is recommended for further evaluation. No evidence of renal or ureteral stones is seen. Reviewed, Interpreted and Dictated by Sergey Valdes MD Transcribed by Bárbara Buitrago Authenticated and [facility]
== END 2024-03-09 23:59 | disposition home or self-care (01) ==
PROVIDERS: PCP Physician Assistant; Visit Provider Urology
DX: N20.1 Calculus of ureter (principal)
CPT/HCPCS: 74176